=== PATIENT | female | born 1950 | race Caucasian/White ===

== ENCOUNTER 2023-06-25 09:25 | Outpatient (OUT) | payer MEDICARE, SELFPAY ==
--- NOTE | 2023-06-25 | XR_ITS ---
[address] [address] Patient Name: ALEXANDRE PATTEN MRN: [id number] date: 1950 Sex: F Assigned Patient Location: Current Patient Location: Accession/Order Number: [id number] Exam Date: 06/25/2023 09:28 Report Date: 06/25/2023 10:15 At the request of: KAVITHA PARSONS Procedure: XR ankle RT min 3V PROCEDURE: XR ankle RT min 3V, XR foot RT min 3V , 10/31/2021 COMPARISON: 06/19/2022 HISTORY: RIGHT ANKLE PAIN FINDINGS: BONES:Stable tibiotalar arthroplasty with talar dome and tibial plateau replacement. Anatomic alignment with no acute fracture, dislocation or mechanical failure. Stable partial collapse of the talus with subtalar fusion. Degenerative changes with joint space narrowing and marginal osteophyte formation . Stable arthroplasty base of the first proximal phalanx. Stable osteotomy head of the first metatarsal SOFT TISSUES:Negative. No visible soft tissue swelling. EFFUSION:None visible. OTHER: Negative. XR/XR ankle RT min 3V IMPRESSION: Stable tibiotalar joint replacement Electronically authenticated by: MARY CHRISTIAN Date: 06/25/2023 10:15
--- NOTE | 2023-06-25 | XR_ITS ---
[address] [address] Patient Name: ALEXANDRE PATTEN MRN: [id number] date: 1950 Sex: F Assigned Patient Location: Current Patient Location: Accession/Order Number: [id number] Exam Date: 06/25/2023 09:28 Report Date: 06/25/2023 10:15 At the request of: KAVITHA PARSONS Procedure: XR foot RT min 3V PROCEDURE: XR ankle RT min 3V, XR foot RT min 3V , 10/31/2021 COMPARISON: 06/19/2022 HISTORY: RIGHT ANKLE PAIN FINDINGS: BONES:Stable tibiotalar arthroplasty with talar dome and tibial plateau replacement. Anatomic alignment with no acute fracture, dislocation or mechanical failure. Stable partial collapse of the talus with subtalar fusion. Degenerative changes with joint space narrowing and marginal osteophyte formation . Stable arthroplasty base of the first proximal phalanx. Stable osteotomy head of the first metatarsal SOFT TISSUES:Negative. No visible soft tissue swelling. EFFUSION:None visible. OTHER: Negative. XR/XR foot RT min 3V IMPRESSION: Stable tibiotalar joint replacement Electronically authenticated by: MARY CHRISTIAN Date: 06/25/2023 10:15
== END 2023-06-25 09:26 | disposition home or self-care (01) ==
LOC: EC 09:25
PROVIDERS: PCP Internal Medicine; Visit Provider Podiatrist Foot & Ankle Surgery
DX: M19.071 Primary osteoarthritis, right ankle and foot (principal); Z96.661 Presence of right artificial ankle joint
CPT/HCPCS: 73610; 73630

== ENCOUNTER 2023-07-14 12:01 | Outpatient (OUT) | payer MEDICARE, SELFPAY ==
--- NOTE | 2023-07-14 12:36 | P.CN_ITS ---
Consult Note: HPI Data of Consult Patient: new to practice Consult date: 07/14/23 Requesting Physician: James Quigley MD Primary Care Provider: ELSIE JEFFREY Consult Narrative Reason for consult: low back, left hip and leg pain Narrative: 72yof who presents for evaluation. worsening left low back pain with radiation into left hip and leg. ongoing for years, but continues to worsen and makes it difficult to sleep. has engaged in >6 weeks of provider directed home exercise program, with limited benefit. uses celebrex with mild benefit. denies adverse med side effects. cc:: CC: James Quigley MD Review of Systems ROS Status of ROS 10 or more systems reviewed and unremark able except as noted in history and below Exam Narrative Exam Narrative: Psych-alert and oriented x 3. Attentive and appropriate, constitutionally normal, displays normal mood and affect per situation. There are no obvious deficits in memory, reasoning, or intellect.? Skin-no obvious rashes, bruising, erythema noted to the patient's area of pain.? Extremities- extremities are warm with minimal edema and palpable pulses. Lumbar-tenderness to palpation noted in the lumbar spine and paraspinal musculature. Pain is elicited with flexion, extension, and lateral rotation of the lumbar spine. Range of motion is diminished with these motions. Facet loading maneuvers are positive.? Strength-noted to be unremarkable with the exception of decreased strength rated at 4 out of 5 in left quadriceps femoris, anterior tibialis. Sensory-no notable sensory deficits in the bilateral lower extremities to touch or pinprick in all dermatomal distributions with the exception to decreased sensation to the left L4, 5 dermatomal distribution Coordination remains intact.? Gait remains non-antalgic. Assessment and Plan Assessment and Plan (1) Lumbar stenosis with neurogenic claudication: Plan 72yof who presents for evaluation. failed conservative measures, as noted. most recent mri from 2019, so given worsening symptoms and failure of conservative measures, will have her undergo lumbar mri without contrast. she is in agreement. meds reviewed, no changes at this time. follow up after imaging.
== END 2023-07-14 12:02 | disposition home or self-care (01) ==
LOC: PM 12:02
PROVIDERS: PCP Internal Medicine; Visit Provider Anesthesiology
DX: M48.062 Spinal stenosis, lumbar region with neurogenic claudication (principal)
CPT/HCPCS: G0463

== ENCOUNTER 2023-08-07 07:58 | Outpatient (OUT) | payer MEDICARE, SELFPAY ==
--- NOTE | 2023-08-07 08:12 | P.CN_ITS ---
Consult Note: HPI Data of Consult Patient: known to practice within the last 3 years Consult date: 07/14/23 Requesting Physician: Kassie Andrade NP Primary Care Provider: ELSIE JEFFREY Consult Narrative Reason for consult: low back, left hip and leg pain Narrative: 72yof who presents for evaluation. worsening left low back pain with radiation into left hip and leg. ongoing for years, but continues to worsen and makes it difficult to sleep. has engaged in >6 weeks of provider directed home exercise program, with limited benefit. uses celebrex with mild benefit. denies adverse med side effects. recently underwent lumbar MRI, consistent with multilevel canal and neuroforaminal stenosis and facet hypertrophy. Patient reports pain improving, now 2-3/10 increasing to 3-4. Pain in low back without radiation, annoying stiff . cc:: CC: Kassie Andrade NP Review of Systems ROS Status of ROS 10 or more systems reviewed and unremark able except as noted in history and below PFSH [facility] Medical History (Updated 08/07/23 @ 08:22 by Kassie Andrade NP) Osteoarthritis ?M19.90 - Unspecified osteoarthritis, unspecified site (ICD-10) Acid reflux ?K21.9 - Gastro-esophageal reflux disease without esophagitis (ICD-10) COPD (chronic obstructive pulmonary disease) ?J44.9 - Chronic obstructive pulmonary disease, unspecified (ICD-10) Palpitations ?R00.2 - Palpitations (ICD-10) HTN (hypertension) ?I10 - Essential (primary) hypertension (ICD-10) Surgical History (Updated 07/14/23 @ 14:45 by Sri Morocho RN) History of carpal tunnel release ?Z98.890 - Other specified postprocedural states (ICD-10) History of knee replacement ?Z96.659 - Presence of unspecified artificial knee joint (ICD-10) History of total ankle replacement ?Z96.669 - Presence of unspecified artificial ankle joint (ICD-10) History of arthroscopic knee surgery ?Z98.890 - Other specified postprocedural states (ICD-10) Hx of cholecystectomy ?Z90.49 - Acquired absence of other specified parts of digestive tract (ICD- 10) History of tubal ligation ?Z98.51 - Tubal ligation status (ICD-10) Meds Home Medications and Allergies Home Medications ?Medication ?Instructions ?Recorded ?Confirmed ?Type atorvastatin 40 mg tablet 40 mg PO DAILY 07/14/23 07/14/23 History budesonide-formoterol HFA 160 2 inh inhalation BID 07/14/23 07/14/23 History mcg-4.5 mcg/actuation aerosol inhaler (Breyna) celecoxib 200 mg capsule (Celebrex) 200 mg PO DAILY 07/14/23 07/14/23 History colestipol 1 gram tablet (Colestid) 1 g PO DAILY 07/14/23 07/14/23 History hydrochlorothiazide 25 mg tablet 25 mg PO DAILY 07/14/23 07/14/23 History lisinopril 10 mg tablet 10 mg PO DAILY 07/14/23 07/14/23 History loperamide 2 mg capsule 2 mg PO Q6H PRN loose stool 07/14/23 07/14/23 History loratadine 10 mg tablet (Claritin) 10 mg PO DAILY 07/14/23 07/14/23 History omeprazole 20 mg capsule,delayed 20 mg PO DAILY 07/14/23 07/14/23 History release Allergies Allergy/AdvReac Type Severity Reaction Status Date / Time codeine Allergy Verified 07/14/23 14:36 Exam Constitutional Documenting provider has reviewed patient's vital signs: yes Common normals: no apparent distress, oriented x3, healthy appearing, alert and well nourished General appearance: cooperative HENMT Common normals: normocephalic, hearing grossly normal bilaterally and moist oral mucous membranes Head and scalp: normocephalic Eye Common normals: PERRL Pupil: PERRL Neck & C-Spine Common normals: full ROM General: normal visual inspection Chest Common normals: inspection of chest normal Respiratory Common normals: normal respiratory effort, no retractions and no use of accessory muscles Back & Pelvis Lumbar spine/lower back: normal to inspection, pain with ROM and straight leg raise negative bilaterally Sacroiliac joints: SI joints normal Extremity Common normals: normal to inspection and full ROM Neuro Common normals: oriented x3, CN's II-XII intact bilaterally, moves all extremities, no focal motor deficits, no sensory deficits noted, deep tendon reflexes 2+ bilaterally and gait normal Sensorium/orientation: alert Motor exam: strength 5/5 throughout and no movement abnormalities noted Psych Common normals: mental status grossly normal, thought process normal, cooperative, affect normal, speech normal and activity/motor behavior normal Speech: normal speech Thought process: normal thought process Results Imaging lumbar mRI: Attestation: I have reviewed the pertinent imaging results. Additional Findings Additional findings: If on a controlled substance or opioids, I have checked an [place] report on this patient and there are no aberrancies noted in the prescribing history.??If on a controlled substance or opioid a drug screen was completed and reviewed within the last year, and if there has not been a drug screen completed we ordered one today to monitor higher risk, state monitored pain medication use. As part of providing excellent, safe, comprehensive care, the following was completed at our patient's visit: 1. A medication reconciliation and review to ensure accurate knowledge of current/active medications, including asking our patients to inform us about any [id number] medications or herbal remedies/nutritional supplements/alternative remedies. 2. A review to specifically ensure our patients have had annual screening for screening for depression, screening for tobacco use, and screening for unhealthy alcohol use. For concerning screenings had a discussion with the patient, provided patient education, and recommended follow-up with primary care provider when appropriate. If patient noted with a risk of falling, they received education on strength, gait, and balance training to prevent future risk of falling. Assessment and Plan Assessment and Plan (1) Lumbar stenosis with neurogenic claudication: (2) Myofascial pain: Plan lumbar MRI reviewed with patient, defer injection therapy at this time. consider TFESIs in the future start cyclobenzaprine 5-10mg BID PRN myofascial pain continue PRN celebrex and tylenol f/u 1 month
--- OUTSIDE RECORDS SUMMARY | 2023-08-07 08:15 | XMS_ITS | CCD ---
Author Organization [facility] Care Team Providers Care Optical Engineering Technician Name Role Phone Elsie Jeffrey Primary Care Provider Mary Francis Unavailable Elsie Jeffrey MD Primary Care Provider DR MARY CHRISTIAN V Consulting Unavailable ALESHA, DR ZUNIGA Primary Care Unavailable KAVITHA PARSONS Attending Unavailable KAVITHA PARSONS Admitting Unavailable KAVITHA PARSONS Consulting Unavailable KAVITHA PARSONS Admitting Unavailable DR MARY CHRISTIAN V Consulting Unavailable ALESHA, DR ZUNIGA Primary Care Unavailable KAVITHA PARSONS Attending Unavailable KAVITHA PARSONS Consulting Unavailable Elsie Jeffrey MD Primary Care Provider ELSIE JEFFREY Referring Unavailable ELSIE JEFFREY Primary Care Unavailable FREDDY BADILLO JR Referring Unavailabl ELSIE Carney Primary Care Unavailable FREDDY BADILLO JR Referring Unavailabl ELSIE Carney Primary Care Unavailable FREDDY BADILLO JR Attending Unavailabl FREDDY Camilo JR Attending Unavailabl FREDDY Camilo JR Referring Unavailabl ELSIE Carney Primary Care Unavailable ELSIE JEFFREY Referring Unavailable ELSIE JEFFREY Primary Care Unavailable FREDDY BADILLO JR Admitting Unavailabl FREDDY Camilo JR Attending Unavailabl ELSIE Carney Primary Care Unavailable MARY SINGH Attending Unavailable ELSIE JEFFREY Primary Care Unavailable FREDDY BADILLO JR Attending UnavailFREDDY Jiménez JR Referring Unavailabl ELSIE Carney Primary Care Unavailable Elsie Jeffrey MD Primary Care Provider Elsie Jeffrey MD Primary Care Unav ailable Zoya LINDSAY, Elsie Dowd Consulting Unav ailable Skyler Molina OD Attending Unavailable Giedmiki LINDSAY, James Salgado Attending Unavailable Elsie Jeffrey MD Primary Care MD James Molina Attending Provider MD Elsie Jeffrey Primary Care Provider SHANICE NIÑO Attending Unavailabl SHANICE Pearson Referring Unavailabl e SEARS, ELSIE Wilson Primary Care Unavailable SEARS, ELSIE Wilson Attending Unavailable SEARS, ELSIE Wilson Referring Unavailable SEARS, RACHELOPHER Steve Primary Care Unavailable RENAN RICHARDSON Referring Unavailable SEARS, ELSIE Wilson Primary Care Unavailable RENAN RICHARDSON Referring Unavailable SEARS, SHARRIER Steve Primary Care Unavailable SHANICE NIÑO Attending Unavailabl kanwal NIÑO, SHANICE VINCENT Referring Unavailabl e SEARS, RACHELOPHJENNIFER Wilson Primary Care Unavailable SEARS, ELSIE Wilson Attending Unavailable SEARS, ELSIE Wilson Referring Unavailable SEARS, ELSIE Wilson Primary Care Unavailable SEARS, ELSIE Wilson Attending Unavailable SEARS, ELSIE Wilson Referring Unavailable SEARS, ELSIE Wilson Primary Care Unavailable SEARS, ELSIE Wilson Attending Unavailable SEARS, ELSIE Wilson Referring Unavailable SEARS, ELSIE Wilson Primary Care Unavailable Sears, Elsie Wilson Primary Care Unavailable Giedraitis, Andrius Attending Unavailable Giedraitis, Andrius Admitting Unavailable JENNIFER WHITAKER Attending Unavailable SINGLETONFLAVIO Attending Unavailable SINGLETONFLAVIO Attending Unavailable SINGLETONFLAVIO Attending Unavailable SINGLETONFLAVIO Attending Unavailable SINGLETONFLAVIO Attending Unavailable FLAVIO SINGLETON Referring Unavailable FLAVIO SINGLETON Attending Unavailable DAPHNE CONWAY Attending Unavailable DAPHNE CONWAY Attending Unavailable Allergies Allergy Classification Reported Allergen(s) Allergy Type Date of Onset Reaction(s) Facility (4 sources) Caffeine Drug Allergy 0 [email or web address] Phone: (17 sources) Codeine; Translations: [CODEINE] Drug Allergy 4 Palpitations, anaphylaxis, Tachycardia, Unknown [email or web address] Phone: (1 source) Caffeine Drug Allergy 8 [facility] Repository (1 source) Codeine Drug Allergy [facility] Repository (1 source) Codeine Drug Allergy 4 [facility] Repository Medications Current Medications Medication Drug Class(es) Dates Sig (Normalized) Sig (Original) acetaminophen 325 mg / oxyCODONE hydrochloride 5 mg oral tablet (2 sources) Opioid Agonist Start: 05-20-2023 End: 05-25-2023 take 1 tablet by mouth every six hours for pain oxyCODONE-acetamin ophen (Percocet) 5-325 MG tablet Indications: Status post total left knee replacement Take 1 tablet by mouth every 6 (six) hours if needed for moderate pain for up to 5 days 20 tablet 0 05/20/2023 05/25/2023 Active [id number] 200 actuat albuterol 0.09 mg/actuat metered dose inhaler (11 sources) beta2-Adrenergic Agonist Start: 02-15-2016 take 2 puff(s) by inhalation every four hours as needed for wheezing albuterol sulfate HFA 108 (90 BASE) MCG/ACT inhaler Inhale 2 puffs into the lungs every 4 hours as needed for Wheezing 1 Inhaler 6 02/15/2016 Active Start: 02-15-2016 take 2 puff(s) by in halation every four hours as needed for wheezing albuterol sulfate HFA 108 (90 BASE) MCG/ACT inhaler Inhale 2 puffs into the lungs every 4 hours as needed for Wheezing 1 Inhaler 6 02/15/2016 Active take 2 puff(s) by in halation every four hours for wheezing albuterol HFA 90 mcg/act inhaler Inhale 2 puffs every 4 (four) hours if needed for wheezing. 0 Active take 2 puff(s) by in halation every six hours as needed for wheezing albuterol (PROVENTIL HFA;VENTOLIN HFA) 90 mcg/actuation inhaler Inhale 2 puffs every 6 (six) hours as needed for wheezing. 0 Active take 2 puff(s) by in halation every four hours as needed ProAir HFA 108 (90 Base) MCG/ACT 2 puffs as needed Inhalation every 4 hrs Not-Taking atorvastatin 40 mg oral tablet (16 sources) HMG-CoA Reductase Inhibitor Start: 03-19-2019 take 1 tablet by mouth once daily atorvastatin (LIPITOR) 40 MG tablet take 1 tablet by mouth once daily 90 tablet 3 03/13/2021 Active 60 actuat budesonide 0.16 mg/actuat / formoterol fumarate 0.0045 mg/actuat metered dose inhaler (16 sources) Corticosteroid, beta2-Adrenergic Agonist Start: 10-09-2021 take 2 puff(s) by mouth twice daily SYMBICORT 160-4.5 MCG/ACT AERO inhale 2 puffs by mouth and INTO THE LUNGS twice a day 30.6 g 3 10/09/2021 Active Start: 10-05-2020 take 2 puff(s) by in halation twice daily budesonide-formoterol (SYMBICORT) 160-4.5 MCG/ACT AERO Inhale 2 puffs into the lungs 2 times daily 3 Inhaler 3 10/05/2020 Active Start: 05-18-2018 take 2 puff(s) by in halation twice daily budesonide-formoterol (SYMBICORT) 80-4.5 MCG/ACT AERO Inhale 2 puffs into the lungs 2 times daily 3 Inhaler 3 05/18/2018 Active take 2 puff(s) by in halation in the morning budesonide-formoterol (Symbicort) 160-4.5 MCG/ACT inhaler Inhale 2 puffs in the morning and 2 puffs before bedtime. Rinse mouth with water after use to reduce aftertaste and incidence of candidiasis. Do not swallow.. 0 Active take 2 puff(s) by in halation in the morning budesonide-formoterol (SYMBICORT) 80-4.5 mcg/actuation inhaler Inhale 2 puffs in the morning and 2 puffs before bedtime. 0 Active take 2 puff(s) by in halation twice daily Symbicort 80-4.5 MCG/ACT 2 puffs Inhalation Twice a day Active Calcium (2 sources) Phosphate Binder, Calcium take 1 tablet by mouth twice daily at mealtime Calcium 600 MG 1 tablet with meals Orally Twice a day Active calcium carbonate 1500 mg oral tablet (9 sources) take 1 tablet by mouth in the morning calcium carbonate (Calcium 600) 600 MG tablet Take 600 mg by mouth in the morning. 0 Active take 1 tablet by mouth every twe lve hours Calcium 600 MG 1 tablet with meals Orally Twice a day Active Calcium Carbonate-Vit D-Min 600-400 MG-UNIT TABS (5 sources) take 1 tablet by mouth once daily Calcium Carbonate-Vit D-Min 600-400 MG-UNIT TABS Take 1 tablet by mouth daily 0 Active celecoxib 200 mg oral capsule (16 sources) Nonsteroidal Anti-inflammatory Drug Start: 05-14-19 19 take 1 capsule by mouth once daily celecoxib (CELEBREX) 200 MG capsule Take 1 capsule by mouth daily 90 capsule 3 06/28/2021 Active colestipol hydrochloride 1000 mg oral tablet (12 sources) Bile Acid Sequestrant Start: 03-12-20 21 take 1 tablet by mouth in the morning colestipoL (COLESTID) 1 g tablet Take 1 tablet (1 g total) by mouth in the morning. 0 04/30/2022 Active Start: 01-18-2021 take 2 tablets by [facility] every twenty-four hours Colestipol HCl 1 GM 2 tablets Orally Once a day for 30 days Dec, Active diclofenac potassium 50 mg oral tablet (1 source) Nonsteroidal Anti-inflammatory Drug take 50 mg by mouth twice daily DICLOFENAC SODIUM ER PO Take 50 mg by mouth 2 times daily 0 Active folic acid 1 mg / polysaccharide iron complex 150 mg / vitamin b12 0.025 mg oral capsule (2 sources) Vitamin B12 Start : 04-28 End: 05-28 take 1 tablet by mouth in the morning Iron Polysacch [id number]-D99-GO (Poly-Iron 150 Forte) 150-0.025-1 MG capsule Indications: Arthritis of left knee , Pre-op examination Take 1 tablet by mouth in the morning. 30 capsule 1 04/28/2023 05/28/2023 Active hydroCHLOROthiazide 25 mg oral tablet (16 sources) Thiazide Diuretic Start : 08-10 take 1 tablet by mouth once daily hydroCHLOROthiazide (HYDRODIURIL) 25 MG tablet take 1 tablet by mouth once daily 90 tablet 3 08/10/2021 Active lisinopril 10 mg oral tablet (16 sources) Angiotensin Converting Enzyme Inhibitor Start : 04-06 take 1 tablet by mouth once daily lisinopril (PRINIVIL;ZESTRIL) 10 MG tablet take 1 tablet by mouth once daily 90 tablet 3 02/16/2021 Active loperamide hydrochloride 2 mg oral capsule (13 sources) Opioid Agonist Start : 11-21 take 1 capsule by mouth every twenty-four hours Loperamide HCl 2 MG 1 capsule Orally daily for 90 day(s) Nov, Active Start: 11-21-2020 take 1 capsule by [facility] every twelve hours Loperamide HCl 2 MG 1 CAPSULE Orally BID for 90 day(s) Nov, Not-Taking take 1 capsule by mo uth four times daily as needed for diarrhea loperamide (Imodium) 2 MG capsule Take 2 mg by mouth 4 (four) times a day as needed for diarrhea. 0 Active loratadine 10 mg oral tablet (5 sources) loratadine (Claritin) 10 MG tablet Take by mouth. 0 Active omeprazole 20 mg delayed release oral capsule (16 sources) Proton Pump Inhibitor Start: 019 take 1 capsule by mouth once daily omeprazole (PRILOSEC) 20 MG delayed release capsule take 1 capsule by mouth once daily 90 capsule 3 12/28/2020 Active pantoprazole 40 mg delayed release oral tablet (2 sources) Proton Pump Inhibitor Start: 022 take 1 tablet by mouth every twenty-four hours Pantoprazole Sodium 40 MG 1 tablet Orally Once a day for 30 day(s) May, Active sulfamethoxazole 800 mg / trimethoprim 160 mg oral tablet (2 sources) Dihydrofolate Reductase Inhibitor Antibacterial, Sulfonamide Antimicrobial Start: 020 End: 020 take 1 tablet by mouth twice daily sulfamethoxazole-tr imethoprim (BACTRIM DS;SEPTRA DS) 800-160 MG per tablet Indications: Dysuria Take 1 tablet by mouth 2 times daily for 7 days 14 tablet 0 04/26/2019 05/03/2019 Active Completed/Discontinued Medications Medication Drug Class(es) Dates Sig (Normalized) Sig (Original) Suprep Bowel Prep . (1 source) Start: 06-29-2012 Suprep Bowel Prep . as directed Orally 1 for 1 Jun, Not-Taking Problems Active Problems Problem Classification Problem Date Documented Da te Episodic/Chronic Acquired foot deformities (5 sources) Hammer toe; Translations: [Other hammer toe(s) (acquired), left foot] Onset: 04-28-2023 04-28-2023 Chronic Chronic obstructive pulmonary disease and bronchiectasis (12 sources) Chronic obstructive lung disease; Translations: [Chronic obstructive pulmonary disease, unspecified] Onset: 08-14-2014 08-19-2016 Chronic Complication of device; implant or graft (5 sources) Mechanical complication of internal joint prosthesis; Translations: [Broken internal joint prosthesis, unspecified site, subsequent encounter] Onset: 04-28-2023 04-28-2023 Episodic Disorders of lipid metabolism (20 sources) Hyperlipidemia; Translations: [Mixed hyperlipidemia] Onset: 07-04-2014 Resolved: 08-19-2016 08-19-2016 Chronic Esophageal disorders (11 sources) Gastro-esophageal reflux disease with esophagitis; Translations: [Reflux esophagitis] Onset: 05-31-2014 05-31-2014 Chronic Essential hypertension (12 sources) Hypertensive disorder; Translations: [Essential (primary) hypertension] Onset: 05-16-1999 08-19-2016 Chronic Genitourinary symptoms and ill-defined conditions (3 sources) Dysuria; Translations: [Increased frequency of urination] Onset: 04-16-2023 Episodic Joint disorders and dislocations; trauma-related (5 sources) Derangement of left knee; Translations: [Unspecified internal derangement of left knee] Onset: 04-28-2023 04-28-2023 Chronic Osteoarthritis (20 sources) Primary osteoarthritis, right ankle and foot; Translations: [Osteoarthritis of left knee joint] Onset: 08-10-2018 Chronic Other acquired deformities (5 sources) Equinus contracture of the ankle; Translations: [Contracture, right ankle] Onset: 04-28-2023 04-28-2023 Chronic Other acquired deformities (5 sources) Contracture of joint of left ankle; Translations: [Contracture, left ankle] Onset: 04-28-2023 04-28-2023 Chronic Other and unspecified benign neoplasm (1 source) Benign neoplasm of soft tissue; Translations: [Melanocytic nevi, unspecified] Episodic Other bone disease and musculoskeletal deformities (4 sources) 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, right ankle; Translations: [OSTEONECROSIS PREV TRAUMA RT ANKLE] Onset: 10-31-2021 Chronic Other bone disease and musculoskeletal deformities (5 sources) Osteonecrosis due to trauma; Translations: [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, right ankle] Onset: 04-28-2023 04-28-2023 Chronic Other congenital anomalies (5 sources) Porokeratosis; Translations: [Other specified congenital malformations of skin] Onset: 04-28-2023 04-28-2023 Chronic Other connective tissue disease (9 sources) History of total knee arthroplasty; Translations: [Presence of left artificial knee joint] Onset: 04-28-2023 05-22-2023 Chronic Other gastrointestinal disorders (15 sources) Irritable bowel syndrome; Translations: [Irritable bowel syndrome without diarrhea] Onset: 05-31-2014 05-31-2014 Chronic Other gastrointestinal disorders (5 sources) Irritable bowel syndrome with diarrhea; Translations: [Irritable bowel syndrome with diarrhea] Chronic Other gastrointestinal disorders (3 sources) Irritable bowel syndrome with diarrhea; Translations: [Irritable bowel syndrome with diarrhea K58.0] Onset: 01-18-2021 Resolved: 06-11-2021 Chronic Other gastrointestinal disorders (1 source) Irritable bowel syndrome without diarrhea; Translations: [Irritable bowel syndrome without diarrhea] Onset: 05-31-2014 Chronic Other nervous system disorders (5 sources) Carpal tunnel syndrome of left wrist; Translations: [Carpal tunnel syndrome, left upper limb] Onset: 04-28-2023 04-28-2023 Chronic Other nervous system disorders (5 sources) Chronic pain; Translations: [Other chronic pain] Onset: 04-28-2023 04-28-2023 Chronic Other nervous system disorders (5 sources) Difficulty walking; Translations: [Difficulty in walking, not elsewhere classified] Onset: 04-28-2023 04-28-2023 Chronic Other non-traumatic joint disorders (5 sources) Derangement of right ankle joint; Translations: [Other specific joint derangements of right ankle, not elsewhere classified] Onset: 04-28-2023 04-28-2023 Chronic Other non-traumatic joint disorders (6 sources) Pain in left knee; Translations: [Pain in joint, lower leg] Onset: 04-28-2023 04-28-2023 Episodic Other non-traumatic joint disorders (5 sources) Pain in right knee; Translations: [Pain in joint, lower leg] Onset: 04-28-2023 04-28-2023 Episodic Other non-traumatic joint disorders (5 sources) Arthralgia of the ankle and/or foot; Translations: [Pain in right ankle and joints of right foot] Onset: 04-28-2023 04-28-2023 Episodic Other nutritional; endocrine; and metabolic disorders (7 sources) Morbid obesity; Translations: [Morbid (severe) obesity due to excess calories] Onset: 07-12-2019 07-12-2019 Chronic Other nutritional; endocrine; and metabolic disorders (5 sources) Body mass index 40+ - severely obese; Translations: [Body mass index (BMI) 40.0-44.9, adult] Chronic Other upper respiratory disease (10 sources) Allergic rhinitis; Translations: [Allergic rhinitis, unspecified] Onset: 05-31-2014 05-31-2014 Chronic Peripheral and visceral atherosclerosis (5 sources) Peripheral vascular disease, unspecified; Translations: [Peripheral vascular disease, unspecified] Onset: 04-28-2023 04-28-2023 Chronic Spondylosis; intervertebral disc disorders; other back problems (5 sources) Disorder of lumbar disc; Translations: [Unspecified thoracic, thoracolumbar and lumbosacral intervertebral disc disorder] Onset: 04-28-2023 04-28-2023 Chronic Spondylosis; intervertebral disc disorders; other back problems (1 source) Spinal stenosis, lumbar region without neurogenic claudication; Translations: [Spinal stenosis, lumbar region without neurogenic claudication] Onset: 07-30-2023 Episodic Unclassified (1 source) Patient encounter status; Translations: [Visit for screening mammogram] Unclassified (1 source) left knee degenerative joint disease Onset: 05-13-2023 Past or Other Problems Problem Classification Problem Date Documented Da te Episodic/Chronic Diabetes mellitus without complication (11 sources) Impaired fasting glycaemia; Translations: [Impaired fasting glucose] Onset: 08-19-2016 08-19-2016 Episodic Other bone disease and musculoskeletal deformities (10 sources) Osteopenia; Translations: [Other specified disorders of bone density and structure, unspecified site] Onset: 05-31-2014 05-31-2014 Episodic Other connective tissue disease (1 source) Pain in right foot; Translations: [PAIN IN RIGHT FOOT] Onset: 11-01-2021 Episodic Other gastrointestinal disorders (5 sources) Diarrhea; Translations: [Diarrhea, unspecified] Episodic Other gastrointestinal disorders (1 source) Diarrhea, unspecified Onset: 05-07-2021 Resolved: 05-07-2021 Episodic Other lower respiratory disease (1 source) Other forms of dyspnea; Translations: [Other forms of dyspnea] Onset: 04-30-2023 Episodic Other screening for suspected conditions (not mental disorders or infectious disease) (2 sources) Patient encounter status; Translations: [Encounter for screening mammogram for malignant neoplasm of breast] Onset: 01-14-2023 Episodic Residual codes; unclassified (1 source) Asymptomatic menopausal state; Translations: [Asymptomatic menopausal state] Onset: 01-14-2023 Episodic Results Test Name Value Interpretation Reference Range Facility XR pre/post mri xrayon 07-29 XR pre/post mri xray [facility] Main [place] [address] [place] [address] MRI Report Signed Patient: Gladis Patten MR#: [id number] 3 : 1950 Acct:[id number] Age/Sex: 72 / F ADM Date: 07/30/23 Loc: Room: Type: [facility] Attending Dr: James Quigley MD Copies to: James Quigley MD Ordering Provider: James Quigley MD Date of Service: 07/30/23 MR/MR lumbar spine wo con: LUMBAR STENOSIS ([id number]) XR/XR pre/post mri xray: LUMBAR STENOSIS MR lumbar spine wo con, XR pre/post mri xray 07/30/2023 2:31 PM SIGNS AND SYMPTOMS: Chronic back pain PROTOCOL: Multiplanar multisequence MR images of the lumbar spine were obtained without IV contrast. Frontal and lateral radiograph the lumbar spine were obtained. COMPARISON: 04/05/2019 FINDINGS: Radiographs of the lumbar spine: There is a dextro convex curvature of the lumbar spine. There is 4 mm of anterolisthesis of L5 upon S1 which is unchanged. There is severe disc height loss at L3-L4 with moderate disc height loss at L2-L3, L4-5, and L5-S1. There is endplate sclerosis and anterior osteophyte formation at L3-4. The vertebral body heights are preserved. There is no fracture or dislocation. Atherosclerotic changes are noted in the abdominal aorta. There is evidence of prior cholecystectomy. MRI lumbar spine: Disc height loss and alignment is as noted above. This preservation vertebral body heights. There is Modic type III endplate sclerosis at L3-L4. There is mild Modic type I endplate edema at L2-L3. The conus terminates at the superior endplate of the L1 vertebral body level. There is Schmorl's information the inferior endplate at T12 and T11. No epidural or paraspinous fluid collection is appreciated. At T12-L1: There is a normal disc, central canal, and neural foramen. At L1-L2: There is a broad-based bulge without significant stenosis. At L2-L3: There is a broad-based disc bulge with facet hypertrophy. There is mild spinal canal narrowing with moderate bilateral neural foraminal narrowing. This is worse when compared to the prior exam. At L3-L4: There is a circumferential disc bulge with endplate osteophyte formation and facet hypertrophy. There is mild spinal canal stenosis. There is mild right and moderate to severe left neural foraminal narrowing with mass effect on the exiting left L3 nerve roots. This is unchanged. There is a broad-based disc bulge with facet hypertrophy. At L4-L5: There is mild bilateral neural foraminal narrowing with minimal spinal canal narrowing. This is unchanged. At L5-S1: There is 4 mm of anterolisthesis of L5 upon S1 which is unchanged. There is a broad-based disc bulge with facet hypertrophy and facet effusions. There is mild spinal canal stenosis with mild left and moderate to severe right neural foraminal narrowing. This is similar to the prior exam. There is mild mass effect on the exiting right L5 nerve roots. MR/MR lumbar spine wo con IMPRESSION: At L2-L3: There is a broad-based disc bulge with facet hypertrophy. There is mild spinal canal narrowing with moderate bilateral neural foraminal narrowing. This is worse when compared to the prior exam. At L3-L4: There is a circumferential disc bulge with endplate osteophyte formation and facet hypertrophy. There is mild spinal canal stenosis. There is mild right and moderate to severe left neural foraminal narrowing with mass effect on the exiting left L3 nerve roots. This is unchanged. There is a broad-based disc bulge with facet hypertrophy. At L5-S1: There is 4 mm of anterolisthesis of L5 upon S1 which is unchanged. There is a broad-based disc bulge with facet hypertrophy and facet effusions. There is mild spinal canal stenosis with mild left and moderate to severe right neural foraminal narrowing. This is similar to the prior exam. There is mild mass effect on the exiting right L5 nerve roots. There is a dextro convex curvature similar to the prior exam. Impression dictated by: Miles Laughlin M.D.07/30/2023 4:39 PM Dictation Location: [place] [address] Transcribed By: [facility] 07/30/23 163 Dictated By: Miles Laughlin II, MD 07/30/23 163 Signed By: 07/30/23 163 Normal [facility] XR KNEE LT 1 OR 2 VWSon 04-22 XR KNEE LT 1 OR 2 VWS XR KNEE LT 1 OR 2 VWS Clinical history: Post left the replacement. Comparisons: None Findings: 2 views left knee obtained, AP and crosstable lateral. Patient is status post left total knee arthroplasty. There is no malalignment. No periprosthetic radiolucency nor fracture is identified. Postoperative changes of soft tissue gas and anterior cutaneous tay are present. IMPRESSION: Intact left total knee arthroplasty. Finalized by Allan Gonsales MD on 05/13/2023 11:10 AM Normal [facility] Bacteria identified Cx Nom ( U)on 04-17-2023 Service comment (Unsp spec) [Interp] 10-50,000 ORGANISMS/mL NORMAL UROGENITAL GRISEL [facility] ALT No additional P-5'-P [Ca talytic activity/Vol]on 04-16-2023 ALT [Catalytic activity/Vol] 20 U/L Normal 0-31 [facility] Comment on above: Performed By: #### C BCA, 1744-2, 1919-11, [facility], [address]-2 #### [facility] ([id number]) [address], [address] [place] [address] Ady 04-16-2023 AST [Catalytic activity/Vol] 19 U/L Normal 0-41 [facility] Comment on above: Performed By: #### C BCA, 1744-2, 1919-11, [facility], [address]-2 #### [facility] ([id number]) [address], [address] [place] [address] BASIC METABOLIC PANLon 04-16 Anion gap [Moles/Vol] 8 mmol/L Normal 5-15 [facility] Comment on above: Performed By: #### Abhishek BCA, 1744-2, 1919-11, [place], [address]-4 #### [facility] ([id number]) [address], [address] [place] [address] Calcium [Mass/Vol] 9.2 mg/dL Normal 8.5-10.5 [facility] Comment on above: Performed By: #### C BCA, 1744-2, 1919-11, BMP, 24433-8 #### [facility] ([id number]) [address], [address] [place] [address] Chloride [Moles/Vol] 103 mmol/L Normal 98-109 [facility] Comment on above: Performed By: #### Abhishek BCA, 4-2, 1919-11, BMP, 57538-3 #### [facility] ([id number]) [address], [address] [place] [address] CO2 [Moles/Vol] 29 mmol/L Normal 22-32 [facility] Comment on above: Performed By: #### Abhishek BCA, 4-2, 1919-11, BMP, 87057-4 #### [facility] ([id number]) [address], [address] [place] [address] Creatinine [Mass/Vol] 0.63 mg/dL Normal 0.40-1.00 [facility] Comment on above: Result Comment: METH OD TRACEABLE TO IDMS STANDARD Performed By: #### Abhishek BCA, 1744-2, 1919-11, BMP, 08312-2 #### [facility] ([id number]) [address], [address] [place] [address] eGFR (CKD-EPI) NON-RACE DEPENDENT >90 Normal >59 [facility] Comment on above: Result Comment: Reported eGFR is based on the CKD-EPI 2020 equation that does not use a race coefficient. Performed By: #### Abhishek GERONIMO, 1743-, 1919-11, BMP, 17231-3 #### [facility] ([id number]) [address], [address] [place] [address] Glucose [Mass/Vol] 103 mg/dL High 65-99 [facility] Comment on above: Performed By: #### Abhishek GERONIMO, 1743-05, 1919-11, BMP, 14342-7 #### [facility] ([id number]) [address], [address] [place] [address] Potassium [Moles/Vol] 3.7 mmol/L Normal 3.5-5.0 [facility] Comment on above: Performed By: #### Abhishek GERONIMO, 1743-05, 1919-11, BMP, 97852-5 #### [facility] ([id number]) [address], [address] [place] [address] Sodium [Moles/Vol] 140 mmol/L Normal 134-146 [facility] Comment on above: Performed By: #### Abhishek GERONIMO, 1743-05, 1919-11, BMP, 62632-2 #### [facility] ([id number]) [address], [address] [place] [address] Urea nitrogen [Mass/Vol] 17 mg/dL Normal 5-27 [facility] Comment on above: Performed By: #### Abhishek GERONIMO, 2, 1919-11, BMP, 60814-4 #### [facility] ([id number]) [address], [address] [place] [address] CBC AND AUTO DIFFon 04-16-20 23 ABSOLUTE BASOPHIL 0.0 X10E9/L Normal 0.0-0.2 [facility] Comment on above: Performed By: #### Abhishek GERONIMO, 1743-2, 1919-11, BMP, 03919-4 #### [facility] ([id number]) [address], [address] [place] [address] ABSOLUTE NEUTROPHIL 3.7 X10E9/L Normal 1.5-6.6 [facility] Comment on above: Performed By: #### Abhishek BCA, 4-2, 1919-11, BMP, 37378-6 #### [facility] ([id number]) [address], [address] [place] [address] Basophils/100 WBC (Bld) 0.3 % Normal [facility] Comment on above: Performed By: #### Abhishek GERONIMO, 1743-, 1919-11, BMP, 36576-4 #### [facility] ([id number]) [address], [address] [place] [address] Eosinophils (Bld) [#/Vol] 0.1 10*3/uL Normal 0.0-0.4 [facility] Comment on above: Performed By: #### Abhishek GERONIMO, 1743-2, 1919-11, BMP, 15252-7 #### [facility] ([id number]) [address], [address] [place] [address] Eosinophils/100 WBC (Bld) 1.3 % Normal [facility] Comment on above: Performed By: #### Abhishek GERONIMO, 1743-2, 1919-11, BMP, 73498-8 #### [facility] ([id number]) [address], [address] [place] [address] Erythrocyte distribution width (RBC) [Ratio] 13.5 % Normal 11.5-15.0 [facility] Comment on above: Performed By: #### Abhishek BCA, 4-2, 1919-11, BMP, 48019-4 #### [facility] ([id number]) [address], [address] [place] [address] Hematocrit (Bld) [Volume fraction] 42.2 % Normal 35-47 [facility] Comment on above: Performed By: #### Abhishek GERONIMO, 4-2, 1919-11, BMP, 39697-3 #### [facility] ([id number]) [address], [address] [place] [address] Hemoglobin (Bld) [Mass/Vol] 14.3 g/dL Normal 11.7-15.5 [facility] Comment on above: Performed By: #### Abhishek GERONIMO, 4-2, 1919-11, BMP, 44524-0 #### [facility] ([id number]) [address], [facility] [address] [place] [address] Lymphocytes (Bld) [#/Vol] 1.3 10*3/uL Normal 1.0-3.5 [facility] Comment on above: Performed By: #### Abhishek GERONIMO, 1743-2, 1919-11, BMP, 95864-3 #### [facility] ([id number]) [address], [address] [place] [address] Lymphocytes/100 WBC (Bld) 23.2 % Normal [facility] Comment on above: Performed By: #### Abhishek GERONIMO, 1743-2, 1919-11, BMP, 75663-7 #### [facility] ([id number]) [address], [address] [place] [address] MCH (RBC) [Entitic mass] 31.6 pg Normal 27-34 [facility] Comment on above: Performed By: #### Abhishek GERONIMO, 4-2, 1919-11, BMP, 91304-4 #### [facility] ([id number]) [address], [address] [place] [address] MCHC (RBC) [Mass/Vol] 33.8 g/dL Normal 32-36 [facility] Comment on above: Performed By: #### Abhishek GERONIMO, 4-2, 1919-11, BMP, 08275-2 #### [facility] ([id number]) [address], [address] [place] [address] MCV (RBC) [Entitic vol] 94 fL Normal 80-100 [facility] Comment on above: Performed By: #### Abhishek GERONIMO, 4-2, 1919-11, BMP, 85486-2 #### [facility] ([id number]) [address], [address] [place] [address] Monocytes (Bld) [#/Vol] 0.6 10*3/uL Normal 0-0.9 [facility] Comment on above: Performed By: #### Abhishek GERONIMO, 4-, 1919-11, BMP, 11915-9 #### [facility] ([id number]) [address] [place] [address] Monocytes/100 WBC (Bld) 10.8 % Normal [facility] Comment on above: Performed By: #### Abhishek GERONIMO, 1743-, 1919-11, BMP, 24401-4 #### [facility] ([id number]) [address], [address] [place] [address] Neutrophils/100 WBC (Bld) 64.4 % Normal [facility] Comment on above: Performed By: #### Abhishek GERONIMO, 1743-, 1919-11, BMP, 02391-6 #### [facility] ([id number]) [address], [address] [place] [address] Platelet mean volume (Bld) [Entitic vol] 8.5 fL Normal 7-12 [facility] Comment on above: Performed By: #### Abhishek GERONIMO, 4-2, 1919-11, BMP, 21706-7 #### [facility] ([id number]) [address], [address] [place] [address] Platelets (Bld) [#/Vol] 233 10*3/uL Normal 150-450 [facility] Comment on above: Performed By: #### Abhishek GERONIMO, 1743-2, 1919-11, BMP, 26763-7 #### [facility] ([id number]) [address], [address] [place] [address] RBC COUNT 4.52 X10E12/L Normal 3.80-5.20 [facility] Comment on above: Performed By: #### Abhishek GERONMIO, 1743-2, 1919-11, BMP, 33410-5 #### [facility] ([id number]) [address], [facility] [address] [place] [address] WBC (Bld) [#/Vol] 5.7 10*3/uL Normal 4.0-11.0 [facility] Comment on above: Performed By: #### Abhishek GERONIMO, 1743-, 1919-11, BMP, 11378-8 #### [facility] ([id number]) [address], [address] [place] [address] HGB A1C (GLYCO-HGB)on 2022 Glucose [Mass/Vol] 117 mg/dL Normal [facility] Comment on above: Performed By: #### Abhishek GERONIMO, 1743-05, 1919-11, BMP, 78161-6 #### [facility] ([id number]) [address], [facility] [address] [place] [address] HbA1c (Bld) [Mass fraction] 5.7 % High 4.4-5.6 [facility] Comment on above: Result Comment: NOTE ADA Guidelines Result HgbA1c Normal : less than 5.7 % Prediabetes : 5.7 % to 6.4 % Diabetes : > 6.4 % Use with caution in patients with abnormal hemoglobin variants as the half-life of red blood cells and in vivo glycation rates are affected. Performed By: #### Abhishek GERONIMO, 4-2, 1919-11, BMP, 03467-8 #### [facility] ([id number]) [address] [place] [address] Lipid 1996 panelon 3 Cholesterol [Mass/Vol] 162 mg/dL Normal 150-200 [facility] Comment on above: Performed By: ###Sebastián Weiss BCA, 1744-2, 1919-11, BMP, 06838-1 #### [facility] ([id number]) [address], [address] [place] [address] Cholesterol in HDL [Mass/Vol] 64 mg/dL Normal >39 [facility] Comment on above: Result Comment: HDL <40 mg/dL - High Risk HDL > or = 40mg/dL- Desirable HDL >60 mg/dL - Negative Risk Performed By: #### Abhishek GERONIMO, 1744-2, 1919-11, BMP, 16440-2 #### [facility] ([id number]) [address], [address] [place] [address] Cholesterol in LDL [Mass/Vol] 68 mg/dL Normal <130 [facility] Comment on above: Result Comment: LDL <100 mg/dL - Desirable LDL >160 mg/dL - High Risk Performed By: #### Abhishek BCA, 1744-2, 1919-11, BMP, 29514-7 #### [facility] ([id number]) [address] [place] [address] Cholesterol in VLDL [Mass/Vol] 30 mg/dL Normal 0-30 [facility] Comment on above: Performed By: ###Sebastián Weiss BCA, 1744-2, 1919-8, BMP, 99490-4 #### [facility] ([id number]) [address], [address] [place] [address] CHOLESTEROL:HDL 2.5 Normal 1.0-5.0 [facility] Comment on above: Performed By: #### C BCA, 1744-2, 1919-8, BMP, 61778-8 #### [facility] ([id number]) [address] [facility], [address] [place] [address] Triglyceride [Mass/Vol] 152 mg/dL High 27-150 [facility] Comment on above: Performed By: #### C BCA, 1744-2, 1919-11, BMP, 45315-7 #### [facility] ([id number]) [address] [facility], [address] [place] [address] URINALYSISon 04-16-2023 Bilirubin Ql (U) Negative Normal NEG [facility] BLOOD/HGB Negative Normal NEG [facility] Color (U) YELLOW Normal YELLOW [facility] Glucose Ql (U) Negative Normal NEG [facility] Ketones Ql (U) Negative Normal NEG [facility] Leukocyte esterase Test strip Ql (U) Negative Normal NEG [facility] Nitrite Ql (U) Negative Normal NEG [facility] pH (U) 6.5 [pH] Normal 5.0-8.5 [facility] Protein Ql (U) Negative Normal NEG [facility] Specific gravity (U) [Rel density] 1.006 Normal 1.003-1.035 [facility] TURBIDITY CLEAR Normal CLEAR [facility] Urobilinogen (U) [Mass/Vol] mg/dL Normal <1.1 [facility] URINE CULTUREon 04-16-2023 Bacteria identified Cx Nom (U) CULTURE RESULTS 10-50,000 ORGANISMS/mL NORMAL UROGENITAL GRISEL Normal [facility] Comment on above: Performed By: #### 6 30-4 #### [facility] ([id number]) [address] [place] [address] Urinalysison 04-16-2023 Bilirubin Ql (U) Negative Negative^Ne g ative [facility] Color (U) YELLOW YELLOW^YELLO W [facility] Glucose (U) [Mass/Vol] Negative Negat светлана^Neg ative mg/dL [facility] Hemoglobin Auto test strip Ql (U) Negative Negative^Neg ative [facility] Ketones (U) [Mass/Vol] Negative Negat светлана^Neg ative mg/dL [facility] Leukocyte esterase Auto test strip Ql (U) Negative Negative^Neg ative [facility] Nitrite Auto test strip Ql (U) Negative Negative^Neg ative [facility] pH (U) 6.5 [pH] 5.0 - 8.5 [facility] Protein (U) [Mass/Vol] Negative Negat светлана^Neg ative mg/dL [facility] Specific gravity Refractometry automated (U) [Rel density] 1.006 1.003 - 1.035 [facility] Turbidity Ql (U) CLEAR CLEAR^CLEAR [facility] Urobilinogen Qn (U) NINF [facility] XR CHEST 2 VWSon 04-16-2023 XR CHEST 2 VWS XR CHEST 2 VWS HISTORY: A 72 old female with the history of the preoperative examination for the left knee surgery. There is also a history of COPD and increase urinary frequency. EXAM/TECHNIQUE: CHEST: PA and lateral views COMPARISON: Comparison is made with prior chest examination of 06/01/2019. FINDINGS: Both lungs and costophrenic angles are clear. There is no evidence of pulmonary infiltrate or acute pulmonary pathology. The cardiac silhouette is within normal limits. The trachea is in midline. The mediastinum is otherwise unremarkable. The hemidiaphragms are normal in position. The bony rib cage is intact. IMPRESSION: No evidence of pulmonary infiltrate, acute pulmonary pathology or significant interval change. Finalized by Carlos Bowden MD on 04/16/2023 10:02 AM Normal [facility] XR Chest PA and Lateralon HISTORY: A 72 old female with the history of the preoperative examination for the left knee surgery. There is also a history of COPD and increase urinary frequency. EXAM/TECHNIQUE: CHEST: PA and lateral views COMPARISON: Comparison is made with prior chest examination of 06/01/2019. FINDINGS: Both lungs and costophrenic angles are clear. There is no evidence of pulmonary infiltrate or acute pulmonary pathology. The cardiac silhouette is within normal limits. The trachea is in midline. The mediastinum is otherwise unremarkable. The hemidiaphragms are normal in position. The bony rib cage is intact. IMPRESSION: No evidence of pulmonary infiltrate, acute pulmonary pathology or significant interval change. Finalized by Carlos Bowdne MD on 04/16/2023 10:02 AM [facility] Carlos Bowden MD - 04/16/2023 HISTORY: A 72 old female with the history of the preoperative examination for the left knee surgery. There is also a history of COPD and increase urinary frequency. EXAM/TECHNIQUE: CHEST: PA and lateral views COMPARISON: Comparison is made with prior chest examination of 06/01/2019. FINDINGS: Both lungs and costophrenic angles are clear. There is no evidence of pulmonary infiltrate or acute pulmonary pathology. The cardiac silhouette is within normal limits. The trachea is in midline. The mediastinum is otherwise unremarkable. The hemidiaphragms are normal in position. The bony rib cage is intact. IMPRESSION: No evidence of pulmonary infiltrate, acute pulmonary pathology or significant interval change. Finalized by Carlos Bowden MD on 04/16/2023 10:02 AM [facility] Study observation (narrative) [facility] XR Chest PA and LateralOrder ed By: Carlos Bowden on 04-16-2023 [facility] Work Phone: XR Femur and Tibia Views for leg lengthon 04-16-2023 Allan Gonsales M D - 04/16/2023 XR BONE LENGTH STUDY HISTORY: Preoperative evaluation. Leg length discrepancy. COMPARISON: None FINDINGS: Measurements explicitly not requested by ordering surgeon. No acute fracture, dislocation, or destructive osseous lesion within the [id number]. Orthopedic hardware of the right knee and ankle without evidence of failure or complication. Degenerative changes of the left knee and ankle. IMPRESSION: No evidence of acute osseous abnormality or orthopedic hardware failure/complication. Approved by Resident Aaron King MD on 04/16/2023 2:38 PM IAllan MD have personally reviewed the image(s) and agree with and/or edited the report Finalized by Allan Gonsales MD on 04/16/2023 2:41 PM [facility] Study observation (narrative) [facility] XR Femur and Tibia Views for leg lengthOrdered By: Allan Gonsales on 04-16-2023 [facility] Work Phone: DEXA BONE DENSITY AXIAL SKEL ETONon 01-14-2023 DEXA BONE DENSITY AXIAL SKELETON EXAMINATION: BONE DENSITOMETRY 01/14/2023 9:25 am TECHNIQUE: A bone density dual x-ray absorptiometry (DXA) scan was performed of the lumbar spine and left hip on a [employer] system. COMPARISON: 01/10/2017 HISTORY: ORDERING SYSTEM PROVIDED HISTORY: Menopause TECHNOLOGIST PROVIDED HISTORY: Menopause Gender: F Age: 72 y/o FINDINGS: LUMBAR SPINE: L1-L2 BMD: 0.957 g/cm2 T-score: -1.7 Z-score: -1.1 There has been no statistically significant change in the bone mineral density of the lumbar spine since the prior exam date listed above. LEFT TOTAL HIP: BMD: 0.874 g/cm2 T-score: -1.1 Z-score: -0.2 LEFT FEMORAL NECK: BMD: 0.771 g/cm2 T-score: -1.9 Z-score: -0.8 There has been a DECREASE of 8.1% in the bone mineral density of the total hip since the prior exam date listed above. FRAX: 10-year fracture risk is performed using the [employer] FRAX calculator based on patient-reported risk factors. Major osteoporotic fracture: 10.9% Hip fracture: 2.4% Other situations known to alter the reliability of the FRAX score should be considered when making treatment decisions, including chronic glucocorticoid use and past treatments. Further guidance on treatment can be found at the National Osteoporosis Foundation's website bonesource.org. IMPRESSION: Osteopenia by WHO criteria. RECOMMENDATIONS: 1. All patients should optimize their calcium and vitamin D intake. 2. Consider FDA-approved medical therapies in postmenopausal women and men aged 50 years and older, based on the following: - A hip or vertebral (clinical or morphometric) fracture - T-score less than or equal to -2.5 at the femoral neck or spine after appropriate evaluation to exclude secondary causes - Low bone density (T-score between -1.0 and -2.5 at the femoral neck or spine) and a 10-year probability of a hip fracture greater than or equal to 3% or a 10-year probability of a major osteoporosis-related fracture greater than or equal to 20% based on FRAX calculation. - Clinician judgment and/or patient preferences may indicate treatment for people with 10-year fracture probabilities above or below these levels - Further guidance on treatment can be found at the National Osteoporosis Foundation's website bonesource.org. 3. Patients with diagnosis of osteoporosis or at high risk for fracture should have regular bone mineral density tests. For patients eligible for Medicare, routine testing is allowed once every 2 years. The testing frequency can be increased to one year for patients who have rapidly progressing disease, those who are receiving or discontinuing medical therapy to restore bone mass or have additional risk factors. Template code: [id number] Interpreted by: Christopher Jean DO Signed by: Crhistopher Jean DO 01/14/23 Final result Normal [facility] [place] DIGITAL SCREEN TIARATia Thierry 01-14-2023 [facility] [place] DIGITAL SCREEN BILATERAL EXAMINATION: SCREENING DIGITAL BILATERAL MAMMOGRAM WITH TOMOSYNTHESIS, 01/14/2023 TECHNIQUE: Screening mammography was performed with tomosynthesis including MLO and CC views of the bilateral breasts. Computer aided detection was used for the interpretation of this exam. COMPARISON: December 12, 2021 and December 11, 2020 HISTORY: Screening. FINDINGS: Breasts are almost entirely fatty. There is no dominant mass, architectural distortion or concerning grouping of microcalcification in either breast. Benign-appearing calcifications are stable. IMPRESSION: Stable exam. No mammographic evidence of malignancy BIRADS: BIRADS - CATEGORY 2 Benign Findings. Normal interval follow-up is recommended in 12 months. OVERALL ASSESSMENT - BENIGN A letter of notification will be sent to the patient regarding the results. The [employer] recommends annual mammograms for women 40 years and older. Interpreted by: Christopher Jean DO Signed by: Christopher Jean DO 01/14/23 Final result Normal [facility] ALT-SGPTon 11-05-2022 ALT [Catalytic activity/Vol] 19 U/L Normal 5-40 [facility] AST-SGOTon 11-05-2022 AST-SGOT 19 U/L Normal 9-40 [facility] BASIC METABOLIC PANEL WITH G FRon 11-05-2022 Anion gap [Moles/Vol] 13.0 mmol/L Normal 7.0-16.0 [facility] Calcium [Mass/Vol] 9.3 mg/dL Normal 8.5-10.5 [facility] Chloride [Moles/Vol] 100 mmol/L Normal 95-107 [facility] CO2 [Moles/Vol] 25 mmol/L Normal 19-31 [facility] Creatinine [Mass/Vol] 0.77 mg/dL Normal 0.60-1.30 [facility] GFR/1.73 sq M.predicted among non-blacks MDRD (S/P/Bld) [Vol rate/Area] 81 mL/min/{1.73_m2} Normal >60 [facility] Glucose [Mass/Vol] 99 mg/dL Normal 70-99 [facility] Potassium [Moles/Vol] 4.5 mmol/L Normal 3.5-5.4 [facility] Sodium [Moles/Vol] 138 mmol/L Normal 133-146 [facility] Urea nitrogen [Mass/Vol] 20 mg/dL Normal 8-23 [facility] CBC NO DIFFon 11-05-2022 Erythrocyte distribution width (RBC) [Ratio] 12.5 % Normal 11.5-15.0 [facility] Hematocrit (Bld) [Volume fraction] 41.7 % Normal 34.0-45.0 [facility] Hemoglobin (Bld) [Mass/Vol] 14.2 g/dL Normal 11.5-15.5 [facility] MCH (RBC) [Entitic mass] 31.7 pg Normal 25.0-33.0 [facility] MCHC (RBC) [Mass/Vol] 34.1 g/dL Normal 31.0-36.0 [facility] MCV (RBC) [Entitic vol] 93.1 fL Normal 80.0-99.0 [facility] Platelet mean volume (Bld) [Entitic vol] 10.2 fL Normal 9.3-13.0 [facility] Platelets (Bld) [#/Vol] 230 10*3/uL Normal 130-400 [facility] RBC (Bld) [#/Vol] 4.48 10*6/uL Normal 3.80-5.40 [facility] WBC (Bld) [#/Vol] 6.6 10*3/uL Normal 3.5-11.0 [facility] HEMOGLOBIN A1Con 11-05-2022 Glucose [Mass/Vol] 120 mg/dL High <117 [facility] HbA1c (Bld) [Mass fraction] 5.8 % High 4.2-5.6 [facility] Comment on above: Result Comment: [employer] GUIDELINES FOR HGB A1C: PREDIABETES/INCREASED RISK . . . . . . . 5.7-6.4% DIAGNOSIS OF DIABETES . . . . . . . . . >=6.5% WITH CONFIRMATION OR APPROPRIATE SYMPTOMS NOTE: ASSAY MAY BE AFFECTED BY HEMOGLOBINOPATHIES (SICKLE CELL ANEMIA, S-C DISEASE, OTHERS) OR ARTIFICIALLY LOWERED BY DECREASED RED CELL SURVIVAL (HEMOLYTIC ANEMIAS, BLOOD LOSS, ETC.). CONSIDER ALTERNATE TESTING OR LABORATORY CONSULTATION. LIPID PANEL (INCLUDES CALCUL ATED LDL)on 11-05-2022 Cholesterol [Mass/Vol] 163 mg/dL Normal <200 [facility] Cholesterol in LDL/Cholesterol in HDL [Mass ratio] 1.0 {ratio} Normal <3.22 [facility] Cholesterol.total/Chol esterol in HDL [Mass ratio] 2.4 {ratio} Normal <4.44 [facility] HDL-CHOL 67 mg/dL Normal >39 [facility] LDL-CHOL, CALCULATED 66 mg/dL Normal <100 [facility] Triglyceride [Mass/Vol] 148 mg/dL Normal <150 [facility] VLDL-CHOL, CALCULATED 30 mg/dL High <30 [facility] VITAMIN B12on 11-05-2022 Cobalamin (Vitamin B12) [Mass/Vol] 559 pg/mL Normal 200-950 [facility] VITAMIN D, 25 HYDROXYon 10-19 VITAMIN D, 25 HYDROXY 32 NG/ML Normal SEE BELOW [facility] Comment on above: Result Comment: NOTE: 25-HYDROXYVITAMIN D ASSAY INCLUDES 25-HYDROXYVITAMIN D2 AND D3. METHODOLOGY IS CHEMILUMINESCENT IMMUNOASSAY. INTERPRETIVE RANGES PEDIATRIC (<17 YEARS) . . . . . . . . . . . NG/ML 20-100 ADULT: INSUFFICIENT . . . . . . . . . . . . . . NG/ML <20 SUBOPTIMAL . . . . . . . . . . . . . . . NG/ML 20-29 OPTIMAL . . . . . . . . . . . . . . . . . NG/ML 30-100 [facility] [address] [place] [address] CLIA No. [id number] CAP Accreditation No. 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 H. pylori Antigenon 11-03-19 H. pylori Antigen Specimen Description .FECES Direct Exam NEGATIVE Report Status FINAL 11/02/2022 Normal [facility] Comment on above: Performed By: #### F HPY #### [id number] [place], [place] [id number] Hospital Television Rental Clerk: Naren Heck MD [facility] [address] [place] [address] [employer] Rental Clerk: Mary Burgess MD MRI Brain w/ + w/o Contrasto n 09-16-2022 MRI Brain w/ + w/o Contrast EXAM: MRI of the brain without and with IV contrast utilizing 20 mL of MultiHance IV gadolinium contrast. Orbit MRI with IV contrast. REASON FOR EXAM: Migraine with aura, not intractable, with status migrainosus COMPARISON: None FINDINGS: BRAIN: No intracranial masses or abnormal enhancement. No abnormal restricted diffusion or evidence of evolving infarct. No evidence of intracranial hemorrhage. No hydrocephalus. Focal thinning of the midline occipital calvarium may be congenital, alternatively in this region the CSF is somewhat prominent and a small arachnoid cyst versus prior postoperative change are considerations. Small amount of fluid in the mastoid air cells bilaterally. Paranasal sinuses are clear. Paranasal sinuses and mastoid air cells are clear. ORBITS: No orbital mass. No orbital inflammatory changes. No orbital fluid collection. No orbital fractures. Both globes are grossly intact. Symmetric orbital musculature. Symmetric optic nerves without abnormal enhancement. Remainder unremarkable. IMPRESSION: 1. Normal appearance of the brain. 2. Normal orbits MRI. 3. Focal thinning of the midline occipital calvarium may be congenital, alternatively in this region the CSF signal is somewhat prominent and a small arachnoid cyst causing the calvarial thinning or prior postoperative change are alternative considerations. Final Dictated by: Mahesh Turk MD Dictated DT/TM: 09/16/2022 6:50 am Signed by: Mahesh Turk MD Signed (Electronic Signature): 09/16/2022 7:01 am (If Report Is Signed, Electronically Signed in Other Vendor System) Normal [facility] MRI Orbits w/ + w/o Contrast on 09-16-2022 MRI Orbits w/ + w/o Contrast EXAM: MRI of the brain without and with IV contrast utilizing 20 mL of MultiHance IV gadolinium contrast. Orbit MRI with IV contrast. REASON FOR EXAM: Migraine with aura, not intractable, with status migrainosus COMPARISON: None FINDINGS: BRAIN: No intracranial masses or abnormal enhancement. No abnormal restricted diffusion or evidence of evolving infarct. No evidence of intracranial hemorrhage. No hydrocephalus. Focal thinning of the midline occipital calvarium may be congenital, alternatively in this region the CSF is somewhat prominent and a small arachnoid cyst versus prior postoperative change are considerations. Small amount of fluid in the mastoid air cells bilaterally. Paranasal sinuses are clear. Paranasal sinuses and mastoid air cells are clear. ORBITS: No orbital mass. No orbital inflammatory changes. No orbital fluid collection. No orbital fractures. Both globes are grossly intact. Symmetric orbital musculature. Symmetric optic nerves without abnormal enhancement. Remainder unremarkable. IMPRESSION: 1. Normal appearance of the brain. 2. Normal orbits MRI. 3. Focal thinning of the midline occipital calvarium may be congenital, alternatively in this region the CSF signal is somewhat prominent and a small arachnoid cyst causing the calvarial thinning or prior postoperative change are alternative considerations. Final Dictated by: Mahesh Turk MD Dictated DT/TM: 09/16/2022 6:50 am Signed by: Mahesh Turk MD Signed (Electronic Signature): 09/16/2022 7:01 am (If Report Is Signed, Electronically Signed in Other Vendor System) Normal [facility] ALT-SGPTon 04-09-2022 ALT [Catalytic activity/Vol] 26 U/L Normal 5-40 [facility] AST-SGOTon 04-09-2022 AST-SGOT 25 U/L Normal 9-40 [facility] BASIC METABOLIC PANEL WITH G FRon 04-09-2022 Anion gap [Moles/Vol] 9.0 mmol/L Normal 7.0-16.0 [facility] Comment on above: Result Comment: Please note new reference range effective 2021 Calcium [Mass/Vol] 9.4 mg/dL Normal 8.5-10.5 [facility] Chloride [Moles/Vol] 101 mmol/L Normal 95-107 [facility] [employer] CO2 [Moles/Vol] 29 mmol/L Normal 19-31 [facility] Creatinine [Mass/Vol] 0.73 mg/dL Normal 0.60-1.30 [facility] GFR/1.73 sq M.predicted among non-blacks MDRD (S/P/Bld) [Vol rate/Area] 87 mL/min/{1.73_m2} Normal >60 [facility] Glucose [Mass/Vol] 110 mg/dL High 70-99 [facility] Potassium [Moles/Vol] 4.3 mmol/L Normal 3.5-5.4 [facility] Sodium [Moles/Vol] 139 mmol/L Normal 133-146 [facility] Urea nitrogen [Mass/Vol] 18 mg/dL Normal 8-23 [facility] CBC NO DIFFon 04-09-2022 Erythrocyte distribution width (RBC) [Ratio] 12.4 % Normal 11.5-15.0 [facility] Hematocrit (Bld) [Volume fraction] 41.5 % Normal 34.0-45.0 [facility] Hemoglobin (Bld) [Mass/Vol] 13.8 g/dL Normal 11.5-15.5 [facility] MCH (RBC) [Entitic mass] 30.9 pg Normal 25.0-33.0 [facility] MCHC (RBC) [Mass/Vol] 33.3 g/dL Normal 31.0-36.0 [employer] MCV (RBC) [Entitic vol] 93.0 fL Normal 80.0-99.0 [facility] Platelet mean volume (Bld) [Entitic vol] 10.5 fL Normal 9.3-13.0 [facility] Platelets (Bld) [#/Vol] 226 10*3/uL Normal 130-400 [facility] RBC (Bld) [#/Vol] 4.46 10*6/uL Normal 3.80-5.40 [facility] WBC (Bld) [#/Vol] 6.4 10*3/uL Normal 3.5-11.0 [facility] HEMOGLOBIN A1Con 04-09-2022 Glucose [Mass/Vol] 123 mg/dL High <117 [facility] Comment on above: Result Comment: [facility] [address] [place] [address] CLIA No. [id number] CAP Accreditation No. [id number] Stranding Machine Operator Helper: Keke Islas M.D. HbA1c (Bld) [Mass fraction] 5.9 % High 4.2-5.6 [facility] Comment on above: Result Comment: [employer] GUIDELINES FOR HGB A1C: PREDIABETES/INCREASED RISK . . . . . . . 5.7-6.4% DIAGNOSIS OF DIABETES . . . . . . . . . >=6.5% WITH CONFIRMATION OR APPROPRIATE SYMPTOMS NOTE: ASSAY MAY BE AFFECTED BY HEMOGLOBINOPATHIES (SICKLE CELL ANEMIA, S-C DISEASE, OTHERS) OR ARTIFICIALLY LOWERED BY DECREASED RED CELL SURVIVAL (HEMOLYTIC ANEMIAS, BLOOD LOSS, ETC.). CONSIDER ALTERNATE TESTING OR LABORATORY CONSULTATION. LIPID PANEL (INCLUDES CALCUL ATED LDL)on 04-09-2022 Cholesterol [Mass/Vol] 162 mg/dL Normal <200 [facility] Cholesterol in LDL/Cholesterol in HDL [Mass ratio] 1.0 {ratio} Normal <3.22 [facility] Cholesterol.total/Chol esterol in HDL [Mass ratio] 2.3 {ratio} Normal <4.44 [facility] HDL-CHOL 71 mg/dL Normal >39 [facility] LDL-CHOL, CALCULATED 73 mg/dL Normal <100 [facility] Triglyceride [Mass/Vol] 92 mg/dL Normal <150 [facility] VLDL-CHOL, CALCULATED 18 mg/dL Normal <30 [facility] KENYA DIGITAL SCREEN W CAD TIARA ATERALon 06-09-2019 No mammographic evidence for malignancy. BIRADS: BIRADS - CATEGORY 1 Negative, no evidence of malignancy. Normal interval follow-up is recommended in 12 months. OVERALL ASSESSMENT - NEGATIVE A letter of notification will be sent to the patient regarding the results. [employer] recommends annual mammograms for women 40 years and older. [facility] [place] EXAMINATION: BILATERAL DIGITAL SCREENING MAMMOGRAM, 06/09/2019 8:16 am TECHNIQUE: CC and MLO views of the left and right breasts were obtained. Computer aided detection was utilized in the interpretation of this exam. COMPARISON: 01/10/2017 and 05/15/2018 HISTORY: Screening. FINDINGS: The breasts are almost entirely fatty. There is no new dominant mass, suspicious microcalcification, or area of architectural distortion. No abnormality is identified on the tomosynthesis images. [facility] [place] Glenn, pn Incoming Radiant Results From [employer] - 06/09/2019 9:56 AM EST EXAMINATION: BILATERAL DIGITAL SCREENING MAMMOGRAM, 06/09/2019 8:16 am TECHNIQUE: CC and MLO views of the left and right breasts were obtained. Computer aided detection was utilized in the interpretation of this exam. COMPARISON: 01/10/2017 and 05/15/2018 HISTORY: Screening. FINDINGS: The breasts are almost entirely fatty. There is no new dominant mass, suspicious microcalcification, or area of architectural distortion. No abnormality is identified on the tomosynthesis images. IMPRESSION: No mammographic evidence for malignancy. BIRADS: BIRADS - CATEGORY 1 Negative, no evidence of malignancy. Normal interval follow-up is recommended in 12 months. OVERALL ASSESSMENT - NEGATIVE A letter of notification will be sent to the patient regarding the results. [employer] [place] [employer] recommends annual mammograms for women 40 years and older. [facility] [place] Urinalysis With MicroscopicO rdered By: Shanice Niño on 04-27-2019 - [email or web address] Phone: Amorphous, UA NOT REPORTED None [employer] Work Phone: Bacteria, UA 1+ Abnormal None [email or web address] Phone: Bilirubin Urine Negative NEGATIVE [employer] Work Phone: Casts UA NOT REPORTED /LPF [email or web address] Phone: Color, UA YELLOW YELLOW [facility] Work Phone: Crystals UA NOT REPORTED None /HPF [facility] Work Phone: Epithelial Cells UA 2 TO 5 [facility] Work Phone: Glucose, Ur Negative NEGATIVE [facility] Work Phone: Interpretation and review of laboratory results Abnormal [employer] Work Phone: Ketones Ql (U) Negative NEGATIVE [employer] Work Phone: Leukocyte esterase Test strip Ql (U) Negative NEGATIVE [employer] Work Phone: Mucus, UA NOT REPORTED None [facility] Work Phone: Nitrite, Urine Negative NEGATIVE [employer] Work Phone: Other Observations UA NOT REPORTED NOT REQ. [facility] Work Phone: pH, UA 6.0 [facility] Work Phone: Protein, UA Negative NEGATIVE [employer] Work Phone: RBC, UA None [facility] Work Phone: Renal Epithelial, Urine NOT REPORTED 0 /HPF [facility] Work Phone: Specific [place], UA 1.020 [employer] Work Phone: Trichomonas, UA NOT REPORTED None [facility] Work Phone: Turbidity UA CLEAR CLEAR [facility] Work Phone: Urinalysis Comments NOT REPORTED [facility] [employer] Work Phone: Urine Hgb Negative NEGATIVE [facility] Work Phone: Urobilinogen, Urine Normal Normal [facility] Work Phone: WBC, UA 2 TO 5 [facility] Work Phone: Yeast, UA NOT REPORTED None [employer] Work Phone: Vital Signs Date Time Vital Sign Value Performing Clinician Jordan henderson 07-30-2023 14:44-0400 Body height 152.4 cm MD Elsie Jeffrey Work Phone: [facility] 07-30-2023 14:44-0400 Body weight 94.34 kg MD Elsie Jeffrey Work Phone: [facility] 04-16-2023 09:13-0500 Body height 152.4 [facility] 04-16-2023 09:13-0500 Body mass index (BMI) [Ratio] 41.79 kg/m2 [facility] 04-16-2023 09:13-0500 Body weight 97.07 kg Pmh 2 [employer] 03-08-2021 11:15-0500 Body height 152.4 cm Mary Francis Other [employer] Other 03-08-2021 11:15-0500 Body mass index (BMI) [Ratio] 40.62 kg/m2 Mary Duglasarnaud Other [employer] Other 03-08-2021 11:15-0500 Body weight 94.35 kg Mary Duglasarnaud Other [employer] Other 01-18-2021 12:00-0400 Body height 152.4 cm Mary Francis Other [employer] Other 01-18-2021 12:00-0400 Body mass index (BMI) [Ratio] 41.2 kg/m2 Mary Duglaskes Other [employer] Other 01-18-2021 12:00-0400 Body weight 95.71 kg Mary Francis Other [employer] Other Encounters Encounter Date Encounter Type Care Provider Facility Start: 08-05-2023 End: 08-05-2023 ambulatory DAPHNEHEIDY CONWAY Not Available Start: 08-04-2023 End: 08-04-2023 ambulatory FLAVIO SINGLETON Not Available Start: 07-30-2023 End: 07-30-2023 ambulatory Elsie Jeffrey Facility:[facility] Start: 07-30-2023 End: 07-30-2023 ambulatory MD Elsie Jeffrey Work Phone: [facility] Work Phone: Start: 07-30-2023 End: 07-30-2023 Patient encounter procedure MD Elsie Jeffrey Work Phone: [facility] [place] Work Phone: Start: 07-14-2023 End: 07-15-2023 ambulatory aJmes Quigley MD Facility[facility] Start: 06-23-2023 End: 06-24-2023 ambulatory FLAVIO SINGLETON Not Available Start: 06-02-2023 Bamboo flowsheet Flavio Singleton [employer] Work Phone: [facility] Start: 06-02-2023 Bamboo flowsheet Flavio Singleton [employer]NAGER [employer] Work Phone: [facility] Start: 06-02-2023 End: 06-02-2023 ambulatory FLAVIO SINGLETON Not Available Start: 06-02-2023 End: 06-02-2023 Postop follow up visit related to original px Flavio Singleton [employer] Work Phone: [facility] Comment on above: Status post total le ft knee replacement (Primary Dx) Start: 05-27-2023 End: 05-27-2023 ambulatory FLAVIO SINGLETON Not Available Start: 05-22-2023 End: 05-22-2023 ambulatory FLAVIO SINGLETON Not Available Start: 05-22-2023 End: 05-22-2023 Postop follow up visit related to original px Flavio Singleton [employer] Work Phone: [facility] Comment on above: Status post total le ft knee replacement (Primary Dx) Start: 05-15-2023 End: 05-15-2023 ambulatory FLAVIO Jose ARELI Not Available Start: 05-15-2023 End: 05-15-2023 ambulatory MARY Arreola SAMANTHA [facility] Start: 05-13-2023 End: 05-15-2023 ambulatory [facility] Start: 05-13-2023 End: 05-14-2023 ambulatory [facility] Start: 05-08-2023 End: 05-09-2023 ambulatory [facility] Start: 05-01-2023 End: 05-04-2023 ambulatory MCMECHEN Steve [facility] Start: 04-30-2023 End: 05-03-2023 ambulatory [facility] Start: 04-30-2023 Encounter for preprocedural cardiovascular examination [facility] Start: 04-28-2023 End: 04-28-2023 ambulatory JENNIFER WHIATKER Not Available Start: 04-16-2023 End: 04-17-2023 ambulatory [facility] Start: 04-16-2023 Encounter for other preprocedural examination [facility] Start: 04-16-2023 End: 04-16-2023 Patient encounter procedure [facility] Pre-Admission Testing 2 [facility] - Pre Admit Comment on above: Preop examination (P rimary Dx); Hypertension, unspecified type; Chronic obstructive pulmonary disease, unspecified COPD type ([facility]); Urinary frequency; Osteoarthritis of left knee, unspecified osteoarthritis type Start: 04-16-2023 End: 04-16-2023 Preprocedural examination done [facility] 2 [facility] Start: 04-01-2023 End: 04-01-2023 ambulatory DAPHNE CONWAY Not Available Start: 01-14-2023 End: 01-17-2023 ambulatory SHANICE NIÑO [facility] Start: 12-11-2022 End: 12-12-2022 ambulatory RENAN Isidra DYLAN [facility] Start: 11-01-2022 End: 11-02-2022 ambulatory RENAN R DYLAN [facility] Start: 09-15-2022 End: 09-16-2022 ambulatory Elsie Jeffrey MD Facility:[facility] Start: 06-19-2022 End: 06-20-[address] MARY CHRISTIAN Facility:[facility] Start: 10-31-2021 End: 11-01-2021 ambulatory KAVITHA AVALOSDAHIANA Facility:[facility] Start: 10-30-2021 End: 10-30-2021 Subsequent hospital visit by physician Elsie Jeffrey MD Work Phone: [facility] Laboratory Comment on above: Nevus Start: 06-11-2021 End: 06-11-2021 ambulatory Mary Francis Other [employer] Other Start: 06-11-2021 Telephone encounter Mary Francis [facility] Start: 05-07-2021 End: 05-07-2021 ambulatory Mary Francis Other [employer] Other Start: 05-07-2021 Telephone encounter Mary Francis [facility] Start: 03-08-2021 End: 03-08-2021 ambulatory Mary Francis Other [employer] Other Start: 03-08-2021 Office outpatient vi sit 15 minutes Mary Francis [facility] Start: 01-18-2021 Office outpatient vi sit 25 minutes Mary Francis [facility] Start: 12-11-2020 End: 12-13-2020 Subsequent hospital visit by physician [facility] Mammography Comment on above: Screening mammogram, encounter for Start: 06-09-2019 End: 06-11-2019 Subsequent hospital visit by physician [facility] Mammography Comment on above: Visit for screening mammogram Start: 04-27-2019 End: 04-27-2019 Subsequent hospital visit by physician Elsie Jeffrey MD Work Phone: [facility] Laboratory Comment on above: Dysuria Start: 04-26-2019 End: 04-26-2019 Subsequent hospital visit by physician Elsie Jeffrey MD Work Phone: [facility] Laboratory Procedures Date Procedure Procedure Detail Performing Clinician Start: 07-30-2023 XR pre/post mri xray MD Elsie Lorenz s Work Phone: Start: 07-30-2023 MR lumbar spine wo con MD Elsie ortiz Work Phone: Start: 04-28-2023 H/O: artificial joint History of right ankle joint replacement Flavio Singleton [employer] Work Phone: Start: 01-14-2023 Mammography Flavio Singleton NP Work Phone: Start: 06-09-2019 Screening digital breast tomosynthesis bi Elsie Jeffrey Work Phone: Start: 04-27-2019 Urnls dip stick/tablet reagent auto microscopy Shanice Niño PROOFREADER - CNM Work Phone: Start: 07-01-2012 [facility] Elsie Jeffrey MD Work Phone: Plan of Treatment Date Care Activity Detail Author Start: 04-16-2024 Adult BMI Screening Adult BMI Screen ing [facility] Start: 04-16-2024 Tobacco Screening Tobacco Screening [facility] Start: 01-15-2024 Screening for malign ant neoplasm of breast Mammogram [facility] Start: 01-09-2024 DTaP,Tdap and Td Vaccines (2 - Td or Tdap) DTaP,Tdap and Td Vaccines (2 - Td or Tdap) [facility] Start: 01-09-2024 DTaP/Tdap/Td vaccine (2 - Td or Tdap) DTaP/Tdap/Td vaccine (2 - Td or Tdap) [facility] Start: 01-09-2024 DTaP/Tdap/Td vaccine (2 - Td) DTaP/Tdap/Td vaccine (2 - Td) [facility] Work Phone: Start: 08-19-2023 End: 08-19-2023 Patient encounter procedure 08/19/2023 8:35 AM EDT Office Visit [facility] [address] [place] [phone] Paola Brower MD [address] [place] [address] [facility] Start: 08-05-2023 End: 08-05-2023 Patient encounter procedure 08/05/2023 8:45 AM EDT Procedure Visit [facility] [address] [place] [phone] Daphne Conway, DPM [address] [place], [place] [phone] [facility] Start: 06-23-2023 End: 06-23-2023 Patient encounter procedure 06/23/2023 2:00 PM EST Office Visit [facility] [address] [place] [phone] Flavio Singleton, MANAGER [employer] [address] [place] [address] [facility] Start: 06-02-2023 End: 06-02-2023 Patient encounter procedure 06/02/2023 9:45 AM EST Office Visit [facility] [address] [place] [phone] Flavio Singleton, MANAGER [employer]ITY [address] [facility] [place] [address] Arrived [facility] Comment on above: Arrived Start: 05-27-2023 End: 05-27-2023 Patient encounter procedure 05/27/2023 9:30 AM EST Office Visit [facility] [address] [place] [phone] Jennifer Whitaker, WALTER [address] [facility] [address] [place] [address] [facility] Start: 05-13-2023 End: 05-13-2023 Admission to same day surgery center 05/13/2023 7:45 AM EST - 05/13/2023 11:00 AM EST Surgery [facility] [address] [place] [address] Freddy Badilol Jr., DO [address] [place] [address] REPLACEMENT TOTAL JOINT KNEE [46334 (CPT )] [facility] Comment on above: REPLACEMENT TOTAL JASPER INT KNEE [24764 (CPT )] Start: 05-13-2023 End: 05-13-2023 Arthrp kne condyle&platu medial&lat compartments REPLACEMENT TOTAL JOINT KNEE left knee degenerative joint disease 05/13/2023 7:45 AM EST [facility] Start: 05-13-2023 Subsequent hospital visit by physician 05/13/2023 7:45 AM EST Hospital Encounter [facility] [address] [facility] [phone] Freddy Badillo Jr., DO [address] [facility] [address] [place] [address] [facility] Start: 05-05-2023 End: 04-15-2024 Crossmatch RBC Crossmatch RBC Blood Bank Routine Preop examination Hypertension, unspecified type Chronic obstructive pulmonary disease, unspecified COPD type (CMS-HCC) Urinary frequency Expected: 05/05/2023, Expires: 04/15/2024 [facility] Comment on above: Expected: 05/05/2023 , Expires: 04/15/2024 Start: 05-05-2023 End: 04-15-2024 Type and screen(includes indirect lisa) Type and screen(includes indirect lisa) Blood Bank Routine Preop examination Hypertension, unspecified type Chronic obstructive pulmonary disease, unspecified COPD type (CMS-HCC) Urinary frequency Expected: 05/05/2023, Expires: 04/15/2024 [facility] Work Phone: Comment on above: Expected: 05/05/2023 , Expires: 04/15/2024 Start: 12-20-2022 COVID-19 Vaccine ( season) COVID-19 Vaccine ( season) [facility] Start: 12-11-2022 Screening for malign ant neoplasm of breast Breast cancer screen [facility] Start: 07-01-2022 Screening for malign ant neoplasm of colon [facility] Start: 04-19-2022 End: 04-19-2022 Patient encounter procedure 04/19/2022 Office Visit Internal Medicine Elsie Jeffrey MD [address] [phone] [facility] Start: 04-17-2022 Annual Wellness Visi t (AWV) Annual Wellness Visit (AWV) [facility] Start: 04-16-2022 Depression Screen Depression Screen [facility] Start: 04-09-2022 Hemoglobin A1c measurement A1C test (Diabetic or Prediabetic) [facility] Start: 04-09-2022 Lipid panel Lipids [facility] Start: 12-20-2021 Influenza vaccination Flu vaccine (# 1) [facility] Start: 11-09-2021 End: 11-09-2021 Patient encounter procedure 11/09/2021 Office Visit Internal Medicine Elsie Jeffrey MD [address] [place], [place] [phone] [facility] Start: 09-26-2021 [facility] Work [facility]: Start: 09-26-2021 Hemoglobin A1c measurement A1C test (Diabetic or Prediabetic) [facility] Work Phone: Start: 09-26-2021 Lipid panel Lipid screen [facility] Work Phone: Start: 09-26-2021 Potassium monitoring Potassium monit oring [email or web address] Phone: Start: 06-09-2021 Breast cancer screen [facility] [place] Start: 06-09-2021 Screening for malign ant neoplasm of breast Breast cancer screen [email or web address] Phone: Start: 04-16-2021 End: 04-16-2021 Patient encounter procedure 04/16/2021 Office Visit Internal Medicine Elsie Jeffrey MD [address] [place] [address] [facility] Start: 04-11-2021 Annual Wellness Visi t (AWV) Annual Wellness Visit (AWV) [email or web address] Phone: Start: 12-20-2020 Influenza vaccination Flu vaccine (# 1) [email or web address] Phone: Start: 12-04-2020 Shingles Vaccine (3 of 3) Shingles Vaccine (3 of 3) [email or web address] Phone: Start: 05-15-2020 Breast cancer screen Breast cancer s abimael [email or web address] Phone: Start: 04-27-2020 Shingles Vaccine (2 of 3) Shingles Vaccine (2 of 3) [email or web address] Phone: Comment on above: Postponed from 06/16 (Unavailable) Start: 04-10-2020 End: 04-10-2020 Office Visit 04/10/2020 Office Visit Internal Medicine Elsie Jeffrey MD [address] [place] [id number] [facility] Start: 04-06-2020 Annual Wellness Visi t (AWV) Annual Wellness Visit (AWV) [facility] [place] Start: 04-05-2020 Annual Wellness Visi t (AWV) Annual Wellness Visit (AWV) [email or web address] Phone: Start: 03-30-2020 A1C test (Diabetic o r Prediabetic) A1C test (Diabetic or Prediabetic) [email or web address] Phone: Start: 03-30-2020 Creatinine monitoring Creatinine mon itoring [email or web address] Phone: Start: 03-30-2020 Lipid screen Lipid screen [facility] Phone: Start: 03-30-2020 Potassium monitoring Potassium monit oring [email or web address] Phone: Start: 02-09-2020 Colon cancer screen colonoscopy Colon cancer screen colonoscopy [email or web address] Phone: Start: 10-18-2019 End: 10-18-2019 Office Visit 10/18/2019 Office Visit Internal Medicine Elsie Jeffrey MD [address] [place] [id number] Wesley Jeffrey MD [facility] Start: 06-09-2019 End: 06-09-2019 Patient encounter procedure 06/09/2019 Appointment Radiology [facility] Start: 04-27-2019 End: 04-27-2019 Patient encounter procedure 04/27/2019 Office Visit Obstetrics and Gynecology Shanice Niño, PROOFREADER - CNM [facility] [address] [address] [facility] [employer] Start: 2013 Fall Risk Screening Fall Risk Screen ing [employer] Start: 06-16-2013 Shingles Vaccine (2 of 3) Shingles Vaccine (2 of 3) [email or web address] Phone: Start: 1993 Screening for malign ant neoplasm of colon [facility] Start: 1966 Adult BMI Follow Up Plan Adult BMI Follow Up Plan [employer] Start: 1960 Depression Screening Depression Scre ening [employer] Start: 1948 Medicare Annual Wellness Visit Medicare Annual Wellness Visit [employer] Start: 1948 Screening for malign ant neoplasm of colon [facility] End: 04-27-2019 Bacteria identified in Urine by Culture Urine Culture Microbiology Routine Dysuria 1 Occurrences starting 04/27/2019 until 04/27/2019 [email or web address] Phone: Comment on above: 1 Occurrences starti ng 04/27/2019 until 04/27/2019 Bacteria identified in Urine by Culture Urine Culture Microbiology Routine Dysuria 04/27/2019 12:04 PM EST [email or web address] Phone: End: 12-11-2020 KENYA DIGITAL SCREEN W OR WO CAD BILATERAL KENYA DIGITAL SCREEN W OR WO CAD BILATERAL Imaging Routine Screening mammogram, encounter for 1 Occurrences starting 12/11/2020 until 12/11/2020 [email or web address] Phone: Comment on above: 1 Occurrences starti ng 12/11/2020 until 12/11/2020 End: 12-11-2020 KENYA MILAGRO DIGITAL SCREEN BILATERAL KENYA MILAGRO DIGITAL SCREEN BILATERAL Imaging Routine Screening mammogram, encounter for 1 Occurrences starting 12/11/2020 until 12/11/2020 [email or web address] Phone: Comment on above: 1 Occurrences starti ng 12/11/2020 until 12/11/2020 KENYA MILAGRO DIGITAL SCR EEN BILATERAL KENYA MILAGRO DIGITAL SCREEN BILATERAL Imaging Routine Screening mammogram, encounter for 12/11/2020 12:14 PM EDT [email or web address] Phone: End: 10-30-2021 Surgical Pathology Surgical Pathology Lab Routine Nevus 1 Occurrences starting 10/30/2021 until 10/30/2021 [facility] Phone: Comment on above: 1 Occurrences starti ng 10/30/2021 until 10/30/2021 End: 10-30-2021 SURGICAL PATHOLOGY REPORT SURGICAL PATHOLOGY REPORT Lab Routine Once for 1 Occurrences starting 10/30/2021 until 10/30/2021 [facility] Phone: Comment on above: Once for 1 Occurrenc es starting 10/30/2021 until 10/30/2021 Immunizations Immunization Date Immunization Notes Care Provider [facility] 01-15-2023 Influenza, Seasonal, Quadrivalent, Adjuvanted Flavio Singleton NP Work Phone: [facility] 01-18-2022 Moderna Bivalent Booster Vaccination Flavio Singleton NP Work Phone: [facility] 01-09-2022 Influenza, Seasonal, Quadrivalent, Adjuvanted Flavio Singleton [employer] Work Phone: [facility] 12-20-2020 Influenza, Quadv, adjuvanted, 65 yrs +, IM, PF (Fluad) Elsie Jeffrey MD Work Phone: [facility] Work Phone: 12-20-2020 zoster vaccine recombinant Elsie Jeffrey MD Work Phone: [facility] Work Phone: 10-09-2020 zoster vaccine recombinant Elsie Jeffrey MD Work Phone: [facility] Work Phone: 06-14-2020 COVID-19 Vaccine Pfi zer - Documentation Purposes Only Mary Francis Other [facility] 05-24-2020 COVID-19 Vaccine Pfi zer - Documentation Purposes Only Mary Francis Other [facility] 12-15-2019 influenza virus vaccine, unspecified formulation [facility] Work Phone: 12-15-2019 influenza, injectabl e, quadrivalent, preservative free Flavio Singleton NP Work Phone: [facility] 12-15-2019 Influenza, Quadv, adjuvanted, 65 yrs +, IM, PF (Fluad) [facility] Work Phone: 01-23-2019 Seasonal trivalent influenza vaccine, adjuvanted, preservative free Elsie Jeffrey MD Work Phone: [facility] Work Phone: 01-19-2019 influenza virus vaccine, unspecified formulation Flavio Singleton NP Work Phone: [facility] 01-19-2019 influenza, injectabl e, quadrivalent, preservative free Flavio Singleton [employer] Work Phone: [facility] 02-05-2018 influenza virus vaccine, unspecified formulation Elsie Jeffrey MD Work Phone: [facility] 02-05-2018 Seasonal trivalent influenza vaccine, adjuvanted, preservative free Flavio Areli [employer] Work Phone: [facility] 01-27-2018 influenza, injectabl e, quadrivalent, preservative free Flavio Areli [employer] Work Phone: [facility] 01-19-2017 influenza, injectabl e, quadrivalent, preservative free Flavio Areli [employer] Work Phone: [facility] 01-17-2017 influenza virus vaccine, unspecified formulation Elsie Jeffrey MD Work Phone: [facility] 01-17-2017 influenza, seasonal, injectable Flavio Areli [employer] Work Phone: [facility] 01-02-2017 Seasonal trivalent influenza vaccine, adjuvanted, preservative free Flavio Areli [employer] Work Phone: [facility] 02-13-2016 pneumococcal polysaccharide vaccine, 23 valent Elsie Jeffrey MD Work Phone: [facility] Work Phone: 01-20-2016 pneumococcal polysaccharide vaccine, 23 valent [facility] Work Phone: 01-20-2016 seasonal influenza, intradermal, preservative free Flavio Singleton [employer]NAGER [employer] Work Phone: [facility] 01-09-2016 Influenza Vaccine, unspecified formulation Elsie Jeffrey MD Work Phone: [facility] Work Phone: 01-09-2016 influenza virus vaccine, unspecified formulation Flavio Singleton [employer]NA[employer] Work Phone: [facility] 01-09-2016 influenza, high dose seasonal, preservative-free Flavio Areli [employer]NA[employer] Work Phone: [facility] 02-06-2015 influenza, high dose seasonal, preservative-free Flavio Areli [employer] Work Phone: [facility] 02-06-2015 pneumococcal conjuga te vaccine, 13 valent Flavio Singleton NP Work Phone: [facility] 01-19-2015 Influenza Vaccine, unspecified formulation Elsie Jeffrey MD Work Phone: [facility] Work Phone: 01-19-2015 influenza virus vaccine, unspecified formulation Flavio Singleton NP Work Phone: [facility] 01-19-2015 pneumococcal conjuga te vaccine, 13 valent Elsie Jeffrey MD Work Phone: [facility] Work Phone: 01-08-2014 tetanus toxoid, redu dona diphtheria toxoid, and acellular pertussis vaccine, adsorbed Elsie Jeffrey MD Work Phone: [facility] 04-21-2013 zoster vaccine, live Michel Jeffrey MD Work Phone: [facility] Work Phone: 03-14-2009 novel [id number], preservative-free, injectable Flavio Singleton NP Work Phone: [facility] Payers Date Payer Category Payer Self-pay [id number] 2014 Medicare MEDICARE MEDICAR E PART A AND B xxxxxxxxxxx 2014-Present [phone] [address] [address] [place] [address] xxxxxxxxxxx [id number] 2014 Private Health Insurance [employer] Tia [employer] S[employer]IOR MEDICARE SUPP xxxxxxxxxx 2014-Present [phone] [address] [address] [place] [address] xxxxxxxxxx [id number] .[id number] 2014 Private Health Insurance [id number] .[id number] .[id number] 2014 Private Health Insurance [id number] 2014 Medicare [id number] .[id number] 1959 Medicare [id number] [id number] .7.3.256227.315 1959 Private Health Insurance [id number] 1.2.840.947759.1.13.239.2 .7.3.135042.315 1948 Unknown [id number] 2.16.840.1.482172.3.579.2 .593 1948 Unknown [id number] 2.16.840.1.319737.3.579.2 .593 1948 Unknown [id number] 2.16.840.1.350667.3.579.2 .1286 1948 Unknown [id number] 2.16.840.1.678736.3.579.2 .128 1948 Unknown [id number] 2.16.840.1.086403.3.579.2 .128 1948 Unknown [id number] 2.16.840.1.742360.3.579.2 .1286 1948 Unknown [id number] 2.16.840.1.726915.3.579.2 .1286 1948 Unknown [id number] 2.16.840.1.283321.3.579.2 .1286 1948 Unknown [id number] 2.16.840.1.510197.3.579.2 .1286 1948 Unknown [id number] 2.16.840.1.792366.3.579.2 .128 1948 Unknown [id number] 2.16.840.1.788891.3.579.2 .1286 1948 Unknown [id number] 2.16.840.1.059927.3.579.2 .1286 1948 Unknown [id number] 2.16.840.1.206741.3.579.2 .196 1948 Unknown [id number] 2.16.840.1.378332.3.579.2 .196 1948 Unknown [id number] 2.16.840.1.976593.3.579.2 .173 1948 Unknown [id number] 2.16.840.1.848001.3.579.2 .173 1948 Unknown [id number] 2.16.840.1.427649.3.579.2 .173 1948 Unknown [id number] 2.16.840.1.469802.3.579.2 .173 1948 Unknown [id number] 2.16.840.1.874347.3.579.2 .173 1948 Unknown [id number] 2.16.840.1.119714.3.579.2 .173 1948 Unknown [id number] 2.16.840.1.080365.3.579.2 .173 1948 Unknown [id number] 2.16.840.1.927785.3.579.2 .173 1948 Unknown [id number] 2.16.840.1.118096.3.579.2 .1259 1948 Unknown [id number] 2.16.840.1.134390.3.579.2 .1259 1948 Unknown [id number] 2.16.840.1.126777.3.579.2 .1259 1948 Unknown [id number] 2.16.840.1.139269.3.579.2 .1259 1948 Unknown [id number] 2.16.840.1.244453.3.579.2 .1259 1948 Unknown [id number] 2.16.840.1.185484.3.579.2 .1259 1948 Unknown [id number] 2.16.840.1.692995.3.579.2 .9 1948 Unknown [id number] 2.16.840.1.601759.3.579.2 .1259 1948 Unknown [id number] 2.16.840.1.832692.3.579.2 .9 1948 Unknown [id number] 2.16.840.1.163994.3.579.2 .125 Unknown [id number] 2.16.840.1.362805.3.579.2 .531 Social History Date Type Detail Facility Start: 04-27-2019 End: 11-14-2022 Tobacco smoking status [facility] Former smoker [email or web address] Phone: Start: 04-21-1968 End: 09-19-1972 History of tobacco use Current smoker [email or web address] Phone: Start: 04-27-2019 End: 06-02-2023 Cigarettes smoked current (pack per day) - Reported [email or web address] Phone: Start: 04-27-2019 End: 06-02-2023 Alcohol intake Current drinker of alcohol (finding) [email or web address] Phone: Start: 02-05-2012 Alcohol Comment socially [facility] [facility] Work Phone: Start: 1950 Sex Assigned At Not on file [employer] Work Phone: Start: 12-11-2020 End: 11-14-2022 Tobacco use and exposure Never used [employer] Start: 10-05-2020 History 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 [employer] Work Phone: Start: 10-05-2020 End: 04-16-2021 History 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 [email or web address] Phone: Start: 07-12-2019 History SDOH Transpo rt Med 2 [email or web address] Phone: Start: 1950 Sex Assigned At Female [employer] Work Phone: Exposure to SARS-CoV -2 (event) Not sure [employer] Start: 04-16-2023 End: 06-02-2023 Sex Assigned At [facility] [employer] Other Start: 04-16-2021 History SDOH Financial 5 [facility] [employer] Work Phone: Housing Instability Unknown [facility] Start: 04-16-2023 Tobacco Comment quit in 1970s [facility] Start: 07-21-2018 Alcohol Comment social [facility] Start: 04-21-1968 End: 09-19-1972 History of tobacco use Cigarette Smoker [facility] Start: 11-13-2022 Tobacco Comment Stopped smokin years [facility] Start: 11-14-2022 Alcohol Comment Less than 1 per week [facility] Start: 04-25-2017 Tobacco smoking stat us NHIS Never smoked tobacco (finding) [facility] Medical Equipment Procedure Code Equipment Code Equipment Origin al Text Equipment Identifier Dates Cmnt Bn Bio 40gm Rpl [id number] - Sna - [id number] Start: 08-11-2018 Cmpt Ptlr 32mm N xgn Alply Rpl [id number] + [id number] + [id number] - Sna - [id number] Start: 08-11-2018 Plt Tib [id number] Nxgn Kn Cmnt Rpl [id number] + [id number] - Sna - [id number] Start: 08-11-2018 Clinical Notes 01-18-2021 to 06-02-2023 Flavio Singleton NP - 06/02/2023 9:45 AM ESTGrant Jose Singleton NP - 05/22/2023 11:00 AM ESTPatient Instructions Note Date & Type Note Facility 06-02-2023 History of Present illness Narrative Images from the original note were not included. Chief Complaint Patient presents with Left Knee - Follow-up HISTORY OF PRESENT ILLNESS: Gladis Patten is an 72 y.o. @ female. (EST PT) S/P LT TKA 05/13/23 (2WKS 6 DAYS). NO LONGER WEARING IMMOBILIZER. WILL GET RANDOM PAINS DIFFUSE IN KNEE. TAKING PERCOCET AT HS. DISCOMFORT AT HS. DOING HEP, SCHEDULED FOR OP PT FRIDAY. DENIES N/T. ADMITS SWELLING. DENIES GIVING OUT. TAKING ASA AND FE. WEARING AYLIN HOSE. DENIES DRAINAGE. STERI STRIPS APPLIED. INCISION HEALING WELL. ALLERGIES: Allergies Allergen Reactions Codeine Palpitations and Unknown Other reaction(s): Unknown HOME MEDICATIONS: Current Outpatient Medications Medication Instructions albuterol HFA 90 mcg/act inhaler 2 puffs, Inhalation, Every 4 hours PRN atorvastatin (LIPITOR) 40 mg, Oral, Daily budesonide-formoterol (Symbicort) 160-4.5 MCG/ACT inhaler 2 puffs, Inhalation, 2 times daily RT, Rinse mouth with water after use to reduce aftertaste and incidence of candidiasis. Do not swallow. calcium carbonate (CALCIUM 600) 600 mg, Oral, Daily celecoxib (CELEBREX) 200 mg, Oral, Daily colestipol (COLESTID) 1 g, Oral, 2 times daily, Take at least 1 hour after or 4 hours before other medications. hydroCHLOROthiazide (HYDRODIURIL) 25 mg, Oral, Daily lisinopril 10 mg, Oral, Daily loperamide (IMODIUM) 2 mg, Oral, 4 times daily PRN loratadine (Claritin) 10 MG tablet Oral omeprazole (PRILOSEC) 20 mg, Oral, Daily before breakfast, Do not crush or chew. REVIEW OF SYSTEMS: General: Denies fever, fatigue or weight loss Skin: Denies rash, sores or skin changes Eyes: Denies visual disturbance or pain GI: Denies indigestion or abdominal pain Neuro: Denies numbness or tingling, denies new onset paralysis Musculoskeletal: ( see note) PHYSICAL EXAM: Left Ankle Exam Range of Motion Dorsiflexion: normal Plantar flexion: normal Muscle Strength Dorsiflexion: 5/5 Plantar flexion: 5/5 Left Knee Exam Muscle Strength The patient has normal left knee strength. Tenderness Left knee tenderness location: Compartments soft, expected soreness medial and lateral knee. Range of Motion Left knee flexion: tightness on terminal flexion. Tests Varus: negative Valgus: negative Other Erythema: absent Scars: present ([place] present, removed, no dehiscence or drainage) Sensation: normal Pulse: present Swelling: mild Effusion: effusion (consistent with surgery) present Comments: Operative lower extremity was noted to be neurovascularly intact. Patient was able to motor feet, toes and ankles in all anatomic planes bilaterally with 5 out of 5 strength. Operative knee's patellar tracking was optimal and quad/ham strength was 5 out of 5 to operative lower extremity. There was no varus valgus, anterior-posterior, or rotatory instability noted to the operative knee. Swelling was well controlled, patella was not ballotable and compartments were soft to the operative lower extremity. Dorsalis pedis and posterior tibial pulses were present and equal bilaterally. There was no evidence of infection or ascending lymphangitis to operative lower extremity. Sensation to light touch was intact to all dermatomes to bilateral lower extremities. Negative Homans and negative Cesar were noted bilaterally to lower extremities. Incision was healing without evidence of infection. Two areas where skin was torn secondary to steri strip removal, one at medial incision and one at distal incision. No signs of infection. Vitals: There is no height or weight on file to calculate BMI. IMAGING: ASSESSMENT: ICD-10-CM 1. Status post total left knee replacement Z96.652 Procedures PLAN: Patient states that her knee is doing well with improved ROM and little incision pain. Incision is healing well with two small skin tears after steri strips removed. No signs of infection. She is cleared to start OP PT but should stop if she's has increased pain. She will follow up in 3 weeks for Rck and xray. She will call with any worsening symptoms or signs of infection. Questions answered in laymen terms at the bedside. The diagnosis, home exercise plan and any ongoing restrictions/ recommendations reviewed. If unable to be reached in office, I recommend evaluation at nearest Emergency Room if any symptoms worsened or new symptoms develop for requiring urgent evaluation. Flavio Singleton PROOFREADER-MACARONI PRESS OPERATOR documented in this encounter [facility] 05-22-2023 History of Present illness Narrative Chief Complaint Patient presents with Left Knee - Follow-up HISTORY OF PRESENT ILLNESS: Gladis Patten is an 72 y.o. @ female. PO LT TKA 05/13/23 (9 DAYS). WALKING WITH WALKER. WEARING IMMOBILIZER, HAS NOT WORN SINCE FRIDAY. STATES SHE IS KEEPING HER LEG STRAIGHT. IMMOBILIZER KEEPS SLIDING DOWN. TAKING PERCOCET, MOSTLY FOR BACK AFTER SITTING ALL DAY. PAIN DIFFUSE IN KNEE AND INTO THIGH, PAIN IS 4/10. USING ICE. KEEPS KNEE WRAPPED IN DAYAN WRAP AND WEARS ABD. DOES NOT WAKE AT HS. DENIES N/T. ADMITS SWELLING. HAS ONE SPOT DISTAL INCISION WITH SOME DRAINAGE. WEARING AYLIN HOSE. BRUISING. SLEEPING IN RECLINER. HOME THERAPY FOR WALKING AND STANDING EXERCISES. TAKING ASA AND FE. TAY INTACT, NOT REMOVED TODAY. ALLERGIES: Allergies Allergen Reactions Codeine Palpitations and Unknown Other reaction(s): Unknown HOME MEDICATIONS: Current Outpatient Medications Medication Instructions albuterol HFA 90 mcg/act inhaler 2 puffs, Inhalation, Every 4 hours PRN atorvastatin (LIPITOR) 40 mg, Oral, Daily budesonide-formoterol (Symbicort) 160-4.5 MCG/ACT inhaler 2 puffs, Inhalation, 2 times daily RT, Rinse mouth with water after use to reduce aftertaste and incidence of candidiasis. Do not swallow. calcium carbonate (CALCIUM 600) 600 mg, Oral, Daily celecoxib (CELEBREX) 200 mg, Oral, Daily colestipol (COLESTID) 1 g, Oral, 2 times daily, Take at least 1 hour after or 4 hours before other medications. hydroCHLOROthiazide (HYDRODIURIL) 25 mg, Oral, Daily Iron Polysacch [id number] (Poly-Iron 150 Forte) 150-0.025-1 MG capsule 1 tablet, Oral, Daily lisinopril 10 mg, Oral, Daily loperamide (IMODIUM) 2 mg, Oral, 4 times daily PRN loratadine (Claritin) 10 MG tablet Oral omeprazole (PRILOSEC) 20 mg, Oral, Daily before breakfast, Do not crush or chew. oxyCODONE-acetaminophen (Percocet) 5-325 MG tablet 1 tablet, Oral, Every 6 hours PRN REVIEW OF SYSTEMS: General: Denies fever, fatigue or weight loss Skin: Denies rash, sores or skin changes Eyes: Denies visual disturbance or pain GI: Denies indigestion or abdominal pain Neuro: Denies numbness or tingling, denies new onset paralysis Musculoskeletal: ( see note) PHYSICAL EXAM: Left Ankle Exam Range of Motion Dorsiflexion: normal Plantar flexion: normal Muscle Strength Dorsiflexion: 5/5 Plantar flexion: 5/5 Left Knee Exam Tenderness Left knee tenderness location: Compartments soft, expected soreness medial and lateral knee. Range of Motion Left knee extension: near full extension. Left knee flexion: not tested. Tests Varus: negative Valgus: negative Other Erythema: absent Scars: present (Tay present, removed, no dehiscence or drainage) Sensation: normal Pulse: present Swelling: mild Effusion: effusion (consistent with surgery) present Comments: Operative lower extremity was noted to be neurovascularly intact. Patient was able to motor feet, toes and ankles in all anatomic planes bilaterally with 5 out of 5 strength. Noted to have trace serosanguineous drainage on dressing. Skin is very friable. Swelling was well controlled, and compartments were soft to the operative lower extremity. Dorsalis pedis and posterior tibial pulses were present and equal bilaterally. There was no evidence of infection or ascending lymphangitis to operative lower extremity. Sensation to light touch was intact to all dermatomes to bilateral lower extremities. Negative Homans and negative Cesar were noted bilaterally to lower extremities. Incision was healing without evidence of infection Vitals: There is no height or weight on file to calculate BMI. IMAGING: ASSESSMENT: Status post total left knee replacement PLAN: Patient states that her knee pain and drainage have greatly decreased since last appointment. Her incision is well healing. She will have tay removed Friday. I recommend that she continue with aylin corwell, SHAHLA, DAYAN and knee immobilizer at this time. She will call with any signs of infection. Questions answered in laymen terms at the bedside. The diagnosis, home exercise plan and any ongoing restrictions/ recommendations reviewed. If unable to be reached in office, I recommend evaluation at nearest Emergency Room if any symptoms worsened or new symptoms develop for requiring urgent evaluation. Flavio Singleton PROOFREADER-[employer]AR[employer]I PRESS OPERATOR documented in this encounter [facility] 04-16-2023 Note XR BONE LENGTH STUDY XR BONE LENGTH STUDY HISTORY: Preoperative evaluation. Leg length discrepancy. COMPARISON: None FINDINGS: Measurements explicitly not requested by ordering surgeon. No acute fracture, dislocation, or destructive osseous lesion within the [id number]. Orthopedic hardware of the right knee and ankle without evidence of failure or complication. Degenerative changes of the left knee and ankle. IMPRESSION: No evidence of acute osseous abnormality or orthopedic hardware failure/complication. Approved by Resident Aaron King MD on 04/16/2023 2:38 PM Allan Gudino MD have personally reviewed the image(s) and agree with and/or edited the report Finalized by Allan Gonsales MD on 04/16/2023 2:41 PM [facility] 04-16-2023 Note XR BONE LENGTH STUDY HISTORY: Preoperative evaluation. Leg length discrepancy. COMPARISON: None FINDINGS: Measurements explicitly not requested by ordering surgeon. No acute fracture, dislocation, or destructive osseous lesion within the [id number]. Orthopedic hardware of the right knee and ankle without evidence of failure or complication. Degenerative changes of the left knee and ankle. IMPRESSION: No evidence of acute osseous abnormality or orthopedic hardware failure/complication. Approved by Resident Aaron King MD on 04/16/2023 2:38 PM Allan Gudino MD have personally reviewed the image(s) and agree with and/or edited the report Finalized by Allan Gonsales MD on 04/16/2023 2:41 PM [facility] Instructions Radhika Ocampo RN - 04/16/2023 9:00 AM EST Preoperative Education Checklist- General Surgery date: 05/13/23 Surgery time: 745a Arrival time: 610a Please come back to the hospital between 05/05/23-05/12/23Friday-Friday 630a-430p. Stop at the registration desk upon arrival. After the lab, they will give you a green blood band, bring that back with you day of surgery. 1. Bring a photo ID and your insurance card with you the day of surgery. You will check in at the main lobby of the [facility]- registration desk is straight ahead as soon as you walk in. Tell them you are here for surgery. 2. If you have a Living Will/Durable Power of Corporate Sales Manager for Health Care that is not on file here, please bring a copy the day of surgery. 3. Please shower/bathe the night before surgery with the provided soap or wipes. Do not shower the morning of surgery- you will do use wipes when you arrive here at the hospital before getting into your surgical gown. Do not shave the area of your procedure for 2 days prior to your surgery. 4. NO powder, lotion, perfume/cologne, aftershave, make-up, deodorant, or hair products after you have bathed. 5. NO nail kosovan/acrylic on at least one finger. If you are having a hand, wrist or foot surgery then all nail kosovan and artificial/acrylic nails must be removed from that hand or foot. 6. Avoid ALL Aspirin and non-steroidal anti-inflammatory drugs and certain vitamins (Ibuprofen, Advil, Aleve, Excedrin, Meloxicam, Celebrex, fish/krill oil, etc.) for 7 days prior to surgery as instructed by your surgeon and/or your prescribing doctor. Tylenol IS ALLOWED. If you are on Ticlid, Xarelto, Eliquis, Pradaxa, Plavix or Coumadin, please check with your prescribing doctor for instructions for when to stop them. 7. If you use an inhaler, continue to use it routinely. 8. Nothing to eat or drink (not even water, gum, mints, or hard candy!) AFTER midnight prior to your surgery. 9. Take only medications that you are instructed to on the morning of surgery with a TINY SIP OF WATER. 10. Choose a responsible adult that will be able to drive you home when you are discharged from your hospital stay for your surgery and can stay with you in your home for 24 hours after your procedure. You must NOT drive any vehicle or operate any machinery for 24 hours after surgery. 11. When you dress for your appointment, please wear loose fitting clothing that is appropriate to accommodate your surgical area procedure. BRING WITH YOU ANY DEVICES YOU MAY NEED: AYLIN hose, ice machine, sling/swath, brace or special shoe, oversized zip-up or button up shirt, CPAP machine if staying overnight. 12. Do NOT wear jewelry, watches, or any piercings or metal for surgery- leave these valuables and money at home. 13. Do NOT wear contact lenses for surgery- glasses are okay if needed. 14. The anesthesiologist will talk with you the day of surgery and will ask you to sign a Consent Form. 15. Refrain from smoking or any type of tobacco use for at least 8 hours and marijuana for 24 hours prior to arrival for your surgery. 16. If a GREEN BLOOD band is given to you, please bring it with you for the day of surgery. 17. Notify your surgeon if you develop any illness before your surgery. 18. If you are staying overnight, please DO NOT BRING your home medications with you. 19. If you have any questions prior to surgery, please call the Preadmission Testing office at [phone], Mon.-Fri. 7 a.m.-3 p.m. Leave a voicemail if needed. Pre-Surgery Instructions: Medication Instructions albuterol (PROVENTIL HFA;VENTOLIN HFA) 90 mcg/actuation inhaler Take morning of procedure if needed atorvastatin (LIPITOR) 40 mg tablet Stop taking 0 days prior to procedure budesonide-formoterol (SYMBICORT) 80-4.5 mcg/actuation inhaler Take morning of procedure calcium carbonate (OS-GODWIN) 600 mg (1,500 mg) tablet Stop taking 0 days prior to procedure celecoxib (CeleBREX) 200 mg capsule Stop taking 14 days prior to procedure colestipoL (COLESTID) 1 g tablet Stop taking 0 days prior to procedure hydroCHLOROthiazide (HYDRODIURIL) 25 mg tablet Stop taking 0 days prior to procedure lisinopril (PRINIVIL,ZESTRIL) 10 mg tablet Pt takes at night omeprazole (PriLOSEC) 20 mg capsule Pt takes at night loperamide (IMODIUM) 2 mg capsule Take morning of procedure How to Avoid an Infection after Your Surgery Your doctor will give you specific instructions, but remember: -ALWAYS wash hands before caring for your incision. -No picking, scratching, or rubbing your incision. -No creams, lotion, powder, rubbing alcohol or hydrogen peroxide on the incision (can harm the tissue and slow healing). -Your doctor will give you specific instructions for what type of dressing you will need and how often it will need changed for infection purposes. -No tight clothing on incision. -Do not allow anyone to touch your incision unless they are cleaning, checking, or redressing it (be sure they wash their hands first). -No contact of your incision with pets; avoid sleeping with pets. -Take full course of antibiotic if prescribed for you after surgery- do not stop unless directed to by your physician. You may also be given an antibiotic prior to your surgery to help prevent surgical site infections. -Eat a healthy and varied diet including proteins, fruits, and vegetables to help promote wound healing and keep blood sugars under control if you are diabetic. -Smoking slows the healing process by decreasing the amount of oxygen in your blood that is needed for tissue healing. Try to avoid or stop smoking if possible. LOOK at your incision each morning and each night to check the progress of healing. Some soreness, numbness, itching and/or mild bruising around the incision is normal. Call your doctor if you notice any of the following: -Increased redness or hardening around the incision area. -Increased pain at the incision site. -Incision feels hot to the touch. -Swelling or pulling apart of the incision edges. -Yellow or green drainage or foul odor coming from the incision. -Bleeding from the incision (apply pressure as needed). -Fever higher than 101 degrees Fahrenheit for more than 4 hours. SHOWERING: Your doctor will give you specific instructions, but remember: -Be careful getting into and out of the shower. -Showers should be quick (5 minutes or less). -Use a clean washcloth to gently wash your incision with soap and water and pat the area dry with a clean towel. -No re-using wash cloths or towels; get a fresh one to clean your incision. -Do not soak in the bathtub, go swimming or use a hot tub (Jacuzzi), or perform activities where your incision is submerged in water or exposed to any fluids or substances until instructed by your doctor. -If your have the sticky strips (steri-strips) over the incision, it is OK to shower with them. Do not remove them. Let them fall off on their own. If you have a question, call your doctor s office. Go to the follow-up appointment with your doctor. [facility] PROCEDURE: XR ANKLE RT MIN 3 VIEWS COMPARISON: 10/31/2021 HISTORY: Pain of right ankle joint FINDINGS: BONES:Ankle arthroplasty. No acute fracture, dislocation or mechanical failure. Subtalar fusion. Flattening of the plantar arch. Moderate degenerative changes SOFT TISSUES:Negative. No visible soft tissue swelling. EFFUSION:None visible. OTHER: Negative. IMPRESSION: Stable ankle arthroplasty and subtalar fusion Electronically authenticated by: MARY CHRISTIAN Date: 2022-06-19 18:05 [facility] 10-31-2021 Note PROCEDURE: XR ANKLE RT MIN 3 VIEWS COMPARISON: 04/24/2021 HISTORY: Pain of right ankle joint FINDINGS: BONES:Stable partial talus and tibial plafond arthroplasty. Subtalar fusion with cannulated screws. No acute fracture, dislocation or mechanical failure SOFT TISSUES:Soft tissue swelling EFFUSION:None visible. OTHER: Negative. IMPRESSION: Stable ankle replacement and subtalar fusion Electronically authenticated by: MARY CHRISTIAN Date: 2021-10-31 20:14 [facility] 10-31-2021 Note PROCEDURE: XR FOOT R T MIN 3 VIEWS COMPARISON: 04/24/2021 HISTORY: Pain in right foot FINDINGS: BONES:Stable partial talus and tibial plafond arthroplasty is. Subtalar fusion with cannulated screws. Arthroplasty base of the first proximal phalanx with medial subluxation in relation to the first metatarsal head SOFT TISSUES:Diffuse soft tissue swelling EFFUSION:None visible. OTHER: Negative. IMPRESSION: Stable ankle replacement with no acute fracture, dislocation or mechanical failure Electronically authenticated by: MARY CHRISTIAN Date: 2021-10-31 19:12 [facility] 06-11-2021 Evaluation note Encounter Date Diagnosis Assessment Notes May, Irritable bowel syndrome with diarrhea (ICD-10 - K58.0) [facility] Other 01-17-2022 Evaluation note* Encounter Date Diagnosis Assessment Notes Treatment Notes Treatment Clinical Notes Apr, Diarrhea (ICD-10 - R19.7) [facility] Other 11-18-2021 Evaluation note* Encounter Date Diagnosis Assessment Notes Treatment Notes Treatment Clinical Notes Feb, Irritable bowel syndrome with diarrhea (ICD-10 - K58.0) PATIENT STATES THAT SHE IS DOING WELL. PATIENT STATES THAT SHE HAS USED IMODIUM ONCE NEEDED. PATIENT IS ENCOURAGED CAN USE THE IMDOIUM DAILY WITH THE COLESTIPOL. [facility] Other 09-30-2021 Evaluation note* Encounter Date Diagnosis Assessment Notes Treatment Notes Treatment Clinical Notes Dec, Irritable bowel syndrome with diarrhea (ICD-10 - K58.0) Dec, Other Diarrhea material was printed START COLESIPOL 1 GRAM 2 PO DAILY OK TO USE IMODIUM PRN F/U HERE 6-8 WEEKS [facility] Other Evaluation note* Diagnosis Screening mammogram, encounter for documented in this encounter [email or web address] Phone: [email or web address] note* Diagnosis Dysuria documented in this encounter [email or web address] Phone: [email or web address] noteNo InformationNort [employer] Other Evaluation note* Diagnosis Nevus Benign neoplasm of skin, site unspecified documented in this encounter [facility] [employer] [employer] Phone: evaluation note* Diagnosis Preop examination- Primary Unspecified pre-operative examination Hypertension, unspecified type Chronic obstructive pulmonary disease, unspecified COPD type (CMS-HCC) Urinary frequency Osteoarthritis of left knee, unspecified osteoarthritis type Preop examination Unspecified pre-operative examination Hypertension, unspecified type Chronic obstructive pulmonary disease, unspecified COPD type (CMS-HCC) Urinary frequency Preop examination Unspecified pre-operative examination Hypertension, unspecified type Chronic obstructive pulmonary disease, unspecified COPD type (CMS-HCC) Urinary frequency Osteoarthritis of left knee, unspecified osteoarthritis type [facility] Diagnosis Status post total left knee replacement- Primary [facility] Diagnosis Status post total left knee replacement- Primary documented in this encounter [facility] noteNo assessment information [facility]Main [facility] Work Phone: History general Narrative - Reported* Type Description Date Medical History hypertension Medical History high cholesterol Surgical History CHOLECYSTECTOMY Surgical History RIGHT ARTHROSCOPY -2016 Surgical History RIGHT FOOT TOE REPLACEMENT Surgical History TUBAL LIGATION Surgical History RT KNEE REPLACEMENT 2019 Surgical History RT ANKLE 2018 Surgical History LEFT KNEE SCOPE 2019 Hospitalization History SEE ABOVE [facility] Other Reason for Referral Status Reason Specialty Diagnoses / Procedures Referred By Contact Referred To Contact Closed Radiology Diagnoses Visit for screening mammogram Procedures KENYA DIGITAL SCREEN W CAD BILATERAL HC MAMMO SCREENING INCL CAD IF PERF Elsie Jeffrey MD [address] [place] [address] Status Reason Specialty Diagnoses / Procedures Referre d By Contact Referred To Contact Closed Radiology Diagnoses Screening mammogram, encounter for Procedures KENYA MILAGRO DIGITAL SCREEN BILATERAL Shanice Niño, PROOFREADER - CNM [address] [facility] [address] [place] [address] Status Reason Specialty Diagnoses / Procedures Referred By Contact Referred To Contact Closed Radiology Diagnoses Screening mammogram, encounter for Procedures KENYA DIGITAL SCREEN W OR WO CAD BILATERAL Elsie Jeffrey MD [address] [place] [address] [facility] [address] [place] [address] Assessments Diagnosis Visit for screening mammogram Other screening mammogram Advance Directives No Advanced Directives Records FoundDocuments on File Type Date Recorded Patient Complaint Operator Expl anation Advance Directives and Living Will Power of Corporate Sales Manager Latest Code Status on File Code Status Date Activated Date Inactivated Comments Full Code 04/06/2019 10:44 AM Documents on File Type Date Recorded Patient Complaint Operator Expl anation ACP-Advance Directive ACP-Power of Corporate Sales Manager Documents on File Type Date Recorded Patient Complaint Operator Expl anation Advance Directives and Living Will Power of Corporate Sales Manager Latest Code Status on File Code Status Date Activated Date Inactivated Comments Full Code 04/06/2019 10:44 AM Documents on File Type Date Recorded Patient Complaint Operator Expl anation ACP-Advance Directive ACP-Power of Corporate Sales Manager Healthcare Agents on File Name Relationship Healthcare Agent Relationship Communication Efren Patten Spouse Primary Decision Maker Latest Code Status on File Code Status Date Activated Date Inactivated Comments Full Code 08/11/2018 12:23 PM 08/13/2018 5:41 PM Advance Directive Response Recorded Date/ Time Advance Directives No February 3:57pm Summary Purpose Family History No Family History Records Found Relationship Condition Age at Onset Recorded Date/T alexander family member Unknown Not Specified Unknown Hypertension Unknown Malignant neoplasm Unknown Chief Complaint and Reason for Visit Chief Complaint lumbar stenosis Additional Source Comments Reason for Visit (unrecogniz ed section and content) Status Reason Specialty Diagnoses / Procedures Referred By Contact Referred To Contact Closed Radiology Diagnoses Visit for screening mammogram Procedures KENYA DIGITAL SCREEN W CAD BILATERAL HC MAMMO SCREENING INCL CAD IF PERF Elsie Jeffrey MD [address] [place] [address] Status Reason Specialty Diagnoses / Procedures Referred By Contact Referred To Contact Closed Radiology Diagnoses Screening mammogram, encounter for Procedures KENYA DIGITAL SCREEN W OR WO CAD BILATERAL Elsie Jeffrey MD [address] [place] [address] [facility] [place] [address] Reason Comments Follow-up Care Teams (unrecognized sec tion and content) Optical Engineering Technician Relationship Specialty Start Date End Date Elsie Jeffrey MD [address] [place] [address] PCP - General 08/17/13 Optical Engineering Technician Relationship Specialty Start Date End Date Elsie Jeffrey MD [address] [place] [address] PCP - General Internal Medicine 07/21/18 Optical Engineering Technician Relationship Specialty Start Date End Date Elsie Jeffrey MD [address] [place] [address] PCP - General Internal Medicine 11/08/22 Optical Engineering Technician Relationship Specialty Start Date End Date Elsie Jeffrey MD [address] [place] [id number] PCP - General Internal Medicine 11/08/22 Optical Engineering Technician Relationship Specialty Start Date End Date Elsie Jeffrey MD [address] [place] [id number] PCP - General Internal Medicine 11/08/22 Team Status: Active Member Role Status Dates Elsie Jeffrey MD Primary Care Provider Active Team Status: Inactive Member Role Status Dates James Quigley MD Attending Provider Active Start: July 30, 2023 End: July 30, 2023 Elsie Jeffrey MD Primary Care Provider Active Start: July 30, 2023 End: July 30, 2023 INFORMATION SOURCE (unrecogn ized section and content) DATE CREATED AUTHOR 06/25/2022 [facility] DATE CREATED AUTHOR AUTHOR'S ORGANIZ ATION 11/06/[address] [facility] DATE CREATED AUTHOR AUTHOR'S ORGANIZ ATION 05/17/2023 [facility] DATE CREATED AUTHOR AUTHOR'S ORGANIZ ATION 07/24/2023 [facility] DATE CREATED AUTHOR AUTHOR'S ORGANIZ ATION 08/02/2023 [facility] DATE CREATED AUTHOR AUTHOR'S ORGANIZ ATION 08/05/2023 [facility] DATE CREATED AUTHOR AUTHOR'S ORGANIZ ATION 08/06/2023 [facility] EPIC Goals (unrecognized section and content) Goals may be documented in a n alternate section FOR RECORDS PERTAINING TO PATIENTS WHO ARE OR HAVE BEEN ENROLLED IN A CHEMICAL DEPENDENCY/SUBSTANCEABUSE PROGRAM, SOME INFORMATION MAY BE OMITTED. This clinical summary was aggregated from multiple sources. Caution should be exercised in using it in the provision of clinical care. This summary normalizes information from multiple sources, and as a consequence, information in this document may materially change the coding, format and clinical context of patient data. In addition, data may be omitted in some cases. CLINICAL DECISIONS SHOULD BE BASED ON THE PRIMARY CLINICAL RECORDS. [employer] provides no warranty or guarantee of the accuracy or completeness of information in this document.
== END 2023-08-07 07:59 | disposition home or self-care (01) ==
LOC: PM 07:59
PROVIDERS: PCP Internal Medicine; Visit Provider Nurse Practitioner
DX: M48.062 Spinal stenosis, lumbar region with neurogenic claudication (principal); M79.18 Myalgia, other site
CPT/HCPCS: G0463

== ENCOUNTER 2023-09-10 08:06 | Outpatient (OUT) | payer MEDICARE, SELFPAY ==
--- NOTE | 2023-09-10 08:18 | P.CN_ITS ---
Consult Note: HPI Data of Consult Patient: known to practice within the last 3 years Consult date: 07/14/23 Requesting Physician: Kassie Andrade NP Primary Care Provider: ELSIE JEFFREY Consult Narrative Reason for consult: low back, left hip and leg pain Narrative: 72yof who presents for evaluation. worsening left low back pain ongoing for years. has engaged in >6 weeks of provider directed home exercise program, with limited benefit. uses celebrex and flexeril with moderate benefit. denies adverse med side effects. recently underwent lumbar MRI, consistent with multilevel canal and neuroforaminal stenosis and facet hypertrophy. Patient reports pain improving, now 2-3/10 increasing to 3-4. Pain in low back without radiation, annoying stiff worse in the AM. cc:: CC: Kassie Andrade NP Review of Systems 2 ROS Status of ROS 10 or more systems reviewed and unremark able except as noted in history and below Musculoskeletal Reports: back pain PFSH PFSH Medical History Osteoarthritis ?M19.90 - Unspecified osteoarthritis, unspecified site (ICD-10) Acid reflux ?K21.9 - Gastro-esophageal reflux disease without esophagitis (ICD-10) COPD (chronic obstructive pulmonary disease) ?J44.9 - Chronic obstructive pulmonary disease, unspecified (ICD-10) Palpitations ?R00.2 - Palpitations (ICD-10) HTN (hypertension) ?I10 - Essential (primary) hypertension (ICD-10) Surgical History History of carpal tunnel release ?Z98.890 - Other specified postprocedural states (ICD-10) History of knee replacement ?Z96.659 - Presence of unspecified artificial knee joint (ICD-10) History of total ankle replacement ?Z96.669 - Presence of unspecified artificial ankle joint (ICD-10) History of arthroscopic knee surgery ?Z98.890 - Other specified postprocedural states (ICD-10) Hx of cholecystectomy ?Z90.49 - Acquired absence of other specified parts of digestive tract (ICD- 10) History of tubal ligation ?Z98.51 - Tubal ligation status (ICD-10) Meds Home Medications and Allergies Home Medications ?Medication ?Instructions ?Recorded ?Confirmed ?Type atorvastatin 40 mg tablet 40 mg PO DAILY 07/14/23 07/14/23 History budesonide-formoterol HFA 160 2 inh inhalation BID 07/14/23 07/14/23 History mcg-4.5 mcg/actuation aerosol inhaler (Breyna) celecoxib 200 mg capsule (Celebrex) 200 mg PO DAILY 07/14/23 07/14/23 History colestipol 1 gram tablet (Colestid) 1 g PO DAILY 07/14/23 07/14/23 History hydrochlorothiazide 25 mg tablet 25 mg PO DAILY 07/14/23 07/14/23 History lisinopril 10 mg tablet 10 mg PO DAILY 07/14/23 07/14/23 History loperamide 2 mg capsule 2 mg PO Q6H PRN loose stool 07/14/23 07/14/23 History loratadine 10 mg tablet (Claritin) 10 mg PO DAILY 07/14/23 07/14/23 History omeprazole 20 mg capsule,delayed 20 mg PO DAILY 07/14/23 07/14/23 History release Allergies Allergy/AdvReac Type Severity Reaction Status Date / Time codeine Allergy Verified 07/14/23 14:36 Exam Constitutional Documenting provider has reviewed patient's vital signs: yes Common normals: no apparent distress, oriented x3, healthy appearing, alert and well nourished General appearance: cooperative HENMT Common normals: normocephalic, hearing grossly normal bilaterally and moist oral mucous membranes Head and scalp: normocephalic Eye Common normals: PERRL Pupil: PERRL Neck & C-Spine Common normals: full ROM General: normal visual inspection Chest Common normals: inspection of chest normal Respiratory Common normals: normal respiratory effort, no retractions and no use of accessory muscles Back & Pelvis Lumbar spine/lower back: normal to inspection, pain with ROM and straight leg raise negative bilaterally Sacroiliac joints: SI joints normal Other: facet loading positive bilaterally tenderness over left L4-5 L5-S1 facets Extremity Common normals: normal to inspection and full ROM Neuro Common normals: oriented x3, CN's II-XII intact bilaterally, moves all extremities, no focal motor deficits, no sensory deficits noted and deep tendon reflexes 2+ bilaterally Sensorium/orientation: alert Motor exam: strength 5/5 throughout and no movement abnormalities noted Psych Common normals: mental status grossly normal, thought process normal, cooperative, affect normal, speech normal and activity/motor behavior normal Speech: normal speech Thought process: normal thought process Results Additional Findings Additional findings: If on a controlled substance or opioids, I have checked an [place] report on this patient and there are no aberrancies noted in the prescribing history.??If on a controlled substance or opioid a drug screen was completed and reviewed within the last year, and if there has not been a drug screen completed we ordered one today to monitor higher risk, state monitored pain medication use. As part of providing excellent, safe, comprehensive care, the following was completed at our patient's visit: 1. A medication reconciliation and review to ensure accurate knowledge of current/active medications, including asking our patients to inform us about any [id number] medications or herbal remedies/nutritional supplements/alte rnative remedies. 2. A review to specifically ensure our patients have had annual screening for screening for depression, screening for tobacco use, and screening for unhealthy alcohol use. For concerning screenings had a discussion with the patient, provided patient education, and recommended follow-up with primary care provider when appropriate. If patient noted with a risk of falling, they received education on strength, gait, and balance training to prevent future risk of falling. Assessment and Plan Assessment and Plan (1) Lumbar stenosis with neurogenic claudication: (2) Myofascial pain: (3) Lumbar spondylosis: Plan continue current medications f/u 6 months, sooner if needed
--- OUTSIDE RECORDS SUMMARY | 2023-09-10 08:26 | XMS_ITS | CCD ---
Author Organization [facility] Inform ion [facility] Care Team Providers Care Business Line Manager Name Role Phone Elsie Jeffrey Primary Care [...] KAVITHA PARSONS Attending Unavailable KAVITHA PARSONS Consulting Elsie Piña MD Primary Care Provider ELSIE JEFFREY Referring Unavailable ELSIE JEFFREY Primary Care Unavailable FREDDY BADILLO JR Referring UnavailELSIE Holm Primary Care Unavailable FREDDY BADILLO JR Referring UnavailELSIE Holm Primary Care Unavailable FREDDY BADILLO JR Attending Unavailabl FREDDY Camilo JR Attending UnavailFREDDY Jiménez JR Referring UnavailELSIE Holm Primary Care Unavailable ELSIE JEFFREY Referring Unavailable ELSIE JEFFREY Primary Care Unavailable FREDDY BADILLO JR Admitting UnavailFREDDY Jiménez JR Attending UnavailELSIE Holm Primary Care Unavailable MARY SINGH Attending Unavailable ELSIE JEFFREY Primary Care Unavailable FREDDY BADILLO JR Attending UnavailFREDDY Jiménez JR Referring Unavailabl ELSIE Carney Primary Care Unavailable Elsie Jeffrey MD Primary Care Provider Zoya LINDSAY, Elsie Dowd Primary Care Unav ailable Zoya LINDSAY, Elsie Dowd Consulting Unav ailable Skyler Molina OD Attending Unavailable Dann LINDSAY, James Salgado Attending Unavailable Elsie Jeffrey MD Primary Care Unajenn gonzalezable MD James Quigley Attending Provider MD Elsie Jeffrey Primary Care Provider Elsie Jeffrey Primary Care Unavailable Dann, James Attending Unavailable James Quigley Admitting Unavailable SEAELSIE MORALES Primary Care Unavailable RENAN RICHARDSON Referring Unavailable SEARS, ELSIE Wilson Referring Unavailable SEARS, ELSIE Wilson Attending Unavailable SEAELSIE MORALES Primary Care Unavailable SEARS, ELSIE Wilson Referring Unavailable SEARS, ELSIE Wilson Attending Unavailable SEAELSIE MORALES Primary Care Unavailable CARMEN MATA Admitting Unavailable CARMEN MATA Attending Unavailable SEAELSIE MORALES Primary Care Unavailable SEARSELSIE Referring Unavailable SEARS, ELSIE Wilson Attending Unavailable SEARSELSIE Primary Care Unavailable SEARS, ELSIE Wilson Primary Care Unavailable SHANICE NIÑO Referring Unavailabl kita NIÑO, SHANICE VINCENT Attending Unavailabl e SEARSELSIE Referring Unavailable SEARS, ELSIE Wilson Attending Unavailable SEAELSIE MORALES Primary Care Unavailable SHANICE NIÑO Referring Unavailabl kita NIÑO, SHANICE VINCENT Attending Unavailabl e SEAANDREW, ELSIE Wilson Primary Care Unavailable SEARSELSIE Primary Care Unavailable RENAN RICHARDSON Referring Unavailable JENNIFER WHITAKER Attending Unavailable FLAVIO SINGLETON Attending Unavailable FLAVIO SINGLETON Attending Unavailable FLAVIO SINGLETON Attending Unavailable FLAVIO SINGLETON Attending Unavailable FLAVIO SINGLETON Attending Unavailable DAPHNE CONWAY Attending Unavailable FLAVIO SINGLETON Referring Unavailable FLAVIO SINGLETON Attending Unavailable DAPHNE CONWAY Attending Unavailable ANGEL PICKETT Attending Unavailable Allergies Allergy Classification Reported Allergen(s) Allergy Type Date of Onset Reaction(s) Facility (4 sources) Caffeine Drug Allergy 0 [email or web address] Phone: (17 sources) Codeine; Translations: [CODEINE] Drug Allergy 4 Palpitations, anaphylaxis, Tachycardia, Unknown [facility] Work Phone: (1 source) Caffeine Drug Allergy 8 [facility] (1 source) Codeine Drug Allergy [facility] (1 source) Codeine Drug Allergy 4 [facility] Repository Medications Current Medications Medication Drug Class(es) [...] days 20 tablet 0 05/20/2023 05/25/2023 Active [id number] 200 actuat albuterol 0.09 mg/actuat metered dose [...] Active Start: 01-18-2021 take 2 tablets by [facility] every twenty-four hours Colestipol HCl 1 GM [...] by mouth in the morning Iron Polysacch Ygpzj-H09-DI (Poly-Iron 150 Forte) 150-0.025-1 MG capsule Indications: [...] Active Start: 11-21-2020 take 1 capsule by mo ut every twelve hours Loperamide HCl 2 MG [...] Test Name Value Interpretation Reference Range Facility Surgical Pathology Reporton 08-14-2023 Surgical Pathology Report (NOTE) Path Number: [id number] -- Diagnosis -- A. STOMACH, ANTRUM, BIOPSIES: - MILD TO MODERATE CHRONIC GASTRITIS. - HELICOBACTER PYLORI IMMUNOSTAIN (CONTROL APPROPRIATE) IS NEGATIVE FOR INFECTIOUS BACTERIA. B. GASTROESOPHAGEAL JUNCTION, BIOPSIES: - BENIGN PROXIMAL GASTRIC AND SQUAMOUS MUCOSA WITH MILD CHRONIC INFLAMMATION. - NEGATIVE FOR INTESTINAL METAPLASIA, DYSPLASIA AND MALIGNANCY. Porter Garner M.D. Electronically Signed Out sls/08/18/2023 Clinical Information Pre-Op Diagnosis: GASTROESOPHAGEAL REFLUX DISEASE, UNSPECIFIED WHETHER ESOPHAGITIS PRESENT Operative Findings: GASTRIC ANTRUM BIOPSY; GE JUNCTION Operation Performed: EGD WITH BIOPSIES mj Source of Specimen A: GASTRIC ANTRUM BIOPSY B: GE JUNCTION Gross Description A. GLADIS SANDOR, GASTRIC ANTRUM BIOPSY Received in formalin are three glez-white tissue fragments from 0.1 to 0.2 cm and are 0.4 x 0.1 x 0.1 cm in aggregate. Entirely 1cs. B. GLADIS PATTEN, GE JUNCTION Received in formalin are three glez-white tissue fragments from 0.1 to 0.3 cm and are 0.5 x 0.2 x 0.1 cm in aggregate. Entirely 1cs. noah Loving M.D./mj:08/15/2023 Microscopic Description A, B. Microscopic examination performed. Processing Lab: [address] [address] Interpretation Performed at [address] [address] SURGICAL PATHOLOGY CONSULTATION Patient Name: GLADIS PATTEN. Med Rec: [id number] [facility] ANATOMIC PATHOLOGY [address] [place] [id number] Normal [facility] XR pre/post mri xrayon 07-29 XR pre/post mri xray [facility] Main [place] [address] [place] [address] MRI Report Signed Patient: Gladis Patten MR#: [id number] 3 : 1950 Acct:[id number] Age/Sex: 72 / F ADM Date: 07/30/23 Loc: MR Room: Type: [facility] Attending Dr: James Quigley MD Copies to: James Quigley MD Ordering Provider: James Quigley MD Date of Service: 07/30/23 MR/MR lumbar spine wo con: LUMBAR STENOSIS ([id number]) XR/XR pre/post mri xray: LUMBAR STENOSIS MR [...] Miles Laughlin M.D.07/30/2023 4:39 PM Dictation Location: [place] [address] Transcribed By: [facility] 07/30/23 1639 Dictated By: Miles Laughlin II, MD 07/30/23 163 Signed By: 07/30/23 1639 Normal [facility] XR KNEE LT 1 [...] Gonsales MD on 05/13/2023 11:10 AM Normal [facility] Bacteria identified Cx Nom ( U)on 04-17-2023 Service comment (Unsp spec) [Interp] 10-50,000 ORGANISMS/mL NORMAL UROGENITAL GRISEL [facility] ALT No additional P-5'-P [Ca talytic activity/Vol]on 04-16-2023 ALT [Catalytic activity/Vol] 20 U/L Normal 0-31 [facility] Comment on above: Performed By: #### C JUANPABLO, 4-2, 1919-11, [facility], [address]8588-3 #### [facility] ([id number]) [address], [address] [place] [address] Ady 04-16-2023 AST [Catalytic activity/Vol] 19 U/L Normal 0-41 [facility] Comment on above: Performed By: #### C JUANPABLO, 1744-2, 1919-11, [facility], 55619-6 #### [facility] ([id number]) [address], [address] [place] [address] BASIC METABOLIC PANLon 04-16 Anion gap [Moles/Vol] 8 mmol/L Normal 5-15 [facility] Comment on above: Performed By: #### C BCA, 1744-2, 1919-11, BMP, 09061-6 #### [facility] ([id number]) [address], [facility] [address] [place] [address] Calcium [Mass/Vol] 9.2 mg/dL Normal 8.5-10.5 [facility] Comment on above: Performed By: #### Abhishek BCA, 1744-2, 1919-11, BMP, 27919-8 #### [facility] ([id number]) [address] [address] [place] [address] Chloride [Moles/Vol] 103 mmol/L Normal 98-109 [facility] Comment on above: Performed By: #### Abhishek GERONIMO, 1743-2, 1919-11, BMP, 89721-6 #### [facility] ([id number]) [address], [facility] [address] [place] [address] CO2 [Moles/Vol] 29 mmol/L Normal 22-32 [facility] Comment on above: Performed By: #### Abhishek BCA, 1743-2, 1919-11, BMP, 73104-6 #### [facility] ([id number]) [address] [address] [place] [address] Creatinine [Mass/Vol] 0.63 mg/dL Normal 0.40-1.00 [facility] Comment on above: Result Comment: METH OD TRACEABLE TO IDMS STANDARD Performed By: #### Abhishek BCA, 1744-2, 1919-11, BMP, 35130-7 #### [facility] ([id number]) [address], [facility] [address] [place] [address] eGFR (CKD-EPI) NON-RACE DEPENDENT >90 Normal >59 [facility] Comment on above: Result Comment: Reported eGFR is based on the CKD-EPI 2020 equation that does not use a race coefficient. Performed By: #### Abhishek GERONIMO, 1744-2, 1919-11, BMP, 98223-7 #### [facility] ([id number]) [address], [address] [place] [address] Glucose [Mass/Vol] 103 mg/dL High 65-99 [facility] Comment on above: Performed By: #### Abhishek GERONIMO, 1743-2, 1919-11, BMP, 32154-0 #### [facility] ([id number]) [address], [address] [place] [address] Potassium [Moles/Vol] 3.7 mmol/L Normal 3.5-5.0 [facility] Comment on above: Performed By: #### Abhishek GERONIMO, 4-2, 1919-11, BMP, 26652-4 #### [facility] ([id number]) [address], [address] [place] [address] Sodium [Moles/Vol] 140 mmol/L Normal 134-146 [facility] Comment on above: Performed By: #### Abhishek GERONIMO, 1743-05, 1919-11, BMP, 99320-3 #### [facility] ([id number]) [address] [address] [place] [address] Urea nitrogen [Mass/Vol] 17 mg/dL Normal 5-27 [facility] Comment on above: Performed By: #### Abhishek GERONIMO, 1743-2, 1919-11, BMP, 52546-3 #### [facility] ([id number]) [address], [address] [place] [address] CBC AND AUTO DIFFon 12-27-20 23 ABSOLUTE BASOPHIL 0.0 X10E9/L Normal 0.0-0.2 [facility] Comment on above: Performed By: #### Abhishek BCA, 1744-2, 1919-11, BMP, 74500-3 #### [facility] ([id number]) [address] [address] [place] [address] ABSOLUTE NEUTROPHIL 3.7 X10E9/L Normal 1.5-6.6 [facility] Comment on above: Performed By: #### Abhishek GERONIMO, 1743-05, 1919-11, BMP, 92056-4 #### [facility] ([id number]) [address], [address] [place] [address] Basophils/100 WBC (Bld) 0.3 % Normal [facility] Comment on above: Performed By: #### Abhishek GERONIMO, 1743-05, 1919-11, BMP, 71981-8 #### [facility] ([id number]) [address], [address] [place] [address] Eosinophils (Bld) [#/Vol] 0.1 10*3/uL Normal 0.0-0.4 [facility] Comment on above: Performed By: #### Abhishek GERONIMO, 1743-05, 1919-11, BMP, 06541-1 #### [facility] ([id number]) [address], [address] [place] [address] Eosinophils/100 WBC (Bld) 1.3 % Normal [facility] Comment on above: Performed By: #### Abhishek GERONIMO, 1743-05, 1919-11, BMP, 10923-5 #### [facility] ([id number]) [address], [address] [place] [address] Erythrocyte distribution width (RBC) [Ratio] 13.5 % Normal 11.5-15.0 [facility] Comment on above: Performed By: #### Abhishek GERONIMO, 1743-05, 1919-11, BMP, 72771-8 #### [facility] ([id number]) [address], [address] [place] [address] Hematocrit (Bld) [Volume fraction] 42.2 % Normal 35-47 [facility] Comment on above: Performed By: #### Abhishek GERONIMO, 1743-05, 1919-11, BMP, 93163-2 #### [facility] ([id number]) [address], [address] [place] [address] Hemoglobin (Bld) [Mass/Vol] 14.3 g/dL Normal 11.7-15.5 [facility] Comment on above: Performed By: #### Abhishek GERONIMO, 1743-2, 1919-11, BMP, 59891-4 #### [facility] ([id number]) [address] [facility] [address] [place] [address] Lymphocytes (Bld) [#/Vol] 1.3 10*3/uL Normal 1.0-3.5 [facility] Comment on above: Performed By: #### Abhishek GERONIMO, 1743-, 1919-11, BMP, 17146-9 #### [facility] ([id number]) [address], [facility] [address] [place] [address] Lymphocytes/100 WBC (Bld) 23.2 % Normal [facility] Comment on above: Performed By: #### Abhishek GERONIMO, 1743-05, 1919-11, BMP, 10924-6 #### [facility] ([id number]) [address], [address] [place] [address] MCH (RBC) [Entitic mass] 31.6 pg Normal 27-34 [facility] Comment on above: Performed By: #### Abhishek GERONIMO, 1743-, 1919-11, BMP, 86757-0 #### [facility] ([id number]) [address], [address] [place] [address] MCHC (RBC) [Mass/Vol] 33.8 g/dL Normal 32-36 [facility] Comment on above: Performed By: #### Abhishek GERONIMO, 4-2, 1919-11, BMP, 82194-9 #### [facility] ([id number]) [address], [address] [place] [address] MCV (RBC) [Entitic vol] 94 fL Normal 80-100 [facility] Comment on above: Performed By: #### Abhishek GERONIMO, 4-2, 1919-11, BMP, 31029-1 #### [facility] ([id number]) [address], [address] [place] [address] Monocytes (Bld) [#/Vol] 0.6 10*3/uL Normal 0-0.9 [facility] Comment on above: Performed By: #### Abhishek GERONIMO, 1744-2, 1919-11, BMP, 79776-1 #### [facility] ([id number]) [address], [address] [place] [address] Monocytes/100 WBC (Bld) 10.8 % Normal [facility] Comment on above: Performed By: #### Abhishek GERONMIO, 1743-2, 1919-11, BMP, 86837-4 #### [facility] ([id number]) [address], [address] [place] [address] Neutrophils/100 WBC (Bld) 64.4 % Normal [facility] Comment on above: Performed By: #### Abhishek GERONIMO, 1743-2, 1919-11, BMP, 08814-5 #### [facility] ([id number]) [address], [address] [place] [address] Platelet mean volume (Bld) [Entitic vol] 8.5 fL Normal 7-12 [facility] Comment on above: Performed By: #### Abhishek GERONIMO, 4-2, 1919-11, BMP, 39319-7 #### [facility] ([id number]) [address], [address] [place] [address] Platelets (Bld) [#/Vol] 233 10*3/uL Normal 150-450 [facility] Comment on above: Performed By: #### Abhishek GERONIMO, 1744-2, 1919-11, BMP, 57357-1 #### [facility] ([id number]) [address], [address] [place] [address] RBC COUNT 4.52 X10E12/L Normal 3.80-5.20 [facility] Comment on above: Performed By: #### Abhishek GERONIMO, 1744-2, 1919-11, BMP, 20553-3 #### [facility] ([id number]) [address], [address] [place] [address] WBC (Bld) [#/Vol] 5.7 10*3/uL Normal 4.0-11.0 [facility] Comment on above: Performed By: #### Abhishek GERONIMO, 1743-, 1919-11, BMP, 36532-0 #### [facility] ([id number]) [address], [address] [place] [address] HGB A1C (GLYCO-HGB)on 2022 Glucose [Mass/Vol] 117 mg/dL Normal [facility] Comment on above: Performed By: #### Abhishek GERONIMO, 1743-2, 1919-11, BMP, 06124-0 #### [facility] ([id number]) [address] [address] HbA1c (Bld) [Mass fraction] 5.7 % High 4.4-5.6 [facility] Comment on above: Result Comment: NOTE ADA Guidelines Result HgbA1c Normal : less than 5.7 % Prediabetes : 5.7 % to 6.4 % Diabetes : > 6.4 % Use with caution in patients with abnormal hemoglobin variants as the half-life of red blood cells and in vivo glycation rates are affected. Performed By: #### Abhishek GERONIMO, 1744-2, 1919-11, BMP, 37282-8 #### [facility] ([id number]) [address], [address] [place] [address] Lipid 1996 panelon 3 Cholesterol [Mass/Vol] 162 mg/dL Normal 150-200 [facility] Comment on above: Performed By: ###Sebastián Weiss BCA, 1743-2, 1919-11, BMP, 26274-5 #### [facility] ([id number]) [address], [address] [place] [address] Cholesterol in HDL [Mass/Vol] 64 mg/dL Normal >39 [facility] Comment on above: Result Comment: HDL <40 mg/dL - High Risk HDL > or = 40mg/dL- Desirable HDL >60 mg/dL - Negative Risk Performed By: ###Sebastián Weiss BCA, 2, 1919-11, JAYLAN, 32649-3 #### [facility] ([id number]) [address], [address] [place] [address] Cholesterol in LDL [Mass/Vol] 68 mg/dL Normal <130 [facility] Comment on above: Result Comment: LDL <100 mg/dL - Desirable LDL >160 mg/dL - High Risk Performed By: ###Sebastián Weiss BCA, 2, 1919-11, BMP, 67625-2 #### [facility] ([id number]) [address], [address] [place] [address] Cholesterol in VLDL [Mass/Vol] 30 mg/dL Normal 0-30 [facility] Comment on above: Performed By: ###Sebastián Weiss BCA, 4-2, 1919-11, BMP, 77728-5 #### [facility] ([id number]) [address], [address] [place] [address] CHOLESTEROL:HDL 2.5 Normal 1.0-5.0 [facility] Comment on above: Performed By: #### C BCA, 1744-2, 8, BMP, 42023-4 #### [facility] ([id number]) [address], [address] [place] [address] Triglyceride [Mass/Vol] 152 mg/dL High 27-150 [facility] Comment on above: Performed By: #### C BCA, 1744-2, 1919-11, [facility], 17856-6 #### [facility] ([id number]) [address], [address] [place] [address] URINALYSISon 04-16-2023 Bilirubin Ql (U) Negative Normal NEG [facility] BLOOD/HGB Negative Normal NEG [facility] Color (U) YELLOW Normal YELLOW [facility] Glucose Ql (U) Negative Normal NEG [facility] Ketones Ql (U) Negative Normal NEG [facility] Leukocyte esterase Test strip Ql (U) Negative Normal NEG [facility] Nitrite Ql (U) Negative Normal NEG [facility] pH (U) 6.5 [pH] Normal 5.0-8.5 [facility] Protein Ql (U) Negative Normal NEG [facility] Specific gravity (U) [Rel density] 1.006 Normal 1.003-1.035 [facility] TURBIDITY CLEAR Normal CLEAR [facility] Urobilinogen (U) [Mass/Vol] mg/dL Normal <1.1 [facility] URINE CULTUREon 04-16-2023 Bacteria identified Cx Nom (U) CULTURE RESULTS 10-50,000 ORGANISMS/mL NORMAL UROGENITAL GRISEL Normal [facility] Comment on above: Performed By: #### 6 30-4 #### [facility] ([id number]) [address], [address] [place] [address] Urinalysison 04-16-2023 Bilirubin Ql (U) Negative Negative^Ne g ative [facility] Color (U) YELLOW YELLOW^YELLO W [facility] Glucose (U) [Mass/Vol] Negative Negat светлана^Neg ative mg/dL [facility] Hemoglobin Auto test strip Ql (U) Negative Negative^Neg ative [facility] Ketones (U) [Mass/Vol] Negative Negat светлана^Neg ative mg/dL [facility] Leukocyte esterase Auto test strip Ql (U) Negative Negative^Neg ative [facility] Nitrite Auto test strip Ql (U) Negative Negative^Neg ative [facility] pH (U) 6.5 [pH] 5.0 - 8.5 [facility] Protein (U) [Mass/Vol] Negative Negat светлана^Neg ative mg/dL [facility] Specific gravity Refractometry automated (U) [Rel density] 1.006 1.003 - 1.035 [facility] Turbidity Ql (U) CLEAR CLEAR^CLEAR [facility] Urobilinogen Qn (U) NINF [facility] XR CHEST 2 VWSon 04-16-2023 XR CHEST [...] Bowden MD on 04/16/2023 10:02 AM Normal [facility] XR Chest PA and Lateralon HISTORY: A [...] Carlos Bowden MD on 04/16/2023 10:02 AM [facility] Carlos Bowden MD - 04/16/2023 HISTORY: A [...] Carlos Bowden MD on 04/16/2023 10:02 AM [facility] Radiology Study observation (narrative) [facility] XR Chest PA and LateralOrder ed By: Carlos Bowden on 04-16-2023 [facility] Work Phone: XR Femur and Tibia Views for leg lengthon 04-16-2023 Allan Gonsales M D - 04/16/2023 XR BONE LENGTH STUDY HISTORY: Preoperative evaluation. Leg length discrepancy. COMPARISON: None FINDINGS: Measurements explicitly not requested by ordering surgeon. No acute fracture, dislocation, or destructive osseous lesion within the latqe-di-kpsq. Orthopedic hardware of the right knee and [...] Allan Gonsales MD on 04/16/2023 2:41 PM [facility] Rad[facility] Study observation (narrative) [facility] XR Femur and Tibia Views for leg lengthOrdered By: Allan Gonsales on 04-16-2023 [facility] Work Phone: DEXA BONE DENSITY AXIAL SKEL ETONon 01-14-2023 DEXA BONE DENSITY AXIAL SKELETON EXAMINATION: BONE DENSITOMETRY 01/14/2023 9:25 am TECHNIQUE: A bone density dual x-ray absorptiometry (DXA) scan was performed of the lumbar spine and left hip on a [employer] system. COMPARISON: 01/10/2017 HISTORY: ORDERING SYSTEM PROVIDED [...] risk is performed using the [employer] FRAX calculator based on patient-reported risk factors. [...] Christopher Jean DO 01/14/23 Final result Normal [facility] [place] DIGITAL SCREEN PETRA Guadarrama 01-14-2023 [facility] [place] DIGITAL SCREEN BILATERAL EXAMINATION: SCREENING [...] to the patient regarding the results. The [employer] recommends annual mammograms for women 40 years and older. Interpreted by: Christopher Jean DO Signed by: Christopher Jean DO 01/14/23 Final result Normal [facility] ALT-SGPTon 11-05-2022 ALT [Catalytic activity/Vol] 19 U/L [...] Creatinine [Mass/Vol] 0.77 mg/dL Normal 0.60-1.30 [facility] GFR/1.73 sq M.predicted among non-blacks MDRD (S/P/Bld) [Vol rate/Area] 81 mL/min/{1.73_m2} Normal >60 [facility] Glucose [Mass/Vol] 99 mg/dL Normal 70-99 [facility] Potassium [Moles/Vol] 4.5 mmol/L Normal 3.5-5.4 [facility] Sodium [Moles/Vol] 138 mmol/L Normal 133-146 [facility] Urea nitrogen [Mass/Vol] 20 mg/dL [...] MCHC (RBC) [Mass/Vol] 34.1 g/dL Normal 31.0-36.0 [facility] MCV (RBC) [Entitic vol] 93.1 [...] [facility] Comment on above: Result Comment: [employer] GUIDELINES FOR HGB A1C: PREDIABETES/INCREASED [...] VLDL-CHOL, CALCULATED 30 mg/dL High <30 [facility] VITAMIN B12on 11-05-2022 Cobalamin (Vitamin B12) [Mass/Vol] 559 pg/mL Normal 200-950 [facility] VITAMIN D, 25 HYDROXYon 10-19 VITAMIN D, 25 HYDROXY 32 NG/ML Normal SEE BELOW [facility] Comment on above: Result Comment: NOTE: [...] . . . . NG/ML 30-100 [facility] [address] [place] [address] CLIA No. [id number] Accreditation No. [id number] Publications Distribution Clerk: Keke Islas M.D. H. pylori Antigenon 11-03-19 23 H. pylori Antigen Specimen Description .FECES Direct Exam NEGATIVE Report Status FINAL 11/02/2022 Normal [facility] Comment on above: Performed By: #### F HPY #### [place] [address] [place] [address] Chain Maker Machine: Naren Heck MD [facility] [address] [address] Chain Maker Machine: Mary Burgess MD MRI Brain w/ + [...] Electronically Signed in Other Vendor System) Normal [facility] MRI Orbits w/ + w/o Contrast on [...] Electronically Signed in Other Vendor System) Normal [facility] ALT-SGPTon 04-09-2022 ALT [Catalytic activity/Vol] 26 U/L Normal 5-40 [facility] AST-SGOTon 04-09-2022 AST-SGOT 25 U/L Normal 9-40 [facility] BASIC METABOLIC PANEL WITH G FRon 04-09-2022 Anion gap [Moles/Vol] 9.0 mmol/L Normal 7.0-16.0 [facility] Comment on above: Result Comment: Please note new reference range effective 2021 Calcium [Mass/Vol] 9.4 mg/dL Normal 8.5-10.5 [facility] Chloride [Moles/Vol] 101 mmol/L Normal 95-107 [facility] CO2 [Moles/Vol] 29 mmol/L Normal 19-31 [facility] Creatinine [Mass/Vol] 0.73 mg/dL Normal 0.60-1.30 [facility] GFR/1.73 sq M.predicted among non-blacks MDRD (S/P/Bld) [Vol rate/Area] 87 mL/min/{1.73_m2} Normal >60 [facility] Glucose [Mass/Vol] 110 mg/dL High 70-99 [facility] Potassium [Moles/Vol] 4.3 mmol/L Normal 3.5-5.4 [facility] Sodium [Moles/Vol] 139 mmol/L Normal 133-146 [facility] Urea nitrogen [Mass/Vol] 18 mg/dL Normal [...] MCHC (RBC) [Mass/Vol] 33.3 g/dL Normal 31.0-36.0 [facility] MCV (RBC) [Entitic vol] 93.0 fL [...] Inc Comment on above: Result Comment: [facility] [address] [place] [address] CLIA No. [id number] CAP Accreditation No. [id number] Publications Distribution Clerk: Keke Islas M.D. HbA1c (Bld) [Mass fraction] 5.9 % High 4.2-5.6 [facility] Comment on above: Result Comment: [employer] GUIDELINES FOR HGB A1C: PREDIABETES/INCREASED [...] CALCULATED 73 mg/dL Normal <100 [facility] Triglyceride [Mass/Vol] 92 mg/dL Normal <150 [facility] VLDL-CHOL, CALCULATED 18 mg/dL Normal <30 [facility] KENYA DIGITAL SCREEN W CAD TIARA ATERALon 06-09-2019 No mammographic evidence for malignancy. BIRADS: BIRADS - CATEGORY 1 Negative, no evidence of malignancy. Normal interval follow-up is recommended in 12 months. OVERALL ASSESSMENT - NEGATIVE A letter of notification will be sent to the patient regarding the results. The [employer] recommends annual mammograms for women 40 years and older. [facility] BILATERAL DIGITAL SCREENING MAMMOGRAM, 06/09/2019 8:16 [...] abnormality is identified on the tomosynthesis images. [facility] AL Glenn, Mhpn Incoming Radiant Results From [employer] - 06/09/2019 9:56 AM EST EXAMINATION: BILATERAL [...] to the patient regarding the results. [employer] recommends annual mammograms for women 40 years and older. [facility] Urinalysis With MicroscopicO rdered By: Shanice Niño on 04-27-2019 - [email or web address] Phone: Amorphous, UA NOT REPORTED None [employer] Work Phone: Bacteria, UA 1+ Abnormal None [email or web address] Phone: Bilirubin Urine Negative NEGATIVE [employer] Work Phone: Casts UA NOT REPORTED /LPF [email or web address] Phone: Color, UA YELLOW YELLOW [email or web address] Phone: Crystals UA NOT REPORTED None /HPF [facility] Work Phone: Epithelial Cells UA 2 TO 5 [facility] Work Phone: Glucose, Ur Negative NEGATIVE [facility] [employer] Work Phone: Interpretation and review of laboratory results Abnormal [facility] [employer] Work Phone: Ketones Ql (U) Negative NEGATIVE [facility] Work Phone: Leukocyte esterase Test strip Ql (U) Negative NEGATIVE [facility] Work Phone: Mucus, UA NOT REPORTED None [facility] Work Phone: Nitrite, Urine Negative NEGATIVE [facility] Work Phone: Other Observations UA NOT REPORTED NOT REQ. [facility] Work Phone: pH, UA 6.0 [facility] Work Phone: Protein, UA Negative NEGATIVE [facility] Work Phone: RBC, UA None [facility] Work Phone: Renal Epithelial, Urine NOT REPORTED 0 /HPF [facility] [employer] Work Phone: Specific [place], UA 1.020 [facility] [employer] Work Phone: Trichomonas, UA NOT REPORTED None [facility] [employer] Work Phone: Turbidity UA CLEAR CLEAR [facility] [employer] Work Phone: Urinalysis Comments NOT REPORTED [facility] [employer] Work Phone: Urine Hgb Negative NEGATIVE [facility] [employer] Work Phone: Urobilinogen, Urine Normal Normal [facility] [employer] Work Phone: WBC, UA 2 TO 5 [facility] [employer] Work Phone: Yeast, UA NOT REPORTED None [facility] Work Phone: Vital Signs Date Time Vital Sign Value Performing Clinician Faci lity 07-30-2023 14:44-0400 Body height 152.4 cm MD Elsie Jeffrey Work Phone: [facility] 07-30-2023 14:44-0400 Body weight 94.34 kg MD Elsie Jeffrey Work Phone: [facility] 04-16-2023 09:13-0500 Body height 152.4 cm [facility] 04-16-2023 09:13-0500 Body mass index (BMI) [Ratio] 41.79 kg/m2 [facility] 04-16-2023 09:13-0500 Body weight 97.07 kg [facility] 2 [facility] 03-08-2021 11:15-0500 Body height 152.4 cm Mary Duglasarnaud Other [employer] Other 03-08-2021 11:15-0500 Body mass index (BMI) [Ratio] 40.62 kg/m2 Mary Duglasarnaud Other [employer] Other 03-08-2021 11:15-0500 Body weight 94.35 kg Mary Tito Other [employer] Other 01-18-2021 12:00-0400 Body height 152.4 cm Mary Duglasarnaud Other [employer] Other 01-18-2021 12:00-0400 Body mass index (BMI) [Ratio] 41.2 kg/m2 Mary Francis Other [employer] Other 01-18-2021 12:00-0400 Body weight 95.71 kg Mary Ardonkes Other [employer] Other Encounters Encounter Date Encounter Type Care Provider Facility Start: 08-19-2023 End: 08-19-2023 ambulatory ANGEL PICKETT Not Available Start: 08-14-2023 End: 08-14-2023 ambulatory CARMEN Granados [facility] Start: 08-05-2023 End: 08-05-2023 ambulatory DAPHNE CONWAY Not Available Start: 08-04-2023 End: 08-04-2023 ambulatory FLAVIO SINGLETON Not Available Start: 07-30-2023 End: 07-30-2023 ambulatory Elsie Jeffrey Facility:[facility] Start: 07-30-2023 End: 07-30-2023 ambulatory MD Elsie Jeffrey Work Phone: [facility] Work Phone: Start: 07-30-2023 End: 07-30-2023 Patient encounter procedure MD Elsie Jeffrey Work Phone: [facility] [place] Work Phone: Start: 07-14-2023 End: 07-15-2023 ambulatory James Quigley MD Facility:[facility] Start: 06-23-2023 End: 06-24-2023 ambulatory FLAVIO SINGLETON Not Available Start: 06-02-2023 Bamboo flowsheet Flavio Singleton REFRIGERATION SYSTEMS INSTALLER Work Phone: [facility] Start: 06-02-2023 Bamboo flowsheet Flavio Singleton REFRIGERATION SYSTEMS INSTALLER Work Phone: [facility] Start: 06-02-2023 End: 06-02-2023 ambulatory FLAVIO SINGLETON Not Available Start: 06-02-2023 End: 06-02-2023 Postop follow up visit related to original px Flavio Singleton REFRIGERATION SYSTEMS INSTALLER Work Phone: [facility] Comment on above: Status post total le ft knee replacement (Primary Dx) Start: 05-27-2023 End: 05-27-2023 ambulatory FLAVIO SINGLETON Not Available Start: 05-22-2023 End: 05-22-2023 ambulatory FLAVIO SINGLETON Not Available Start: 05-22-2023 End: 05-22-2023 Postop follow up visit related to original px Flavio Singleton REFRIGERATION SYSTEMS INSTALLER Work Phone: [facility] Comment on above: Status post total le ft knee replacement (Primary Dx) Start: 05-15-2023 End: 05-15-2023 ambulatory FLAVIO SINGLETON Not Available Start: 05-15-2023 End: 05-15-2023 ambulatory MARY SINGH [facility] Start: 05-13-2023 End: 05-15-2023 ambulatory [facility] Start: 05-13-2023 End: 05-14-2023 ambulatory [facility] Start: 05-08-2023 End: 05-09-2023 ambulatory [facility] Start: 05-01-2023 End: 05-04-2023 ambulatory [facility] Start: 04-30-2023 End: 05-03-2023 ambulatory [facility] Start: 04-30-2023 Encounter for preprocedural cardiovascular examination [facility] Start: 04-28-2023 End: 04-28-2023 ambulatory JENNIFER WHITAKER Not Available Start: 04-16-2023 End: 04-17-2023 ambulatory [facility] Start: 04-16-2023 Encounter for other preprocedural examination [facility] Start: 04-16-2023 End: 04-16-2023 Patient encounter procedure [facility] Comment on above: Preop examination (P rimary Dx); Hypertension, unspecified type; Chronic obstructive pulmonary disease, unspecified COPD type ([facility]-H[facility]); Urinary frequency; Osteoarthritis of left knee, unspecified osteoarthritis type Start: 04-16-2023 End: 04-16-2023 Preprocedural examination done Pm 2 [facility] Start: 04-01-2023 End: 04-01-2023 ambulatory DAPHNE CONWAY Not Available Start: 01-14-2023 End: 01-17-2023 [facility] Start: 12-11-2022 End: 12-12-2022 ambulatory ELSIE JEFFREY [facility] Start: 11-01-2022 End: 11-02-2022 ambulatory [facility] Start: 09-15-2022 End: 09-16-2022 ambulatory Elsie Jeffrey MD Facility:[facility] Start: 06-19-2022 End: 06-20-[address] MARY CHRISTIAN Facility:[facility] Start: 10-31-2021 End: 11-01-2021 ambulatory KAVITHA PARSONS Facility:[facility] Start: 10-30-2021 End: 10-30-2021 Subsequent hospital visit by physician Elsie Jeffrey MD Work Phone: [facility] Comment on above: Nevus Start: 06-11-2021 End: 06-11-2021 ambulatory Mary Francis Other [employer] Other Start: 06-11-2021 Telephone encounter Mary Francis [facility] Start: 05-07-2021 End: 05-07-2021 ambulatory Mary Francis Other [employer] Other Start: 05-07-2021 Telephone encounter Mary Francis [facility] Start: 03-08-2021 End: 03-08-2021 ambulatory Mary Francis Other [employer] Other Start: 03-08-2021 Office outpatient vi sit 15 minutes Mary Francis [facility] Start: 01-18-2021 Office outpatient vi sit 25 minutes Mary Francis [facility] Start: 12-11-2020 End: 12-13-2020 Subsequent hospital visit by physician [facility] Mammography Comment on above: Screening mammogram, encounter for Start: 06-09-2019 End: 06-11-2019 Subsequent hospital visit by physician [facility]ammography Comment on above: Visit for screening mammogram Start: 04-27-2019 End: 04-27-2019 Subsequent hospital visit by physician Elsie Jeffrey MD Work Phone: [facility] Comment on above: Dysuria Start: 04-26-2019 End: 04-26-2019 Subsequent hospital visit by physician Elsie Jeffrey MD Work Phone: [facility] Procedures Date Procedure Procedure Detail Performing Clinician Start: 07-30-2023 XR pre/post mri xray MD Elsie Lorenz s Work Phone: Start: 07-30-2023 MR lumbar spine wo con MD Elsie ortiz Work Phone: Start: 04-28-2023 H/O: artificial joint History of right ankle joint replacement Flavio Singleton REFRIGERATION SYSTEMS INSTALLER Work Phone: Start: 01-14-2023 Mammography Flavio Singleton NP Work Phone: Start: 06-09-2019 Screening digital breast tomosynthesis bi Elsie Jeffrey Work Phone: Start: 04-27-2019 Urnls dip stick/tablet reagent auto microscopy Shanice Niño GEOMETRICIAN - CNM Work Phone: Start: 07-01-2012 Fabienne Jeffrey MD Work Phone: Plan of Treatment Date Care Activity Detail Author Start: 04-16-2024 Adult BMI Screening Adult BMI Screen ing [facility] Start: 04-16-2024 Tobacco Screening Tobacco Screening [facility] Start: 01-15-2024 Screening for malign ant neoplasm of breast Mammogram [facility] Start: 01-09-2024 DTaP,Tdap and Td Vaccines (2 - Td or Tdap) DTaP,Tdap and Td Vaccines (2 - Td or Tdap) [facility] Start: 01-09-2024 DTaP/Tdap/Td vaccine (2 - Td or Tdap) DTaP/Tdap/Td vaccine (2 - Td or Tdap) [facility] Start: 01-09-2024 DTaP/Tdap/Td vaccine (2 - Td) DTaP/Tdap/Td vaccine (2 - Td) [facility] Work Phone: Start: 08-19-2023 End: 08-19-2023 Patient encounter procedure 08/19/2023 8:35 AM EDT Office Visit [facility] [address] [place] [address] Angel Pickett MD [address] [place] [address] [facility] Start: 08-05-2023 End: 08-05-2023 Patient encounter procedure 08/05/2023 8:45 AM EDT Procedure Visit [facility] [address] [place] [phone] Daphne Conway, DPM [address] [place], [place] [id number] [facility] Start: 06-23-2023 End: 06-23-2023 Patient encounter procedure 06/23/2023 2:00 PM EST Office Visit [facility] [address] [facility] [phone] Flavio Singleton, REFRIGERATION SYSTEMS INSTALLER [address] [facility] [address] [facility] Start: 06-02-2023 End: 06-02-2023 Patient encounter procedure 06/02/2023 9:45 AM EST Office Visit [facility] [address] [facility] [phone] Flavio Singleton, REFRIGERATION SYSTEMS INSTALLER [address] [place] [address] Arrived [facility] Comment on above: Arrived Start: 05-27-2023 End: 05-27-2023 Patient encounter procedure 05/27/2023 9:30 AM EST Office Visit [facility] [address] [place] [phone] Jennifer Whitaker, PA [address] [facility] [address] [place] [address] [facility] Start: 05-13-2023 End: 05-13-2023 Admission to same day surgery center 05/13/2023 7:45 AM EST - 05/13/2023 11:00 AM EST [facility] [address] [place] [phone] Freddy Badillo Jr., DO [address] [facility] [address] [place] [address] REPLACEMENT TOTAL JOINT KNEE [12865 (CPT )] [facility] Comment on above: REPLACEMENT TOTAL JASPER INT KNEE [13253 (CPT )] Start: 05-13-2023 End: 05-13-2023 Arthrp kne condyle&platu medial&lat compartments REPLACEMENT TOTAL JOINT KNEE left knee degenerative joint disease 05/13/2023 7:45 AM EST [facility] Start: 05-13-2023 Subsequent hospital visit by physician 05/13/2023 7:45 AM EST Hospital Encounter [facility] [address] [place] [phone] Freddy Badillo Jr., DO [address] [facility] [address] [place] [address] [facility] Start: 05-05-2023 End: 04-15-2024 Crossmatch RBC Crossmatch RBC Blood Bank Routine Preop examination Hypertension, unspecified type Chronic obstructive pulmonary disease, unspecified COPD type (CMS-HCC) Urinary frequency Expected: 05/05/2023, Expires: 04/15/2024 [facility] Comment on above: Expected: 05/05/2023 , Expires: 04/15/2024 Start: 05-05-2023 End: 04-15-2024 Type and screen(includes indirect lisa) Type and screen(includes indirect lisa) Blood Bank Routine Preop examination Hypertension, unspecified type Chronic obstructive pulmonary disease, unspecified COPD type (CMS-HCC) Urinary frequency Expected: 05/05/2023, Expires: 04/15/2024 [facility] Work Phone: Comment on above: Expected: 05/05/2023 , Expires: 04/15/2024 Start: 12-20-2022 COVID-19 Vaccine ( season) COVID-19 Vaccine () [facility] Start: 12-11-2022 Screening for malign ant neoplasm of breast Breast cancer screen [facility] [employer] Start: 07-01-2022 Screening for malign ant neoplasm of colon [facility] Start: 04-19-2022 End: 04-19-2022 Patient encounter procedure 04/19/2022 Office Visit Internal Medicine Elsie Jeffrey MD [address] [place], [place] [phone] Wesley Jeffrey [facility] Inc Start: 04-17-2022 Annual Wellness Visi t (AWV) Annual Wellness Visit (AWV) [facility] Enlightened Lifestyle [facility] Start: 04-16-2022 Depression Screen Depression Screen [facility] Start: 04-09-2022 Hemoglobin A1c measurement A1C test (Diabetic or Prediabetic) [facility] Start: 04-09-2022 Lipid panel Lipids [facility] Start: 12-20-2021 Influenza vaccination Flu vaccine (# 1) [facility] Start: 11-09-2021 End: 11-09-2021 Patient encounter procedure 11/09/2021 Office Visit Internal Medicine Elsie Jeffrey MD [address] [place], [place] [phone] Wesley [facility] Inc Start: 09-26-2021 Creatinine [facility] Work Phone: Start: 09-26-2021 Hemoglobin A1c measurement A1C test (Diabetic or Prediabetic) [facility] Work Phone: Start: 09-26-2021 Lipid panel Lipid screen [facility] Work Phone: Start: 09-26-2021 Potassium monitoring Potassium monit oring [email or web address] Phone: Start: 06-09-2021 Breast cancer screen Breast cancer s [place], [place] Start: 06-09-2021 Screening for malign ant neoplasm of breast Breast cancer screen [email or web address] Phone: Start: 04-16-2021 End: 04-16-2021 Patient encounter procedure 04/16/2021 Office Visit Internal Medicine Elsie Jeffrey MD [address] [place] [address] Wesley [facility] Inc Start: 04-11-2021 Annual Wellness Visi t (AWV) Annual Wellness Visit (AWV) [email or web address] Phone: Start: 12-20-2020 Influenza vaccination Flu vaccine (# 1) [email or web address] Phone: Start: 12-04-2020 Shingles Vaccine (3 of 3) Shingles Vaccine (3 of 3) [email or web address] Phone: Start: 05-15-2020 Breast cancer screen [facility] [email or web address] Phone: Start: 04-27-2020 Shingles Vaccine (2 of 3) Shingles Vaccine (2 of 3) [email or web address] Phone: Comment on above: Postponed from 06/16 (Unavailable) Start: 04-10-2020 End: 04-10-2020 Office Visit 04/10/2020 Office Visit Internal Medicine Elsie Jeffrey MD [address] [place] [address] Wesley [facility] Inc Start: 04-06-2020 Annual Wellness Visi t (AWV) Annual Wellness Visit (AWV) [facility] [place] Start: 04-05-2020 Annual Wellness Visi t (AWV) Annual Wellness Visit (AWV) [email or web address] Phone: Start: 03-30-2020 A1C test (Diabetic o r Prediabetic) A1C test (Diabetic or Prediabetic) [email or web address] Phone: Start: 03-30-2020 Creatinine monitoring Creatinine mon itoring [email or web address] Phone: Start: 03-30-2020 Lipid screen Lipid screen [employer] Phone: Start: 03-30-2020 Potassium monitoring Potassium monit oring [email or web address] Phone: Start: 02-09-2020 Colon cancer screen colonoscopy Colon cancer screen colonoscopy [email or web address] Phone: Start: 10-18-2019 End: 10-18-2019 Office Visit 10/18/2019 Office Visit Internal Medicine Elsie Jeffrey MD [address] [place] [address] Wesley Jeffrey MD [facility] Start: 06-09-2019 End: 06-09-2019 Patient encounter procedure 06/09/2019 Appointment Radiology [facility] Start: 04-27-2019 End: 04-27-2019 Patient encounter procedure 04/27/2019 Office Visit Obstetrics and Gynecology Shanice Niño, GEOMETRICIAN - CN[address] [place] [address] [place] [phone] [employer] Start: 2013 Fall Risk Screening Fall Risk Screen ing [employer] Start: 06-16-2013 Shingles Vaccine (2 of 3) Shingles Vaccine (2 of 3) [email or web address] Phone: Start: 1993 Screening for malign ant neoplasm of colon [facility] [employer] Start: 1966 Adult BMI Follow Up Plan Adult BMI Follow Up Plan [employer] Start: 1960 Depression Screening Depression Scre ening [employer] Start: 1948 Medicare Annual Wellness Visit Medicare Annual Wellness Visit [employer] Start: 08-12-1949 Screening for malign ant neoplasm of colon [facility] End: 04-27-2019 Bacteria identified in Urine by Culture Urine Culture Microbiology Routine Dysuria 1 Occurrences starting 04/27/2019 until 04/27/2019 [email or web address] Phone: Comment on above: 1 Occurrences starti ng 04/27/2019 until 04/27/2019 Bacteria identified in Urine by Culture Urine Culture Microbiology Routine Dysuria 04/27/2019 12:04 PM EST [email or web address] Phone: End: 12-11-2020 KENYA DIGITAL SCREEN W OR WO CAD BILATERAL KENYA DIGITAL SCREEN W OR WO CAD BILATERAL Imaging Routine Screening mammogram, encounter for 1 Occurrences starting 12/11/2020 until 12/11/2020 [email or web address] Phone: Comment on above: 1 Occurrences starti ng 12/11/2020 until 12/11/2020 End: 12-11-2020 KENYA MILAGRO DIGITAL SCREEN BILATERAL KENYA MILAGRO DIGITAL SCREEN BILATERAL Imaging Routine Screening mammogram, encounter for 1 Occurrences starting 12/11/2020 until 12/11/2020 [email or web address] Phone: Comment on above: 1 Occurrences starti ng 12/11/2020 until 12/11/2020 KENYA MILAGRO DIGITAL SCR EEN BILATERAL KENYA MILAGRO DIGITAL SCREEN BILATERAL Imaging Routine Screening mammogram, encounter for 12/11/2020 12:14 PM EDT [email or web address] Phone: End: 10-30-2021 Surgical Pathology Surgical Pathology Lab Routine Nevus 1 Occurrences starting 10/30/2021 until 10/30/2021 [employer] Phone: Comment on above: 1 Occurrences starti ng 10/30/2021 until 10/30/2021 End: 10-30-2021 SURGICAL PATHOLOGY REPORT SURGICAL PATHOLOGY REPORT Lab Routine Once for 1 Occurrences starting 10/30/2021 until 10/30/2021 [employer] Phone: Comment on above: Once for 1 Occurrenc es starting 10/30/2021 until 10/30/2021 Immunizations Immunization Date Immunization Notes Care Provider Yuliana brown 09-27-2023 Influenza, Seasonal, Quadrivalent, Adjuvanted Flavio Singleton REFRIGERATION SYSTEMS INSTALLER Work Phone: [facility] 01-18-2022 Moderna Bivalent Booster Vaccination Flavio Singleton REFRIGERATION SYSTEMS INSTALLER Work Phone: [facility] 01-09-2022 Influenza, Seasonal, Quadrivalent, Adjuvanted Flavio Singleton REFRIGERATION SYSTEMS INSTALLER Work Phone: [facility] 12-20-2020 Influenza, Quadv, adjuvanted, 65 yrs +, IM, PF (Fluad) Elsie Jeffrey MD Work Phone: [facility] [employer] Work Phone: 12-20-2020 zoster vaccine recombinant Elsie Jeffrey MD Work Phone: [facility] Work Phone: 10-09-2020 zoster vaccine recombinant Elsie Jeffrey MD Work Phone: [facility] Work Phone: 06-14-2020 COVID-19 Vaccine Pfi zer - Documentation Purposes Only Mary Francis Other [facility] 05-24-2020 COVID-19 Vaccine Pfi zer - Documentation Purposes Only Mary Francis Other [facility] 12-15-2019 influenza virus vaccine, unspecified formulation [facility] Work Phone: 12-15-2019 influenza, injectabl e, quadrivalent, preservative free Flavio Singleton REFRIGERATION SYSTEMS INSTALLER Work Phone: [facility] 12-15-2019 Influenza, Quadv, adjuvanted, 65 yrs +, IM, PF (Fluad) [facility] Work Phone: 01-23-2019 Seasonal trivalent influenza vaccine, adjuvanted, preservative free Elsie Jeffrey MD Work Phone: [facility] [employer] Work Phone: 01-19-2019 influenza virus vaccine, unspecified formulation Flavio Singleton NP Work Phone: [facility] 01-19-2019 influenza, injectabl e, quadrivalent, preservative free Flavio Franck REFRIGERATION SYSTEMS INSTALLER Work Phone: [facility] 02-05-2018 influenza virus vaccine, unspecified formulation Elsie Jeffrey MD Work Phone: [facility] 02-05-2018 Seasonal trivalent influenza vaccine, adjuvanted, preservative free Flavio Singleton REFRIGERATION SYSTEMS INSTALLER Work Phone: [facility] 01-27-2018 influenza, injectabl e, quadrivalent, preservative free Flavio Singleton REFRIGERATION SYSTEMS INSTALLER Work Phone: [facility] 01-19-2017 influenza, injectabl e, quadrivalent, preservative free Flavio Singleton REFRIGERATION SYSTEMS INSTALLER Work Phone: [facility] 01-17-2017 influenza virus vaccine, unspecified formulation Elsie Jeffrey MD Work Phone: [facility] 01-17-2017 influenza, seasonal, injectable Flavio Singleton REFRIGERATION SYSTEMS INSTALLER Work Phone: [facility] 01-02-2017 Seasonal trivalent influenza vaccine, adjuvanted, preservative free Flavio Franck REFRIGERATION SYSTEMS INSTALLER Work Phone: [facility] 02-13-2016 pneumococcal polysaccharide vaccine, 23 valent Elsie Jeffrey MD Work Phone: [facility] Work Phone: 01-20-2016 pneumococcal polysaccharide vaccine, 23 valent [facility] Work Phone: 01-20-2016 seasonal influenza, intradermal, preservative free Flavio Singleton REFRIGERATION SYSTEMS INSTALLER Work Phone: [facility] 01-09-2016 Influenza Vaccine, unspecified formulation Elsie Jeffrey MD Work Phone: [facility] Work Phone: 01-09-2016 influenza virus vaccine, unspecified formulation Flavio Franck REFRIGERATION SYSTEMS INSTALLER Work Phone: [facility] 01-09-2016 influenza, high dose seasonal, preservative-free Flavio Franck REFRIGERATION SYSTEMS INSTALLER Work Phone: [facility] 02-06-2015 influenza, high dose seasonal, preservative-free Flavio Singleton NP Work Phone: [facility] 02-06-2015 pneumococcal conjuga te vaccine, 13 valent Flavio Singleton NP Work Phone: [facility] 01-19-2015 Influenza Vaccine, unspecified formulation Elsie Jeffrey MD Work Phone: [facility] Work Phone: 01-19-2015 influenza virus vaccine, unspecified formulation Flavio Singleton NP Work Phone: [facility] 01-19-2015 pneumococcal conjuga te vaccine, 13 valent Elsie Jeffrey MD Work Phone: [facility] Work Phone: 01-08-2014 tetanus toxoid, redu dona diphtheria toxoid, and acellular pertussis vaccine, adsorbed Elsie Jeffrey MD Work Phone: [facility] 04-21-2013 zoster vaccine, live Michel Jeffrey MD Work Phone: [facility] Work Phone: 03-14-2009 novel [id number], preservative-free, injectable Flavio Singleton NP Work Phone: [facility] Payers Date Payer Category Payer Self-pay [id number] 2014 Medicare MEDICARE MEDICAR E PART A AND B xxxxxxxxxxx 2014-Present [phone] [address] [address] [place] [address] xxxxxxxxxxx [id number] 2014 Private Health Insurance [employer] SUPP xxxxxxxxxx 2014-Present [phone] [address] [place] [address] xxxxxxxxxx [id number] .[id number] 2014 Private Health Insurance 1.2 .[id number] .7.3.313218.315 2014 Private Health Insurance [id number] 2014 Medicare [id number]. 1.13.424.2 .[id number] 1959 Medicare [id number] 1.2.840.613070.1.13.239.2 .7.3.803185.[address] [facility] [id number] 1.2.840.765217.1.13.239.2 .7.3.360514.315 1948 Unknown [id number] 2.16.840.1.403289.3.579.2 .593 1948 Unknown [id number] 2.16.840.1.335756.3.579.2 .593 1948 Unknown [id number] 2.16.840.1.579205.3.579.2 .1286 1948 Unknown [id number] 2.16.840.1.149686.3.579.2 .1286 1948 Unknown [id number] 2.16.840.1.680567.3.579.2 .128 1948 Unknown [id number] 2.16.840.1.885173.3.579.2 .1286 1948 Unknown [id number] 2.16.840.1.336899.3.579.2 .128 1948 Unknown [id number] 2.16.840.1.492751.3.579.2 .1286 1948 Unknown [id number] 2.16.840.1.538849.3.579.2 .1286 1948 Unknown [id number] 2.16.840.1.591007.3.579.2 .1286 1948 Unknown [id number] 2.16.840.1.225392.3.579.2 .1286 1948 Unknown [id number] 2.16.840.1.395148.3.579.2 .1286 1948 Unknown [id number] 2.16.840.1.438173.3.579.2 .196 1948 Unknown [id number] 2.16.840.1.809322.3.579.2 .196 1948 Unknown [id number] 2.16.840.1.332832.3.579.2 .173 1948 Unknown [id number] 2.16.840.1.725612.3.579.2 .173 1948 Unknown [id number] 2.16.840.1.550701.3.579.2 .173 1948 Unknown [id number] 2.16.840.1.643939.3.579.2 .173 1948 Unknown [id number] 2.16.840.1.412208.3.579.2 .173 1948 Unknown [id number] 2.16.840.1.349838.3.579.2 .173 1948 Unknown [id number] 2.16.840.1.270681.3.579.2 .173 1948 Unknown [id number] 2.16.840.1.817486.3.579.2 .173 1948 Unknown [id number] 2.16.840.1.977645.3.579.2 .173 1948 Unknown [id number] 2.16.840.1.117147.3.579.2 .1259 1948 Unknown [id number] 2.16.840.1.982345.3.579.2 .1259 1948 Unknown [id number] 2.16.840.1.924556.3.579.2 .1258 1948 Unknown [id number] 2.16.840.1.864087.3.579.2 .9 1948 Unknown [id number] 2.16.840.1.870396.3.579.2 .1258 1948 Unknown [id number] 2.16.840.1.995635.3.579.2 .1258 1948 Unknown [id number] 2.16.840.1.727076.3.579.2 .1258 1948 Unknown [id number] 2.16.840.1.101113.3.579.2 .9 1948 Unknown [id number] 2.16.840.1.240817.3.579.2 .1258 1948 Unknown [id number] 2.16.840.1.785843.3.579.2 .1258 1948 Unknown [id number] 2.16.840.1.591490.3.579.2 .125 Unknown [id number] 2.16.840.1.223961.3.579.2 .531 Social History Date Type Detail Facility Start: 04-27-2019 End: 11-14-2022 Tobacco smoking status [facility] Former smoker [email or web address] Phone: Start: 04-21-1968 End: 09-19-1972 History of tobacco use Current smoker [email or web address] Phone: Start: 04-27-2019 End: 06-02-2023 Cigarettes smoked current (pack per day) - Reported [email or web address] Phone: Start: 04-27-2019 End: 06-02-2023 Alcohol intake Current drinker of alcohol (finding) [email or web address] Phone: Start: 02-05-2012 Alcohol Comment socially [employer] [facility] Work Phone: Start: 1950 Sex Assigned At Not on file [employer] Phone: Start: 12-11-2020 End: 11-14-2022 Tobacco use and exposure Never used [employer] Start: 10-05-2020 History 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 [email or web address] Phone: Start: 10-05-2020 End: 04-16-2021 History 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 [employer] Work Phone: Start: 07-12-2019 History SDOH Transpo rt Med 2 [email or web address] Phone: Start: 1950 Sex Assigned At Female M [employer] Phone: Exposure to SARS-CoV -2 (event) Not sure [employer] Start: 04-16-2023 End: 06-02-2023 Sex Assigned At [facility] [employer] Other Start: 04-16-2021 History SDOH Financial 5 [facility] [employer] Work Phone: Housing Instability Unknown [facility] Start: 04-16-2023 Tobacco Comment quit in 1970s [facility] Start: 07-21-[address] [facility] [place] Start: 04-21-1968 End: 09-19-1972 History of tobacco use Cigarette Smoker [facility] Start: 11-13-2022 Tobacco Comment Stopped smokin years [facility] Start: 11-14-2022 Alcohol Comment Less than 1 per week [facility] Start: 04-25-2017 Tobacco smoking stat us NHIS Never smoked tobacco (finding) [facility] Medical Equipment Procedure Code Equipment Code Equipment Origin al Text Equipment Identifier Dates Cmnt Bn Bio 40gm Rpl [id number] - Sna - [id number] Start: 08-11-2018 Cmpt Ptlr 32mm N xgn Alply Rpl [id number] + [id number] + [id number] - Sna - [id number] Start: 08-11-2018 Plt Tib [id number] Nxgn Kn Cmnt Rpl [id number] + [id number] - Sna - [id number] Start: 08-11-2018 Clinical Notes 01-18-2021 to 06-02-2023 Flavio Singleton, SANTO - 06/02/2023 9:45 AM SUSANGrangina Singleton, SANTO - 05/22/2023 11:00 AM ESTPatient Instructions Note [...] develop for requiring urgent evaluation. 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 She will call with any signs of infection. Questions answered in laymen terms at the bedside. The diagnosis, home exercise plan and any ongoing restrictions/ recommendations reviewed. If unable to be reached in office, I recommend evaluation at nearest Emergency Room if any symptoms worsened or new symptoms develop for requiring urgent evaluation. Flavio Singleton GEOMETRICIAN-PRODUCTION SUPERVISOR OFF SHIFT documented in this encounter [facility] 04-16-2023 Note XR BONE LENGTH STUDY XR BONE LENGTH STUDY HISTORY: Preoperative evaluation. Leg length discrepancy. COMPARISON: None FINDINGS: Measurements explicitly not requested by ordering surgeon. No acute fracture, dislocation, or destructive osseous lesion within the [id number]. Orthopedic hardware of the right knee and [...] Allan Gonsales MD on 04/16/2023 2:41 PM [facility] 04-16-2023 Note XR BONE LENGTH STUDY HISTORY: Preoperative evaluation. Leg length discrepancy. COMPARISON: None FINDINGS: Measurements explicitly not requested by ordering surgeon. No acute fracture, dislocation, or destructive osseous lesion within the [id number]. Orthopedic hardware of the right knee and [...] Allan Gonsales MD on 04/16/2023 2:41 PM [facility] 04-16-2023 Instructions Radhika Ocampo RN - 04/16/2023 [...] in at the main lobby of the [facility]- registration desk is straight ahead as soon as you walk in. Tell them you are here for surgery. 2. If you have a Living Will/Durable Power of Medical Grade Shoemaker for Health Care that is not on [...] after you have bathed. 5. NO nail sri lankan/acrylic on at least one finger. If you are having a hand, wrist or foot surgery then all nail sri lankan and artificial/acrylic nails must be removed from [...] please call the [facility] office at [phone], Mon.-Fri. 7 a.m.-3 p.m. Leave a voicemail [...] go swimming or use a hot tub ([employer]), or perform activities where your incision is [...] with your doctor. documented in this encounter [facility] 06-19-2022 Note PROCEDURE: XR ANKLE RT MIN 3 VIEWS COMPARISON: 10/31/2021 HISTORY: Pain of right ankle joint FINDINGS: BONES:Ankle arthroplasty. No acute fracture, dislocation or mechanical failure. Subtalar fusion. Flattening of the plantar arch. Moderate degenerative changes SOFT TISSUES:Negative. No visible soft tissue swelling. EFFUSION:None visible. OTHER: Negative. IMPRESSION: Stable ankle arthroplasty and subtalar fusion Electronically authenticated by: MARY CHRISTIAN Date: 2022-06-19 18:05 [facility] 10-31-2021 Note PROCEDURE: XR ANKLE RT MIN 3 VIEWS COMPARISON: 04/24/2021 HISTORY: Pain of right ankle joint FINDINGS: BONES:Stable partial talus and tibial plafond arthroplasty. Subtalar fusion with cannulated screws. No acute fracture, dislocation or mechanical failure SOFT TISSUES:Soft tissue swelling EFFUSION:None visible. OTHER: Negative. IMPRESSION: Stable ankle replacement and subtalar fusion Electronically authenticated by: MARY CHRISTIAN Date: 2021-10-31 20:14 [facility] 10-31-2021 Note PROCEDURE: XR FOOT R T [...] authenticated by: MARY CHRISTIAN Date: 2021-10-31 19:12 [facility] 06-11-2021 Evaluation note Encounter Date Diagnosis Assessment Notes May, Irritable bowel syndrome with diarrhea (ICD-10 - K58.0) [employer] Other 01-17-2022 Evaluation note* Encounter Date Diagnosis Assessment Notes Treatment Notes Treatment Clinical Notes Apr, Diarrhea (ICD-10 - R19.7) [facility] Other 11-18-2021 Evaluation note* Encounter Date Diagnosis Assessment Notes Treatment Notes Treatment Clinical Notes Feb, Irritable bowel syndrome with diarrhea (ICD-10 - K58.0) PATIENT STATES THAT SHE IS DOING WELL. PATIENT STATES THAT SHE HAS USED IMODIUM ONCE NEEDED. PATIENT IS ENCOURAGED CAN USE THE IMDOIUM DAILY WITH THE COLESTIPOL. [facility] Other 09-30-2021 Evaluation note* Encounter Date Diagnosis Assessment Notes Treatment Notes Treatment Clinical Notes Dec, Irritable bowel syndrome with diarrhea (ICD-10 - K58.0) Dec, Other Diarrhea material was printed START COLESIPOL 1 GRAM 2 PO DAILY OK TO USE IMODIUM PRN F/U HERE 6-8 WEEKS [employer] Other Evaluation note* Diagnosis Screening mammogram, encounter for documented in this encounter [email or web address] Phone: [email or web address] note* Diagnosis Dysuria documented in this encounter [email or web address] Phone: [email or web address] noteNo InformationNort [employer] Other Evaluation note* Diagnosis Nevus Benign neoplasm of skin, site unspecified documented in this encounter [facility] [employer] Phone: [email or web address] note* Diagnosis Preop examination- Primary Unspecified pre-operative examination Hypertension, unspecified type Chronic obstructive pulmonary disease, unspecified COPD type ([facility]-H[facility]) Urinary frequency Osteoarthritis of left knee, unspecified osteoarthritis type Preop examination Unspecified pre-operative examination Hypertension, unspecified type Chronic obstructive pulmonary disease, unspecified COPD type (CMS-HCC) Urinary frequency Preop examination Unspecified pre-operative examination Hypertension, unspecified type Chronic obstructive pulmonary disease, unspecified COPD type ([facility]-H[facility]) Urinary frequency Osteoarthritis of left knee, unspecified osteoarthritis type [facility] Diagnosis Status post total left knee replacement- Primary documented in this encounter [facility] Healthcare[facility] note* Diagnosis Status post total left knee replacement- Primary documented in this encounter [facility] HealthcareEvaluation noteNo assessment information [facility] Work Phone: History general Narrative - Reported* Type Description Date Medical History hypertension Medical History high cholesterol Surgical History CHOLECYSTECTOMY Surgical History RIGHT ARTHROSCOPY Surgical History RIGHT FOOT TOE REPLACEMENT Surgical History TUBAL LIGATION Surgical History RT KNEE REPLACEMENT 2018 Surgical History RT ANKLE 2018 Surgical History LEFT KNEE SCOPE 2019 Hospitalization History SEE ABOVE [facility] Other Reason for Referral Status Reason Specialty Diagnoses / Procedures Referred By Contact Referred To Contact Closed Radiology Diagnoses Visit for screening mammogram Procedures KENYA DIGITAL SCREEN W CAD BILATERAL HC MAMMO SCREENING INCL CAD IF PERF Elsie Jeffrey MD [address] [place] [address] Status Reason Specialty Diagnoses / Procedures Referre d By Contact Referred To Contact Closed Radiology Diagnoses Screening mammogram, encounter for Procedures KENYA MILAGRO DIGITAL SCREEN BILATERAL Shaince Niño, GEOMETRICIAN - CNM [address] [facility] [address] [place] [address] Status Reason Specialty Diagnoses / Procedures Referred By Contact Referred To Contact Closed Radiology Diagnoses Screening mammogram, encounter for Procedures KENYA DIGITAL SCREEN W OR WO CAD BILATERAL Elsie Jeffrey MD [address] [place] [address] 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 ACP-Advance Directive ACP-Power of Medical Grade Shoemaker Documents on File Type Date Recorded 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 Advance Directives and Living Will Power of Medical Grade Shoemaker Latest Code Status on File Code Status Date Activated Date Inactivated Comments Full Code 04/06/2019 10:44 AM Documents on File Type Date Recorded 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 [address] [place] [address] Reason Comments Follow-up Care Teams (unrecognized sec tion and content) Business Line Manager Relationship Specialty Start Date End Date Elsie Jeffrey MD [address] [place] [address] PCP - General 08/17/13 Business Line Manager Relationship Specialty Start Date End Date Elsie Jeffrey MD [address] [place] [address] PCP - General Internal Medicine 07/21/18 Business Line Manager Relationship Specialty Start Date End Date Elsie Jeffrey MD [address] [place] [id number] PCP - General Internal Medicine 11/08/22 Business Line Manager Relationship Specialty Start Date End Date Elsie Jeffrey MD [address] [place] [id number] PCP - General Internal Medicine 11/08/22 Business Line Manager Relationship Specialty Start Date End Date Elsie Jeffrey MD [address] [place] [id number] PCP - General Internal Medicine 11/08/22 Team [...] and content) DATE CREATED AUTHOR 06/25/2022 [facility] DATE CREATED AUTHOR AUTHOR'S ORGANIZ ATION 11/06/2022 Pathology [facility] DATE CREATED AUTHOR AUTHOR'S ORGANIZ ATION 05/17/2023 [facility] DATE CREATED AUTHOR AUTHOR'S ORGANIZ ATION 07/24/2023 [facility] DATE CREATED AUTHOR AUTHOR'S ORGANIZ ATION 08/05/2023 [facility] DATE CREATED AUTHOR AUTHOR'S ORGANIZ ATION 08/19/2023 [facility] DATE CREATED AUTHOR AUTHOR'S ORGANIZ ATION 08/20/2023 [facility] EPIC Goals (unrecognized section and content) [...] BE BASED ON THE PRIMARY CLINICAL RECORDS. [facility] [employer] [facility]. provides no warranty or guarantee of the accuracy or completeness of information in this document.
== END 2023-09-10 08:07 | disposition home or self-care (01) ==
LOC: PM 08:06
PROVIDERS: PCP Internal Medicine; Visit Provider Nurse Practitioner
DX: M48.062 Spinal stenosis, lumbar region with neurogenic claudication (principal); M79.18 Myalgia, other site; M47.816 Spondylosis without myelopathy or radiculopathy, lumbar region
CPT/HCPCS: G0463

== ENCOUNTER 2024-03-10 07:50 | Outpatient (OUT) | payer MEDICARE, SELFPAY ==
--- OUTSIDE RECORDS SUMMARY | 2024-03-10 07:58 | XMS_ITS | CCD ---
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 [facility] Care Team Providers Care Associate Entertainment Editor Name Role Phone Elsie Jeffrey Primary Care Provider Mary Francis Unavailable Elsie Jeffrey MD Primary Care Provider [phone]( [phone] DR MARY CHRISTIAN V Consulting Unavailable ALESHA, DR ZUNIGA Primary Care Unavailable KAVITHA PARSONS Attending Unavailable KAVITHA PARSONS Admitting Unavailable KAVITHA PARSONS Consulting Unavailable KAVITHA PARSONS Admitting Unavailable DR MARY CHRISTIAN V Consulting Unavailable [facility] DR ZUNIGA Primary Care Unavailable KAVITHA PARSONS [...] Provider Elsie Jeffrey MD Primary Care Unav Elsie Riojas MD Consulting Unav ailable Skyler Molina OD Attending Unavailable Dann LINDSAY, James Salgado Attending Unavailable Elsie Jeffrey MD Primary Care Unajenn ailable MD James Quigley Attending Provider MD Elsie Jeffrey Primary Care Provider Elsie Jeffrey Primary Care Unavailable Giedrazachariah, James Attending Unavailable Giedrazachariah, James Admitting Unavailable JENNIFER WHITAKER Attending Unavailable SINGLETON, FLAVIO Garcia Attending Unavailable SINGLETON, FLAVIO Garcia Attending Unavailable SINGLETON, FLAVIO Garcia Attending Unavailable SINGLETON, FLAVIO Garcia Attending Unavailable SINGLETON, FLAVIO Garcia Attending Unavailable SINGLETON, FLAVIO T Referring Unavailable SINGLETON, FLAVIO Garcia Attending Unavailable CONWAY, DAPHNE Clark Attending Unavailable ANGEL PICKETT Attending Unavailable JR. SHAKEEL, FREDDY Weiss Attending Unavaila gaby BADILLO JR., FREDDY Weiss Referring Unavaila DAPHNE Jimenez Attending Unavailable DAPHNE CONWAY Attending Unavailable SEARSELSIE Attending Unavailable SEARS, CHRISTBEER Steve Referring Unavailable SEARS, CHRISTOPHER Steve Primary Care Unavailable SEARS, CHRISTSTEPHANIE D Attending Unavailable SEARS, CHRISTBEER D Referring Unavailable SEARS, CHRISTOPHER D Primary Care Unavailable SEARS, CHRISTOPHER D Referring Unavailable SEARS, CHRISTOPHER D Primary Care Unavailable ADOLFO, CARMEN N Admitting Unavailable ADOLFOCARMEN N Attending Unavailable SEARS, CHRISTOPHER D Primary Care Unavailable SEARS, CHRISTOPHER D Attending Unavailable SEARS, CHRISTOPHER D Referring Unavailable SEARS, CHRISTOPHER D Primary Care Unavailable SEARS, CHRISTBEER D Attending Unavailable SEARS, CHRISTOPHER D Referring Unavailable SEARS, CHRISTOPHER D Primary Care Unavailable Allergies Allergy Classification Reported Allergen(s) Allergy Type Date of Onset Reaction(s) Facility (4 sources) Caffeine Drug Allergy 0 [facility] Work Phone: (17 sources) Codeine; Translations: [CODEINE] Drug Allergy 4 Palpitations, anaphylaxis, Tachycardia, Unknown [employer] Phone: (1 source) Caffeine Drug Allergy 8 [facility] Repository (1 source) Codeine Drug Allergy [facility] (1 source) Codeine Drug Allergy 4 [facility] Repository Medications Current Medications Medication Drug Class(es) [...] days 20 tablet 0 05/20/2023 05/25/2023 Active [id number] 200 actuat albuterol 0.09 mg/actuat metered dose [...] Active Start: 01-18-[address] [facility] every twenty-four hours Colestipol HCl 1 [...] by mouth in the morning Iron Polysacch Aghaq-C95-KS (Poly-Iron 150 Forte) 150-0.025-1 MG capsule Indications: [...] Active Start: 11-21-[address] [facility] every twelve hours Loperamide HCl 2 MG [...] Inhibitor Antibacterial, Sulfonamide Antimicrobial Start: 020 End: take 1 tablet by mouth twice daily [...] K58.0] Onset: 01-18-2021 Resolved: 06-11-2021 Chronic Other nervous system disorders (5 sources) [...] mass index (BMI) 40.0-44.9, adult] Chronic Other screening for suspected conditions (not mental disorders or infectious disease) (2 sources) Patient encounter status; Translations: [Encounter for screening mammogram for malignant neoplasm of breast] Onset: 02-06-2024 Episodic Other upper respiratory disease (10 sources) Allergic [...] [Other forms of dyspnea] Onset: 04-30-2023 Episodic Results Test Name Value Interpretation Reference Range Facility [facility] [place] DIGITAL SCREEN SELF REFERRAL W OR WO CAD BILATERALon 02-06-2024 [facility] [place] DIGITAL SCREEN SELF REFERRAL W OR WO CAD BILATERAL EXAMINATION: SCREENING DIGITAL BILATERAL MAMMOGRAM WITH TOMOSYNTHESIS, 02/06/2024 TECHNIQUE: Screening mammography of the bilateral breasts was performed with tomosynthesis. 2D standard and 3D tomosynthesis combination imaging performed through both breasts in the MLO and CC projection. Computer aided detection was utilized in the interpretation of this exam. COMPARISON: January 14, 2023 and December 12, 2021 HISTORY: Screening. FINDINGS: The breasts are almost [...] to the patient regarding the results. The [employer] recommends annual mammograms for women 40 years and older. Performing Facility: [place] [address] Interpreted by: Christopher Jean DO Signed by: Christopher Jean DO 02/06/24 Final result Normal [facility] Surgical Pathology Reporton 08-14-2023 Surgical Pathology Report (NOTE) Path Number: [id number] -- Diagnosis -- A. STOMACH, ANTRUM, BIOPSIES: - MILD TO MODERATE CHRONIC GASTRITIS. - HELICOBACTER PYLORI IMMUNOSTAIN (CONTROL APPROPRIATE) IS NEGATIVE FOR INFECTIOUS BACTERIA. B. GASTROESOPHAGEAL JUNCTION, BIOPSIES: - BENIGN PROXIMAL GASTRIC AND SQUAMOUS MUCOSA WITH MILD CHRONIC INFLAMMATION. - NEGATIVE FOR INTESTINAL METAPLASIA, DYSPLASIA AND MALIGNANCY. Porter Garner M.D. Electronically Signed Out 08/18/2023 Clinical Information Pre-Op Diagnosis: GASTROESOPHAGEAL REFLUX DISEASE, UNSPECIFIED WHETHER ESOPHAGITIS PRESENT Operative Findings: GASTRIC ANTRUM BIOPSY; GE JUNCTION Operation Performed: EGD WITH BIOPSIES mj Source of Specimen A: GASTRIC ANTRUM BIOPSY B: GE JUNCTION Gross Description Henry PATTEN, GASTRIC ANTRUM BIOPSY Received in formalin are three glez-white tissue fragments from 0.1 to 0.2 cm and are 0.4 x 0.1 x 0.1 cm in aggregate. Entirely 1cs. B. DESTINEY WESTFALL Received in formalin are three glez-white tissue fragments from 0.1 to 0.3 cm and are 0.5 x 0.2 x 0.1 cm in aggregate. Entirely 1cs. jj tm Palak Loving M.D./mj:08/15/2023 Microscopic Description A, B. Microscopic examination performed. Processing Lab: [address] [address] Interpretation Performed at [address] [address] SURGICAL PATHOLOGY CONSULTATION Patient Name: GLADIS PATTEN. Med Rec: [id number] [facility] CONSULTING PATHOLOGISTS [facility] ANATOMIC PATHOLOGY [address] [place] [phone] [facility] XR pre/post mri xrayon 07-29 XR pre/post mri xray [facility] Main [place] [address] [place] [address] MRI Report Signed Patient: Gladis Patten MR#: [id number] 3 : 1950 Acct:[id number] Age/Sex: 72 / F ADM Date: 07/30/23 Loc: MR Room: Type: [facility] Attending Dr: James Quigley MD Copies to: James Quigley MD Ordering Provider: James Quigley MD Date of Service: 07/30/23 MR/MR lumbar spine wo con: LUMBAR STENOSIS ([id number]) XR/XR pre/post mri xray: LUMBAR STENOSIS MR [...] Miles Laughlin M.D.07/30/2023 4:39 PM Dictation Location: [place] [address] Transcribed By: [facility] 07/30/23 163 Dictated By: Miles Laughlin II, MD 07/30/23 1631 Signed By: 07/30/23 1639 Normal [facility] XR KNEE LT 1 OR [...] Gonsales MD on 05/13/2023 11:10 AM Normal [facility] Bacteria identified Cx Nom ( U)on 04-17-2023 Service comment (Unsp spec) [Interp] 10-50,000 ORGANISMS/mL NORMAL UROGENITAL GRISEL [facility] ALT No additional P-5'-P [Ca talytic activity/Vol]on 04-16-2023 ALT [Catalytic activity/Vol] 20 U/L Normal 0-31 [facility] Comment on above: Performed By: #### C BCA, 1744-2, 1920-8, BMP, 17537-9 #### [facility] ([id number]) [address], [address] [place] [address] Ady 04-16-2023 AST [Catalytic activity/Vol] 19 U/L Normal 0-41 [facility] Comment on above: Performed By: #### C BCA, 1744-2, 1919-11, BMP, 51112-9 #### [facility] ([id number]) [address], [address] [place] [address] BASIC METABOLIC PANLon 04-16 Anion gap [Moles/Vol] 8 mmol/L Normal 5-15 [facility] Comment on above: Performed By: #### C BCA, 4-2, 1919-11, BMP, 00469-8 #### [facility] ([id number]) [address], [address] [place] [address] Calcium [Mass/Vol] 9.2 mg/dL Normal 8.5-10.5 [facility] Comment on above: Performed By: #### C BCA, 1743-2, 1919-11, BMP, 16749-4 #### [facility] ([id number]) [address], [address] [place] [address] Chloride [Moles/Vol] 103 mmol/L Normal 98-109 [facility] Comment on above: Performed By: #### C BCA, 1744-2, 1919-11, BMP, 03009-4 #### [facility] ([id number]) [address], [address] [place] [address] CO2 [Moles/Vol] 29 mmol/L Normal 22-32 [facility] Comment on above: Performed By: #### C BCA, 1744-2, 1919-11, BMP, 32919-5 #### [facility] ([id number]) [address], [address] [place] [address] Creatinine [Mass/Vol] 0.63 mg/dL Normal 0.40-1.00 [facility] Comment on above: Result Comment: METH OD TRACEABLE TO IDMS STANDARD Performed By: #### C JUANPABLO, 4-2, 1919-11, BMP, 46176-4 #### [facility] ([id number]) [address], [address] [place] [address] eGFR (CKD-EPI) NON-RACE DEPENDENT >90 Normal >59 [facility] Comment on above: Result Comment: Reported eGFR is based on the CKD-EPI 2020 equation that does not use a race coefficient. Performed By: #### C JUANPABLO, 1743-, 1919-11, BMP, 65790-5 #### [facility] ([id number]) [address], [address] [place] [address] Glucose [Mass/Vol] 103 mg/dL High 65-99 [facility] Comment on above: Performed By: #### C JUANPABLO, 1743-, 1919-11, BMP, 22368-1 #### [facility] ([id number]) [address], [address] [place] [address] Potassium [Moles/Vol] 3.7 mmol/L Normal 3.5-5.0 [facility] Comment on above: Performed By: #### Abhishek GERONIMO, 1743-2, 1919-11, BMP, 72540-6 #### [facility] ([id number]) [address], [address] [place] [address] Sodium [Moles/Vol] 140 mmol/L Normal 134-146 [facility] Comment on above: Performed By: #### C BCA, 4-2, 1919-11, BMP, 72840-7 #### [facility] ([id number]) [address], [address] [place] [address] Urea nitrogen [Mass/Vol] 17 mg/dL Normal 5-27 [facility] Comment on above: Performed By: #### Abhishek GERONIMO, 4-2, 1919-11, BMP, 66718-0 #### [facility] ([id number]) [address], [address] [place] [address] CBC AND AUTO DIFFon 04-16-20 23 ABSOLUTE BASOPHIL 0.0 X10E9/L Normal 0.0-0.2 [facility] Comment on above: Performed By: #### Abhishek GERONIMO, 4-2, 1919-11, BMP, 79028-5 #### [facility] ([id number]) [address], [address] [place] [address] ABSOLUTE NEUTROPHIL 3.7 X10E9/L Normal 1.5-6.6 [facility] Comment on above: Performed By: #### Abhishek GERONIMO, 1743-2, 1919-11, BMP, 52990-3 #### [facility] ([id number]) [address], [address] [place] [address] Basophils/100 WBC (Bld) 0.3 % Normal [facility] Comment on above: Performed By: #### Abhishek GERONIMO, 1743-2, 1919-11, BMP, 01213-4 #### [facility] ([id number]) [address], [address] [place] [address] Eosinophils (Bld) [#/Vol] 0.1 10*3/uL Normal 0.0-0.4 [facility] Comment on above: Performed By: #### Abhishek GERONIMO, 4-2, 1919-11, BMP, 99110-3 #### [facility] ([id number]) [address], [address] [place] [address] Eosinophils/100 WBC (Bld) 1.3 % Normal [facility] Comment on above: Performed By: #### Abhishek GERONIMO, 1744-2, 1919-11, BMP, 34307-7 #### [facility] ([id number]) [address], [address] [place] [address] Erythrocyte distribution width (RBC) [Ratio] 13.5 % Normal 11.5-15.0 [facility] Comment on above: Performed By: #### Abhishek GERONIMO, 4-2, 1919-11, BMP, 81429-4 #### [facility] ([id number]) [address], [address] [place] [address] Hematocrit (Bld) [Volume fraction] 42.2 % Normal 35-47 [facility] Comment on above: Performed By: #### Abhishek GERONIMO, 1743-, 1919-11, BMP, 97965-8 #### [facility] ([id number]) [address] [place] [address] Hemoglobin (Bld) [Mass/Vol] 14.3 g/dL Normal 11.7-15.5 [facility] Comment on above: Performed By: #### Abhishek GERONIMO, 1743-05, 1919-11, BMP, 85089-9 #### [facility] ([id number]) [address] [place] [address] Lymphocytes (Bld) [#/Vol] 1.3 10*3/uL Normal 1.0-3.5 [facility] Comment on above: Performed By: #### Abhishek GERONIMO, 1743-, 1919-11, BMP, 02622-2 #### [facility] ([id number]) [address], [address] [place] [address] Lymphocytes/100 WBC (Bld) 23.2 % Normal [facility] Comment on above: Performed By: #### Abhishek GERONIMO, 4-, 1919-11, BMP, 28436-1 #### [facility] ([id number]) [address], [address] [place] [address] MCH (RBC) [Entitic mass] 31.6 pg Normal 27-34 [facility] Comment on above: Performed By: #### Abhishek GERONIMO, 1743-2, 1919-11, BMP, 91401-2 #### [facility] ([id number]) [address], [address] [place] [address] MCHC (RBC) [Mass/Vol] 33.8 g/dL Normal 32-36 [facility] Comment on above: Performed By: #### Abhishek GERONIMO, 1743-2, 1919-11, BMP, 19407-5 #### [facility] ([id number]) [address], [address] [place] [address] MCV (RBC) [Entitic vol] 94 fL Normal 80-100 [facility] Comment on above: Performed By: #### Abhishek GERONIMO, 1743-, 1919-11, BMP, 91567-6 #### [facility] ([id number]) [address], [address] [place] [address] Monocytes (Bld) [#/Vol] 0.6 10*3/uL Normal 0-0.9 [facility] Comment on above: Performed By: #### Abhishek GERONIMO, 1743-05, 1919-11, BMP, 08238-5 #### [facility] ([id number]) [address], [address] [place] [address] Monocytes/100 WBC (Bld) 10.8 % Normal [facility] Comment on above: Performed By: #### Abhishek GERONIMO, 1743-2, 1919-11, BMP, 38888-9 #### [facility] ([id number]) [address] [place] [address] Neutrophils/100 WBC (Bld) 64.4 % Normal [facility] Comment on above: Performed By: #### Abhishek GERONIMO, 1743-, 1919-11, BMP, 54001-7 #### [facility] ([id number]) [address], [address] [place] [address] Platelet mean volume (Bld) [Entitic vol] 8.5 fL Normal 7-12 [facility] Comment on above: Performed By: #### Abhishek GERONIMO, 1743-, 1919-11, BMP, 71221-9 #### [facility] ([id number]) [address], [address] [place] [address] Platelets (Bld) [#/Vol] 233 10*3/uL Normal 150-450 [facility] Comment on above: Performed By: #### Abhishek GERONIMO, 1743-2, 1919-11, BMP, 07981-4 #### [facility] ([id number]) [address], [address] [place] [address] RBC COUNT 4.52 X10E12/L Normal 3.80-5.20 [facility] Comment on above: Performed By: #### Abhishek GERONIMO, 1743-, 1919-11, BMP, 95069-7 #### [facility] ([id number]) [address], [address] [place] [address] WBC (Bld) [#/Vol] 5.7 10*3/uL Normal 4.0-11.0 [facility] Comment on above: Performed By: #### Abhishek GERONIMO, 1743-2, 1919-11, BMP, 56892-6 #### [facility] ([id number]) [address], [address] [place] [address] HGB A1C (GLYCO-HGB)on 2022 Glucose [Mass/Vol] 117 mg/dL Normal [facility] Comment on above: Performed By: #### Abhishek GERONIMO, 1743-2, 1919-11, BMP, 39734-8 #### [facility] ([id number]) [address], [address] [place] [address] HbA1c (Bld) [Mass fraction] 5.7 % High 4.4-5.6 [facility] Comment on above: Result Comment: NOTE ADA Guidelines Result HgbA1c Normal : less than 5.7 % Prediabetes : 5.7 % to 6.4 % Diabetes : > 6.4 % Use with caution in patients with abnormal hemoglobin variants as the half-life of red blood cells and in vivo glycation rates are affected. Performed By: ###Sebastián Weiss BCA, 1744-2, 1919-11, JAYLAN, 73404-4 #### [facility] ([id number]) [address] [place] [address] Lipid 1996 panelon 3 Cholesterol [Mass/Vol] 162 mg/dL Normal 150-200 [facility] Comment on above: Performed By: ##Matthew Weiss BCA, 1744-2, 1919-11, JAYLAN, 07739-8 #### [facility] ([id number]) [address] [place] [address] Cholesterol in HDL [Mass/Vol] 64 mg/dL Normal >39 [facility] Comment on above: Result Comment: HDL <40 mg/dL - High Risk HDL > or = 40mg/dL- Desirable HDL >60 mg/dL - Negative Risk Performed By: ###Sebastián Weiss BCA, 1744-2, 1919-11, BMP, 33684-8 #### [facility] ([id number]) [address] [place] [address] Cholesterol in LDL [Mass/Vol] 68 mg/dL Normal <130 [facility] Comment on above: Result Comment: LDL <100 mg/dL - Desirable LDL >160 mg/dL - High Risk Performed By: #### Abhishek GERONIMO, 1744-2, 1919-11, BMP, 06570-0 #### [facility] ([id number]) [address] [place] [address] Cholesterol in VLDL [Mass/Vol] 30 mg/dL Normal 0-30 [facility] Comment on above: Performed By: #### Abhishek GERONIMO, 1744-2, 1919-11, BMP, 00516-1 #### [facility] ([id number]) [address], [address] [place] [address] CHOLESTEROL:HDL 2.5 Normal 1.0-5.0 [facility] Comment on above: Performed By: #### Abhishek GERONIMO, 1744-2, 1919-11, BMP, 26248-0 #### [facility] ([id number]) [address] [place] [address] Triglyceride [Mass/Vol] 152 mg/dL High 27-150 [facility] Comment on above: Performed By: #### Abhishek GERONIMO, 4-2, 1919-11, BMP, 79179-6 #### [facility] ([id number]) [address] [place] [address] URINALYSISon 04-16-2023 Bilirubin Ql (U) Negative Normal NEG [facility] BLOOD/HGB Negative Normal NEG [facility] Color (U) YELLOW Normal YELLOW [facility] Glucose Ql (U) Negative Normal NEG [facility] Ketones Ql (U) Negative Normal NEG [facility] Leukocyte esterase Test strip Ql (U) Negative Normal NEG [facility] Nitrite Ql (U) Negative Normal NEG [facility] pH (U) 6.5 [pH] Normal 5.0-8.5 [facility] Protein Ql (U) Negative Normal NEG [facility] Specific gravity (U) [Rel density] 1.006 Normal 1.003-1.035 [facility] TURBIDITY CLEAR Normal CLEAR [facility] Urobilinogen (U) [Mass/Vol] mg/dL Normal <1.1 [facility] URINE CULTUREon 04-16-2023 Bacteria identified Cx Nom (U) CULTURE RESULTS 10-50,000 ORGANISMS/mL NORMAL UROGENITAL GRISEL Normal [facility] Comment on above: Performed By: #### 6 30-4 #### [facility] ([id number]) [address] [place] [address] Urinalysison 04-16-2023 Bilirubin Ql (U) Negative Negative^Ne g ative [facility] Color (U) YELLOW YELLOW^YELLO W [facility] Glucose (U) [Mass/Vol] Negative Negat светлана^Neg ative mg/dL [facility] Hemoglobin Auto test strip Ql (U) Negative Negative^Neg ative [facility] Ketones (U) [Mass/Vol] Negative Negat светлана^Neg ative mg/dL [facility] Leukocyte esterase Auto test strip Ql (U) Negative Negative^Neg ative [facility] Nitrite Auto test strip Ql (U) Negative Negative^Neg ative [facility] pH (U) 6.5 [pH] 5.0 - 8.5 [facility] Protein (U) [Mass/Vol] Negative Negat светлана^Neg ative mg/dL [facility] Specific gravity Refractometry automated (U) [Rel density] 1.006 1.003 - 1.035 [facility] Turbidity Ql (U) CLEAR CLEAR^CLEAR [facility] Urobilinogen Qn (U) NINF [facility] 2 VWSon 04-16-2023 XR CHEST [...] Bowden MD on 04/16/2023 10:02 AM Normal [facility] XR Chest PA and Lateralon HISTORY: [...] Carlos Bowden MD on 04/16/2023 10:02 AM [facility] Carlos Bowden MD - 04/16/2023 [...] Carlos Bowden MD on 04/16/2023 10:02 AM [facility] Radiology Study observation (narrative) [facility] XR Chest PA and LateralOrder ed By: Carlos Bowden on 04-16-2023 [facility] Work Phone: XR Femur and Tibia Views for leg lengthon 04-16-2023 Allan Gonsales M D - 04/16/2023 XR BONE LENGTH STUDY HISTORY: Preoperative evaluation. Leg length discrepancy. COMPARISON: None FINDINGS: Measurements explicitly not requested by ordering surgeon. No acute fracture, dislocation, or destructive osseous lesion within the [id number]-jg-rusi. Orthopedic hardware of the right knee and ankle without evidence of failure or complication. Degenerative changes of the left knee and ankle. IMPRESSION: No evidence of acute osseous abnormality or orthopedic hardware failure/complication. Approved by Resident Aaron King MD on 04/16/2023 2:38 PM I, Allan Gonsales MD have personally reviewed the image(s) and agree with and/or edited the report Finalized by Allan Gonsales MD on 04/16/2023 2:41 PM [facility] Radiology Study observation (narrative) [facility] Femur and Tibia Views for leg lengthOrdered By: Allan Gonsales on 04-16-2023 [facility] Work Phone: ALT-SGPTon 11-05-2022 ALT [Catalytic activity/Vol] 19 U/L [...] Creatinine [Mass/Vol] 0.77 mg/dL Normal 0.60-1.30 [facility] GFR/1.73 sq M.predicted among non-blacks MDRD (S/P/Bld) [Vol rate/Area] 81 mL/min/{1.73_m2} Normal >60 [facility] Glucose [Mass/Vol] 99 mg/dL Normal 70-99 [facility] Potassium [Moles/Vol] 4.5 mmol/L Normal 3.5-5.4 [facility] Sodium [Moles/Vol] 138 mmol/L Normal 133-146 [facility] Urea nitrogen [Mass/Vol] 20 mg/dL Normal [...] MCHC (RBC) [Mass/Vol] 34.1 g/dL Normal 31.0-36.0 [facility] MCV (RBC) [Entitic vol] 93.1 fL Normal 80.0-99.0 [facility] Platelet mean volume (Bld) [Entitic vol] 10.2 fL Normal 9.3-13.0 [facility] Platelets (Bld) [#/Vol] 230 10*3/uL Normal 130-400 [facility] RBC (Bld) [#/Vol] 4.48 10*6/uL Normal 3.80-5.[address] [facility] WBC (Bld) [#/Vol] 6.6 10*3/uL Normal 3.5-11.0 [facility] HEMOGLOBIN A1Con 11-05-2022 Glucose [Mass/Vol] 120 mg/dL High <117 [facility] HbA1c (Bld) [Mass fraction] 5.8 % High 4.2-5.6 [facility] Comment on above: Result Comment: [employer] GUIDELINES FOR HGB A1C: PREDIABETES/INCREASED [...] VLDL-CHOL, CALCULATED 30 mg/dL High <30 [employer] VITAMIN B12on 11-05-2022 Cobalamin (Vitamin B12) [Mass/Vol] 559 pg/mL Normal 200-950 [facility] VITAMIN D, 25 HYDROXYon 10-19 VITAMIN D, 25 HYDROXY 32 NG/ML Normal SEE BELOW [employer] Comment on above: Result Comment: NOTE: [...] . . NG/ML 30-100 [facility] [address] [place] [address] CLIA No. [id number] CAP Accreditation No. [id number] Ore Crusher: Keke Islas M.D. MRI Brain w/ + w/o Contrasto n [...] Electronically Signed in Other Vendor System) Normal [facility] MRI Orbits w/ + w/o Contrast on [...] Electronically Signed in Other Vendor System) Normal [facility] ALT-SGPTon 04-09-2022 ALT [Catalytic activity/Vol] 26 U/L Normal 5-40 [facility] AST-SGOTon 04-09-2022 AST-SGOT 25 U/L Normal 9-40 [facility] BASIC METABOLIC PANEL WITH G FRon 04-09-2022 Anion gap [Moles/Vol] 9.0 mmol/L Normal 7.0-16.0 [employer] Comment on above: Result Comment: Please note new reference range effective 2021 Calcium [Mass/Vol] 9.4 mg/dL Normal 8.5-10.5 [facility] Chloride [Moles/Vol] 101 mmol/L Normal 95-107 [facility] CO2 [Moles/Vol] 29 mmol/L Normal 19-31 [facility] Creatinine [Mass/Vol] 0.73 mg/dL Normal 0.60-1.30 [employer] GFR/1.73 sq M.predicted among non-blacks MDRD (S/P/Bld) [Vol rate/Area] 87 mL/min/{1.73_m2} Normal >60 [facility] Glucose [Mass/Vol] 110 mg/dL High 70-99 [facility] Potassium [Moles/Vol] 4.3 mmol/L Normal 3.5-5.4 [facility] Sodium [Moles/Vol] 139 mmol/L Normal 133-146 [facility] Urea nitrogen [Mass/Vol] 18 mg/dL Normal [...] MCHC (RBC) [Mass/Vol] 33.3 g/dL Normal 31.0-36.0 [facility] MCV (RBC) [Entitic vol] 93.0 fL [...] Inc Comment on above: Result Comment: [facility] [employer] [address] [place] [address] CLIA No. [id number] CAP Accreditation No. [id number] Ore Crusher: Keke Islas M.D. HbA1c (Bld) [Mass fraction] 5.9 % High 4.2-5.6 [facility] Comment on above: Result Comment: [employer] GUIDELINES FOR HGB A1C: PREDIABETES/INCREASED [...] VLDL-CHOL, CALCULATED 18 mg/dL Normal <30 Pat [facility] KENYA DIGITAL SCREEN W CAD TIARA ATERALon 06-09-2019 No mammographic evidence for malignancy. BIRADS: BIRADS - CATEGORY 1 Negative, no evidence of malignancy. Normal interval follow-up is recommended in 12 months. OVERALL ASSESSMENT - NEGATIVE A letter of notification will be sent to the patient regarding the results. [employer] recommends annual mammograms for women 40 years and older. [place], [place] EXAMINATION: BILATERAL DIGITAL SCREENING MAMMOGRAM, 06/09/2019 8:16 [...] abnormality is identified on the tomosynthesis images. [place], [place] Glenn, pn Incoming Radiant Results From [employer] - 06/09/2019 9:56 AM EST EXAMINATION: BILATERAL [...] to the patient regarding the results. [employer] recommends annual mammograms for women 40 years and older. [employer]- [place], [place] Urinalysis With MicroscopicO rdered By: Karina Niño on 04-27-2019 - [employer] Work Phone: Amorphous, UA NOT REPORTED None [facility] Work Phone: Bacteria, UA 1+ Abnormal None [employer] Work Phone: Bilirubin Urine Negative NEGATIVE [facility] Work Phone: Casts UA NOT REPORTED /LPF [employer] Work Phone: Color, UA YELLOW YELLOW [employer] Work Phone: Crystals UA NOT REPORTED None /HPF [facility] Work Phone: Epithelial Cells UA 2 TO 5 [facility] Work Phone: Glucose, Ur Negative NEGATIVE [employer] Work Phone: Interpretation and review of laboratory results Abnormal [employer] Work Phone: Ketones Ql (U) Negative NEGATIVE [employer] Work Phone: Leukocyte esterase Test strip Ql (U) Negative NEGATIVE [employer] Work Phone: Mucus, UA NOT REPORTED None [employer] Work Phone: Nitrite, Urine Negative NEGATIVE [employer] Work Phone: Other Observations UA NOT REPORTED NOT REQ. [facility] Work Phone: pH, UA 6.0 [facility] Work Phone: Protein, UA Negative NEGATIVE [facility] Work Phone: RBC, UA None [employer] Work Phone: Renal Epithelial, Urine NOT REPORTED 0 /HPF [employer] Work Phone: Specific [place], UA 1.020 [employer] Work Phone: Trichomonas, UA NOT REPORTED None [employer] Work Phone: Turbidity UA CLEAR CLEAR [facility] Work Phone: Urinalysis Comments NOT REPORTED [facility] [employer] Work Phone: Urine Hgb Negative NEGATIVE [facility] Work Phone: Urobilinogen, Urine Normal Normal [facility] Work Phone: WBC, UA 2 TO 5 [employer] Work Phone: Yeast, UA NOT REPORTED None [employer] Work Phone: Vital Signs Date Time Vital Sign Value Performing Clinician Jordan henderson 07-30-2023 14:44-0400 Body height 152.4 cm MD Elsie Jeffrey Work Phone: [facility] 07-30-2023 14:44-0400 Body weight 94.34 kg MD Elsie Jeffrey Work Phone: [facility] 04-16-2023 09:13-0500 Body height 152.4 cm Pm 2 [employer] 04-16-2023 09:13-0500 Body mass index (BMI) [Ratio] 41.79 kg/m2 [facility] 04-16-2023 09:13-0500 Body weight 97.07 kg Pm [facility] 03-08-2021 11:15-0500 Body height 152.4 cm Mary Francis Other [employer] Other 03-08-2021 11:15-0500 Body mass index (BMI) [Ratio] 40.62 kg/m2 Mary Francis Other [employer] Other 03-08-2021 11:15-0500 Body weight 94.35 kg Mary Francis Other [employer] Other 01-18-2021 12:00-0400 Body height 152.4 cm Mary Francis Other [employer] Other 01-18-2021 12:00-0400 Body mass index (BMI) [Ratio] 41.2 kg/m2 Mary Francis Other [employer] Other 01-18-2021 12:00-0400 Body weight 95.71 kg Mary Francis Other [employer] Other Encounters Encounter Date Encounter Type Care Provider Facility Start: 02-06-2024 End: 02-08-2024 ambulatory [facility]FF[facility] Start: 12-09-2023 End: 12-09-2023 ambulatory DAPHNE CONWAY Not Available Start: 11-05-2023 End: 11-05-2023 ambulatory FREDDY BENAVIDEZ Not Available Start: 08-19-2023 End: 08-19-2023 ambulatory ANGEL PICKETT Not Available Start: 08-14-2023 End: 08-14-2023 [facility] Start: 08-05-2023 End: 08-05-2023 ambulatory DAPHNE CONWAY Not Available Start: 08-04-2023 End: 08-04-2023 ambulatory FLAVIO SINGLETON Not Available Start: 07-30-2023 End: 07-30-2023 ambulatory Elsie Jeffrey Facility:[facility] Start: 07-30-2023 End: 07-30-2023 ambulatory MD Elsie Jeffrey Work Phone: [facility] Work Phone: Start: 07-30-2023 End: 07-30-2023 Patient encounter procedure MD Elsie Jeffrey Work Phone: [facility] [place] Work Phone: Start: 07-14-2023 End: 07-15-2023 ambulatory James Quigley MD Facility:[facility] Start: 06-23-2023 End: 06-23-2023 ambulatory FLAVIO SINGLETON Not Available Start: 06-02-2023 Bamboo flowsheet Flavio Singleton CRTTS Work Phone: [facility] Start: 06-02-2023 Bamboo flowsheet Flavio Singleton CRTTS Work Phone: [facility] Start: 06-02-2023 End: 06-02-2023 Postop follow up visit related to original px Flavio Singleton CRTTS Work Phone: [facility] Comment on above: Status post total le ft knee replacement (Primary Dx) Start: 06-02-2023 End: 06-02-2023 ambulatory FLAVIO SINGLETON Not Available Start: 05-27-2023 End: 05-27-2023 ambulatory FLAVIO SINGLETON Not Available Start: 05-22-2023 End: 05-22-2023 Postop follow up visit related to original px Flavio Singleton CRTTS Work Phone: [facility] Comment on above: Status post total le ft knee replacement (Primary Dx) Start: 05-22-2023 End: 05-22-2023 ambulatory FLAVIO SINGLETON Not Available Start: 05-15-2023 End: 05-15-2023 ambulatory FLAVIO SINGLETON Not Available Start: 05-15-2023 End: 05-15-2023 ambulatory MARY SINGH [facility] Start: 05-13-2023 End: 05-15-2023 ambulatory FREDDY BADILLO [facility] Start: 05-13-2023 End: 05-14-2023 ambulatory FREDDY Abhishek BADILLO [facility] Start: 05-08-2023 End: 05-09-2023 [facility] Start: 05-01-2023 End: 05-03-2023 [facility] Start: 04-30-2023 End: 05-02-2023 ambulatory [facility] Start: 04-30-2023 Encounter for preprocedural cardiovascular examination ELSIE Granados [facility] Start: 04-28-2023 End: 04-28-2023 ambulatory JENNIFER Raf WHITAKER Not Available Start: 04-16-2023 End: 04-17-2023 ambulatory FREDDY Abhishek BADILLO [facility] Start: 04-16-2023 Encounter for other [facility]procedural examination [facility] Start: 04-16-2023 End: 04-16-2023 Patient encounter procedure Pmh Pre-Admission Testing 2 [facility] - Pre Admit Comment on above: Preop examination (P rimary Dx); Hypertension, unspecified type; Chronic obstructive pulmonary disease, unspecified COPD type (CMS-HCC); Urinary frequency; Osteoarthritis of left knee, unspecified osteoarthritis type Start: 04-16-2023 End: 04-16-2023 Preprocedural examination done Pm 2 [facility] Start: 04-01-2023 End: 04-01-2023 ambulatory DAPHNE CONWAY Not Available Start: 09-15-2022 End: 09-16-2022 ambulatory Elsie Jeffrey MD Facility:[facility] Start: 06-19-2022 End: 06-20-[address] MARY CHRISTIAN Facility:[facility] Start: 10-31-2021 End: 11-01-2021 ambulatory KAVITHA PARSONS Facility:[facility] Start: 10-30-2021 End: 10-30-2021 Subsequent hospital visit by physician Elsie Jeffrey MD [facility] Comment on above: [facility] Start: 06-11-2021 End: 06-11-2021 ambulatory Mary Francis Other [employer] Other Start: 06-11-2021 Telephone encounter Mary Francis [facility] Start: 05-07-2021 End: 05-07-2021 ambulatory Mary Francis Other [employer] Other Start: 05-07-2021 Telephone encounter Mary Francis [facility] Start: 03-08-2021 End: 03-08-2021 ambulatory Mary Francis Other [facility] [employer] Other Start: 03-08-2021 Office outpatient vi sit 15 minutes Mary Duglasarnaud [facility] Gastro[facility] Start: 01-18-2021 Office outpatient vi sit 25 minutes Mary Duglasarnaud [facility] Start: 12-11-2020 End: 12-13-2020 Subsequent hospital visit by physician [facility] Mammography Comment on above: Screening mammogram, encounter for Start: 06-09-2019 End: 06-11-2019 Subsequent hospital visit by physician [facility]amm[facility] Mammography Comment on above: Visit for screening mammogram Start: 04-27-2019 End: 04-27-2019 Subsequent hospital visit by physician Elsie Jeffrey MD Work Phone: [facility] Laboratory Comment on above: Dysuria Start: 04-26-2019 End: 04-26-2019 Subsequent hospital visit by physician Elsie Jeffrey MD Work Phone: [facility] Laboratory Procedures Date Procedure Procedure Detail Performing Clinician Start: 07-30-2023 XR pre/post mri xray MD Elsie olivares Work Phone: Start: 07-30-2023 MR lumbar spine wo con MD Elsie ortiz Work Phone: Start: 04-28-2023 H/O: artificial joint History of right ankle joint replacement Flavio Singleton NP Work Phone: Start: 01-14-2023 Mammography Flavio Singleton NP Work Phone: Start: 06-09-2019 Screening digital breast tomosynthesis bi Elsie Jeffrey Work Phone: Start: 04-27-2019 Urnls dip stick/tablet reagent auto microscopy Karina Niño APRN - CNM Work Phone: Start: 07-01-2012 Colonoscopy Elsie Jeffrey MD Work Phone: Plan of Treatment Date Care Activity Detail Author Start: 04-16-2024 Adult BMI Screening Adult BMI Screen ing [facility] Start: 04-16-2024 Tobacco Screening Tobacco Screening [facility] Start: 01-15-2024 Screening for malign ant neoplasm of breast Mammogram [facility] Start: 01-09-2024 DTaP,Tdap and Td Vaccines (2 - Td or Tdap) DTaP,Tdap and Td Vaccines (2 - Td or Tdap) [facility] Start: 01-09-2024 DTaP/Tdap/Td vaccine (2 - Td or Tdap) DTaP/Tdap/Td vaccine (2 - Td or Tdap) [facility] Start: 01-09-2024 DTaP/Tdap/Td vaccine (2 - Td) DTaP/Tdap/Td vaccine (2 - Td) [facility] Work Phone: Start: 08-19-2023 End: 08-19-2023 Patient encounter procedure 08/19/2023 8:35 AM EDT Office Visit [facility] [address] [place] [address] Angel Pickett MD [address] [place] [address] [facility] Start: 08-05-2023 End: 08-05-2023 Patient encounter procedure 08/05/2023 8:45 AM EDT Procedure Visit [facility] [address] [place] [phone] Daphne Conway, DPM [address] [place] [address] [facility] Start: 06-23-2023 End: 06-23-2023 Patient encounter procedure 06/23/2023 2:00 PM EST Office Visit [facility] [address] [place] [phone] Flavio Singleton, SANTO [address] [place] [address] [facility] Start: 06-02-2023 End: 06-02-2023 Patient encounter procedure 06/02/2023 9:45 AM EST Office Visit [facility] [address] [place] [address] Flavio Singleotn, SANTO [address] [place], [place] [id number] Arrived [facility] Comment on above: Arrived Start: 05-27-2023 End: 05-27-2023 Patient encounter procedure 05/27/2023 9:30 AM EST Office Visit [facility] [address] [place] [address] Jennifer Whitaker PA [address] [place] [address] [facility] Start: 05-13-2023 End: 05-13-2023 Admission to same day surgery center 05/13/2023 7:45 AM EST - 05/13/2023 11:00 AM EST Surgery [facility] - Surgery [address] [facility] [phone] Freddy Badillo Jr., DO [address] [facility] [address] [place] [address] REPLACEMENT TOTAL JOINT KNEE [00731 (CPT )] [facility] - Surgery Comment on above: REPLACEMENT TOTAL JASPER INT KNEE [11694 (CPT )] Start: 05-13-2023 End: 05-13-2023 Arthrp kne condyle&platu medial&lat compartments REPLACEMENT TOTAL JOINT KNEE left knee degenerative joint disease 05/13/2023 7:45 AM EST [facility] Start: 05-13-2023 Subsequent hospital visit by physician 05/13/2023 7:45 AM EST Hospital Encounter [facility] - Surgery [address] [place] [phone] Freddy Badillo Jr., DO [address] [place] [address] [facility] - Surgery Start: 05-05-2023 End: 04-15-2024 Crossmatch RBC Crossmatch RBC Blood Bank Routine Preop examination Hypertension, unspecified type Chronic obstructive pulmonary disease, unspecified COPD type (CMS-HCC) Urinary frequency Expected: 05/05/2023, Expires: 04/15/2024 [facility] Comment on above: Expected: 05/05/2023 , Expires: 04/15/2024 Start: 05-05-2023 End: 04-15-2024 Type and screen(includes indirect lisa) Type and screen(includes indirect lisa) Blood Bank Routine Preop examination Hypertension, unspecified type Chronic obstructive pulmonary disease, unspecified COPD type (CMS-HCC) Urinary frequency Expected: 05/05/2023, Expires: 04/15/2024 [facility] Work Phone: Comment on above: Expected: 05/05/2023 , Expires: 04/15/2024 Start: 12-20-2022 COVID-19 Vaccine ( season) COVID-19 Vaccine () [employer] Start: 12-11-2022 Screening for malign ant neoplasm of breast Breast cancer screen [facility] Start: 07-01-2022 Screening for malign ant neoplasm of colon [facility] Start: 04-19-2022 End: 04-19-2022 Patient encounter procedure 04/19/2022 Office Visit Internal Medicine Elsie Jeffrey MD [address] [place] [address] Wesley Jeffrey MD [facility] Start: 04-17-2022 Annual Wellness Visi t (AWV) Annual Wellness Visit (AWV) [facility] Start: 04-16-2022 Depression Screen Depression Screen [facility] Start: 04-09-2022 Hemoglobin A1c measurement A1C test (Diabetic or Prediabetic) [employer] Start: 04-09-2022 Lipid panel Lipids [facility] [employer] Start: 12-20-2021 Influenza vaccination Flu vaccine (# 1) [employer] Start: 11-09-2021 End: 11-09-2021 Patient encounter procedure 11/09/2021 Office Visit Internal Medicine Elsie Jeffrey MD [address] [place] [address] Wesley Jeffrey MD Inc Start: 09-26-2021 Creatinine measurement Creatinine mo nitoring [facility] Phone: Start: 09-26-2021 Hemoglobin A1c measurement A1C test (Diabetic or Prediabetic) [facility] Phone: Start: 09-26-2021 Lipid panel Lipid screen [employer] [facility] [employer] Phone: Start: 09-26-2021 Potassium monitoring Potassium monit oring [facility] [employer] Phone: Start: 06-09-2021 Breast cancer screen Breast cancer s [facility] [place] Start: 06-09-2021 Screening for malign ant neoplasm of breast Breast cancer screen [facility] Phone: Start: 04-16-2021 End: 04-16-2021 Patient encounter procedure 04/16/2021 Office Visit Internal Medicine Elsie Jeffrey MD [address] [place] [address] [phone] Wesley Jeffrey MD Inc Start: 04-11-2021 Annual Wellness Visi t (AWV) Annual Wellness Visit (AWV) [facility] Phone: Start: 12-20-2020 Influenza vaccination Flu vaccine (# 1) [employer] Phone: Start: 12-04-2020 Shingles Vaccine (3 of 3) Shingles Vaccine (3 of 3) [employer] Phone: Start: 05-15-2020 Breast cancer screen Breast cancer s [facility] [employer] Phone: Start: 04-27-2020 Shingles Vaccine (2 of 3) Shingles Vaccine (2 of 3) [employer] Phone: Comment on above: Postponed from 06/16 (Unavailable) Start: 04-10-2020 End: 04-10-2020 Office Visit 04/10/2020 Office Visit Internal Medicine Elsie Jeffrey MD [address] [place] [address] Wesley Jeffrey MD Inc Start: 04-06-2020 Annual Wellness Visi t (AWV) [facility] (AWV) [facility] [place] Start: 04-05-2020 Annual Wellness Visi t (AWV) Annual Wellness Visit (AWV) [employer] Phone: Start: 03-30-2020 A1C test (Diabetic o r Prediabetic) A1C test (Diabetic or Prediabetic) [employer] Phone: Start: 03-30-2020 Creatinine monitoring Creatinine mon itoring [employer] Phone: Start: 03-30-2020 Lipid screen Lipid screen [employer] Phone: Start: 03-30-2020 Potassium monitoring Potassium monit oring [employer] Phone: Start: 02-09-2020 Colon cancer screen colonoscopy Colon cancer screen colonoscopy [employer] Phone: Start: 10-18-2019 End: 10-18-2019 Office Visit 10/18/2019 Office Visit Internal Medicine Elsie Jeffrey MD [address] [place] [address] Wesley Jeffrey MD Inc Start: 06-09-2019 End: 06-09-2019 Patient encounter procedure 06/09/2019 Appointment Radiology [employer] Start: 04-27-2019 End: 04-27-2019 Patient encounter procedure 04/27/2019 Office Visit Obstetrics and Gynecology Karina Niño, BARREL RAISER HELPER - CN [address] [place] [address] [facility] [place] [employer] Start: 2013 Fall Risk Screening Fall Risk Screen ing [employer] Start: 06-16-2013 Shingles Vaccine (2 of 3) Shingles Vaccine (2 of 3) [employer] Phone: Start: 1993 Screening for malign ant neoplasm of colon BON ELIE Behance Start: 1966 Adult BMI Follow Up Plan Adult BMI Follow Up Plan [facility] Start: 1960 Depression Screening Depression Scre ening [employer] Start: 1948 Medicare Annual Wellness Visit Medicare Annual Wellness Visit [employer] Start: 1948 Screening for malign ant neoplasm of colon [facility] End: 04-27-2019 Bacteria identified in Urine by Culture Urine Culture Microbiology Routine Dysuria 1 Occurrences starting 04/27/2019 until 04/27/2019 [employer] Phone: Comment on above: 1 Occurrences starti ng 04/27/2019 until 04/27/2019 Bacteria identified in Urine by Culture Urine Culture Microbiology Routine Dysuria 04/27/2019 12:04 PM EST [employer] Phone: End: 12-11-2020 KENYA DIGITAL SCREEN W OR WO CAD BILATERAL KENYA DIGITAL SCREEN W OR WO CAD BILATERAL Imaging Routine Screening mammogram, encounter for 1 Occurrences starting 12/11/2020 until 12/11/2020 [employer] Phone: Comment on above: 1 Occurrences starti ng 12/11/2020 until 12/11/2020 End: 12-11-2020 KENYA MILAGRO DIGITAL SCREEN BILATERAL KENYA MILAGRO DIGITAL SCREEN BILATERAL Imaging Routine Screening mammogram, encounter for 1 Occurrences starting 12/11/2020 until 12/11/2020 [employer] Phone: Comment on above: 1 Occurrences starti ng 12/11/2020 until 12/11/2020 KENYA MILAGRO DIGITAL SCR EEN BILATERAL KENYA MILAGRO DIGITAL SCREEN BILATERAL Imaging Routine Screening mammogram, encounter for 12/11/2020 12:14 PM EDT [employer] Phone: End: 10-30-2021 Surgical Pathology Surgical Pathology Lab Routine Nevus 1 Occurrences starting 10/30/2021 until 10/30/2021 [facility] Work Phone: Comment on above: 1 Occurrences starti ng 10/30/2021 until 10/30/2021 End: 10-30-2021 SURGICAL PATHOLOGY REPORT SURGICAL PATHOLOGY REPORT Lab Routine Once for 1 Occurrences starting 10/30/2021 until 10/30/2021 [employer] Work Phone: Comment on above: Once for 1 Occurrenc es starting 10/30/2021 until 10/30/2021 Immunizations Immunization Date Immunization Notes Care Provider [facility] 01-15-2023 Influenza, Seasonal, Quadrivalent, Adjuvanted Flavio Singleton NP Work Phone: [facility] 01-18-2022 Moderna Bivalent Booster Vaccination Flavio Singleton NP Work Phone: [facility] 01-09-2022 Influenza, Seasonal, Quadrivalent, Adjuvanted Flavio Singleton CRTTS Work Phone: [facility] 12-20-2020 Influenza, Quadv, adjuvanted, 65 yrs +, IM, PF (Fluad) Elsie Jeffrey MD Work Phone: [employer] Work Phone: 12-20-2020 zoster vaccine recombinant Elsie Jeffrey MD Work Phone: [facility] Work Phone: 10-09-2020 zoster vaccine recombinant Elsie Jeffrey MD Work Phone: [employer] Work Phone: 06-14-2020 COVID-19 Vaccine Pfi zer - Documentation Purposes Only Mary Francis Other [facility] 05-24-2020 COVID-19 Vaccine Pfi zer - Documentation Purposes Only Mary Francis Other [facility] 12-15-2019 influenza virus vaccine, unspecified formulation [facility] Work Phone: 12-15-2019 influenza, injectabl e, quadrivalent, preservative free Flavio Singleton CRTTS Work Phone: [facility] 12-15-2019 Influenza, Quadv, adjuvanted, 65 yrs +, IM, PF (Fluad) [facility] Work Phone: 01-23-2019 Seasonal trivalent influenza vaccine, adjuvanted, preservative free Elsie Jeffrey MD Work Phone: [facility] Work Phone: 01-19-2019 influenza virus vaccine, unspecified formulation Flavio Singleton CRTTS Work Phone: [facility] 01-19-2019 influenza, injectabl e, quadrivalent, preservative free Flavio Singleton CRTTS Work Phone: [facility] 02-05-2018 influenza virus vaccine, unspecified formulation Elsie Jeffrey MD Work Phone: [facility] 02-05-2018 Seasonal trivalent influenza vaccine, adjuvanted, preservative free Flavio Singleton CRTTS Work Phone: [facility] 01-27-2018 influenza, injectabl e, quadrivalent, preservative free Flavio Singleton CRTTS Work Phone: [facility] 01-19-2017 influenza, injectabl e, quadrivalent, preservative free Flavio Singleton CRTTS Work Phone: [facility] 01-17-2017 influenza virus vaccine, unspecified formulation Elsie Jeffrey MD Work Phone: [facility] 01-17-2017 influenza, seasonal, injectable Flavio Singleton CRTTS Work Phone: [facility] 01-02-2017 Seasonal trivalent influenza vaccine, adjuvanted, preservative free Flavio Singleton CRTTS Work Phone: [facility] 02-13-2016 pneumococcal polysaccharide vaccine, 23 valent Elsie Jeffrey MD Work Phone: [facility] Work Phone: 01-20-2016 pneumococcal polysaccharide vaccine, [address] [facility] Work Phone: 01-20-2016 seasonal influenza, intradermal, preservative free Flavio Singleton NP Work Phone: [facility] 01-09-2016 Influenza Vaccine, unspecified formulation Elsie Jeffrey MD Work Phone: [facility] Work Phone: 01-09-2016 influenza virus vaccine, unspecified formulation Flavio Singleton CRTTS Work Phone: [facility] 01-09-2016 influenza, high dose seasonal, preservative-free Flavio Singleton CRTTS Work Phone: [facility] 02-06-2015 influenza, high dose seasonal, preservative-free Flavio Singleton CRTTS Work Phone: [facility] 02-06-2015 pneumococcal conjuga te vaccine, 13 valent Flavio Singleton NP Work Phone: [facility] 01-19-2015 Influenza Vaccine, unspecified formulation Elsie Jeffrey MD Work Phone: [facility] Work Phone: 01-19-2015 influenza virus vaccine, unspecified formulation Flavio Singleton NP Work Phone: [facility] 01-19-2015 pneumococcal conjuga te vaccine, 13 valent Elsie Jeffrey MD Work Phone: [facility] Work Phone: 01-08-2014 tetanus toxoid, redu dona diphtheria toxoid, and acellular pertussis vaccine, adsorbed Elsie Jeffrey MD Work Phone: [facility] 04-21-2013 zoster vaccine, live Michel Jeffrey MD Work Phone: [facility] Work Phone: 03-14-2009 novel [id number], preservative-free, injectable Flavio Singleton NP Work Phone: [facility] Payers Date Payer Category Payer Self-pay [id number] 2014 Medicare MEDICARE MEDICAR E PART A AND B xxxxxxxxxxx 2014-Present [phone] [place] [address] xxxxxxxxxxx [id number] 2014 Private Health Insurance [employer] SU[employer] xxxxxxxxxx 2014-Present [phone] [address] [address] [place] [address] xxxxxxxxxx [id number] .[id number] 2014 Private Health Insurance [id number] .[id number] .7.3.340906.315 2014 Private Health Insurance [id number] 2014 Medicare [id number] [id number] .[id number] 1959 Medicare [id number] 1.2.840.598345.1.13.239.2 .7.3.536169.315 1959 Private Health Insurance [facility] [id number] 1.2.840.131468.1.13.239.2 .7.3.262658.315 1948 Unknown [id number] 2.16.840.1.486101.3.579.2 .593 1948 Unknown [id number] 2.16.840.1.631113.3.579.2 .593 1948 Unknown [id number] 2.16.840.1.986090.3.579.2 .1286 1948 Unknown [id number] 2.16.840.1.576527.3.579.2 .1286 1948 Unknown [id number] 2.16.840.1.977255.3.579.2 .1286 1948 Unknown [id number] 2.16.840.1.918729.3.579.2 .1285 1948 Unknown [id number] 2.16.840.1.856911.3.579.2 .1285 1948 Unknown [id number] 2.16.840.1.593612.3.579.2 .1285 1948 Unknown [id number] 2.16.840.1.799203.3.579.2 .1285 1948 Unknown [id number] 2.16.840.1.404466.3.579.2 .1285 1948 Unknown [id number] 2.16.840.1.965045.3.579.2 .1285 1948 Unknown [id number] 2.16.840.1.740356.3.579.2 .1285 1948 Unknown [id number] 2.16.840.1.985145.3.579.2 .1948 Unknown [id number] 2.16.840.1.707460.3.579.2 .1948 Unknown [id number] 2.16.840.1.227348.3.579.2 .1258 1948 Unknown [id number] 2.16.840.1.213782.3.579.2 .1258 1948 Unknown [id number] 2.16.840.1.068966.3.579.2 .1258 1948 Unknown [id number] 2.16.840.1.096719.3.579.2 .1258 1948 Unknown [id number] 2.16.840.1.199842.3.579.2 .1258 1948 Unknown [id number] 2.16.840.1.659464.3.579.2 .12589 Unknown [id number] 2.16.840.1.241387.3.579.2 .1259 1948 Unknown [id number] 2.16.840.1.401911.3.579.2 .1259 1948 Unknown [id number] 2.16.840.1.947463.3.579.2 .125 1948 Unknown [id number] 2.16.840.1.219757.3.579.2 .125 1948 Unknown [id number] 2.16.840.1.895153.3.579.2 .125 1948 Unknown [id number] 2.16.840.1.303395.3.579.2 .1258 1948 Unknown [id number] 2.16.840.1.355351.3.579.2 .125 1948 Unknown [id number] 2.16.840.1.746003.3.579.2 .125 1948 Unknown [id number] 2.16.840.1.341634.3.579.2 .173 1948 Unknown [id number] 2.16.840.1.928150.3.579.2 .173 1948 Unknown [id number] 2.16.840.1.134678.3.579.2 .173 1948 Unknown [id number] 2.16.840.1.793682.3.579.2 .173 1948 Unknown [id number] 2.16.840.1.819893.3.579.2 .173 1948 Unknown [id number] 2.16.840.1.371722.3.579.2 .173 Unknown [id number] 2.16.840.1.951661.3.579.2 .531 Social History Date Type Detail Facility Start: 04-27-2019 End: 11-14-2022 Tobacco smoking status NHIS Former smoker [employer] Phone: Start: 04-21-1968 End: 09-19-1972 History of tobacco use Current smoker [employer] Phone: Start: 04-27-2019 End: 06-02-2023 Cigarettes smoked current (pack per day) - Reported [employer] Phone: Start: 04-27-2019 End: 06-02-2023 Alcohol intake Current drinker of alcohol (finding) [employer] Phone: Start: 02-05-2012 Alcohol Comment socially [employer] Phone: Start: 1950 Sex Assigned At Not on file [facility] [employer] Phone: Start: 12-11-2020 End: 11-14-2022 Tobacco use and exposure Never used [facility] Start: 10-05-2020 History 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 [employer] Phone: Start: 10-05-2020 End: 04-16-2021 History 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 [employer] Phone: Start: 07-12-2019 History SDOH Transpo rt Med 2 [employer] Phone: Start: 1950 Sex Assigned At Female [facility] [employer] Phone: Exposure to SARS-CoV -2 (event) Not sure [facility] Start: 04-16-2023 End: 06-02-2023 Sex Assigned At [facility] [employer] Other Start: 04-16-2021 History SDOH Financial 5 [employer] Work Phone: Housing Instability Unknown [facility] Start: 04-16-2023 Tobacco Comment quit in 1970s [facility] Start: 07-21-2018 Alcohol Comment social [facility] Start: 04-21-1968 End: 09-19-1972 History of tobacco use Cigarette Smoker [facility] Start: 11-13-2022 Tobacco Comment Stopped smokin years [facility] Start: 11-14-2022 Alcohol Comment Less than [address] [facility] Start: 04-25-2017 Tobacco smoking stat us NHIS Never smoked tobacco (finding) [facility] Medical Equipment Procedure Code Equipment Code Equipment Origin al Text Equipment Identifier Dates Cmnt Bn Bio 40gm Rpl [id number] - Sna - [id number] Start: 08-11-2018 Cmpt Ptlr 32mm N xgn Alply Rpl [id number] + [id number] + [id number] - Sna - [id number] Start: 08-11-2018 Plt Tib [id number] m Nxgn Kn Cmnt Rpl [id number] + [id number] - Sna - [id number] Start: 08-11-2018 Clinical Notes 01-18-2021 to 06-02-2023 Flavio Singleton NP - 06/02/2023 9:45 AM ESTGrangina Singleton NP - 05/22/2023 11:00 AM ESTPatient [...] Valgus: negative Other Erythema: absent Scars: present ([place] present, removed, no dehiscence or drainage) Sensation: [...] develop for requiring urgent evaluation. 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 She will call with any signs of infection. Questions answered in laymen terms at the bedside. The diagnosis, home exercise plan and any ongoing restrictions/ recommendations reviewed. If unable to be reached in office, I recommend evaluation at nearest Emergency Room if any symptoms worsened or new symptoms develop for requiring urgent evaluation. 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 Leg length discrepancy. COMPARISON: None FINDINGS: Measurements explicitly not requested by ordering surgeon. No acute fracture, dislocation, or destructive osseous lesion within the [id number]. Orthopedic hardware of the right knee and [...] Allan Gonsales MD on 04/16/2023 2:41 PM [facility] 04-16-2023 Note XR BONE LENGTH STUDY HISTORY: Preoperative evaluation. Leg length discrepancy. COMPARISON: None FINDINGS: Measurements explicitly not requested by ordering surgeon. No acute fracture, dislocation, or destructive osseous lesion within the [id number]. Orthopedic hardware of the right knee and ankle without evidence of failure or complication. Degenerative changes of the left knee and ankle. IMPRESSION: No evidence of acute osseous abnormality or orthopedic hardware failure/complication. Approved by Resident Aaron King MD on 04/16/2023 2:38 PM I, Allan Gonsales MD have personally reviewed the image(s) and agree with and/or edited the report Finalized by Allan Gonsales MD on 04/16/2023 2:41 PM [facility] 04-16-2023 Instructions Radhika Ocampo RN - 04/16/2023 [...] in at the main lobby of the [facility]- registration desk is straight ahead as soon as you walk in. Tell them you are here for surgery. 2. If you have a Living Will/Durable Power of Reference Test Clerk for Health Care that is not on [...] after you have bathed. 5. NO nail bruneian/acrylic on at least one finger. If you are having a hand, wrist or foot surgery then all nail bruneian and artificial/acrylic nails must be removed from [...] please call the [facility] office at [phone], Mon.-Fri. 7 a.m.-3 p.m. Leave a voicemail [...] go swimming or use a hot tub ([employer]), or perform activities where your incision is [...] with your doctor. documented in this encounter [employer] 06-19-2022 Note PROCEDURE: XR ANKLE RT MIN 3 VIEWS COMPARISON: 10/31/2021 HISTORY: Pain of right ankle joint FINDINGS: BONES:Ankle arthroplasty. No acute fracture, dislocation or mechanical failure. Subtalar fusion. Flattening of the plantar arch. Moderate degenerative changes SOFT TISSUES:Negative. No visible soft tissue swelling. EFFUSION:None visible. OTHER: Negative. IMPRESSION: Stable ankle arthroplasty and subtalar fusion Electronically authenticated by: MARY CHRISTIAN Date: 2022-06-19 18:05 [facility] 10-31-2021 Note PROCEDURE: XR ANKLE RT MIN 3 VIEWS COMPARISON: 04/24/2021 HISTORY: Pain of right ankle joint FINDINGS: BONES:Stable partial talus and tibial plafond arthroplasty. Subtalar fusion with cannulated screws. No acute fracture, dislocation or mechanical failure SOFT TISSUES:Soft tissue swelling EFFUSION:None visible. OTHER: Negative. IMPRESSION: Stable ankle replacement and subtalar fusion Electronically authenticated by: MARY CHRISTIAN Date: 2021-10-31 20:14 [facility] 10-31-2021 Note PROCEDURE: XR FOOT R [...] authenticated by: MARY CHRISTIAN Date: 2021-10-31 19:12 [facility] 06-11-2021 Evaluation note Encounter Date Diagnosis Assessment Notes May, Irritable bowel syndrome with diarrhea (ICD-10 - K58.0) [employer] Other 01-17-2022 Evaluation note* Encounter Date Diagnosis Assessment Notes Treatment Notes Treatment Clinical Notes Apr, Diarrhea (ICD-10 - R19.7) [employer] Other 11-18-2021 Evaluation note* Encounter Date Diagnosis Assessment Notes Treatment Notes Treatment Clinical Notes Feb, Irritable bowel syndrome with diarrhea (ICD-10 - K58.0) PATIENT STATES THAT SHE IS DOING WELL. PATIENT STATES THAT SHE HAS USED IMODIUM ONCE NEEDED. PATIENT IS ENCOURAGED CAN USE THE IMDOIUM DAILY WITH THE COLESTIPOL. [employer] Other 09-30-2021 Evaluation note* Encounter Date Diagnosis Assessment Notes Treatment Notes Treatment Clinical Notes Dec, Irritable bowel syndrome with diarrhea (ICD-10 - K58.0) Dec, Other Diarrhea material was printed START COLESIPOL 1 GRAM 2 PO DAILY OK TO USE IMODIUM PRN F/U HERE 6-8 WEEKS [employer] Other Evaluation note* Diagnosis Screening mammogram, encounter for documented in this encounter [employer] Phone: evaluation note* Diagnosis Dysuria documented in this encounter [employer] Phone: evaluation noteNo [employer] Other Evaluation note* Diagnosis Nevus Benign neoplasm of skin, site unspecified documented in this encounter [facility] Work Phone: evaluation note* Diagnosis Preop examination- Primary Unspecified pre-operative examination Hypertension, unspecified type Chronic obstructive pulmonary disease, unspecified COPD type ([facility]) Urinary frequency Osteoarthritis of left knee, unspecified osteoarthritis type Preop examination Unspecified pre-operative examination Hypertension, unspecified type Chronic obstructive pulmonary disease, unspecified COPD type ([facility]) Urinary frequency Preop examination Unspecified pre-operative examination Hypertension, unspecified type Chronic obstructive pulmonary disease, unspecified COPD type ([facility]) Urinary frequency Osteoarthritis of left knee, unspecified osteoarthritis type documented [facility]* Diagnosis Status post total left knee replacement- Primary documented in this encounter [facility]* Diagnosis Status post total left knee replacement- Primary documented in this encounter [facility] noteNo assessment [facility] Work Phone: History general Narrative - Reported* Type Description Date Medical History hypertension Medical History high cholesterol Surgical History CHOLECYSTECTOMY Surgical History RIGHT ARTHROSCOPY Surgical History RIGHT FOOT TOE REPLACEMENT Surgical History TUBAL LIGATION Surgical History RT KNEE REPLACEMENT 2018 Surgical History RT ANKLE 2018 Surgical History LEFT KNEE SCOPE 2019 Hospitalization History SEE ABOVE [employer] Other Reason for Referral Status Reason Specialty Diagnoses / Procedures Referred By Contact Referred To Contact Closed Radiology Diagnoses Visit for screening mammogram Procedures KENYA DIGITAL SCREEN W CAD BILATERAL HC MAMMO SCREENING INCL CAD IF PERF Elsie Jeffrey MD [address] [place] [address] Status Reason Specialty Diagnoses / Procedures Referre d By Contact Referred To Contact Closed Radiology Diagnoses Screening mammogram, encounter for Procedures KENYA MILAGRO DIGITAL SCREEN BILATERAL Karina Niño, JOY - CN [address] [facility] [address] [place] [address] Status Reason Specialty Diagnoses / Procedures Referred By Contact Referred To Contact Closed Radiology Diagnoses Screening mammogram, encounter for Procedures KENYA DIGITAL SCREEN W OR WO CAD BILATERAL Elsie Jeffrey MD [address] [place] [address] [place] [address] Assessments Diagnosis Visit for screening mammogram Other screening mammogram Advance Directives No Advanced Directives Records FoundDocuments on File Type Date Recorded Patient Jeep Driver Expl anation Advance Directives and Living Will Power of Reference Test Clerk Latest Code Status on File Code Status Date Activated Date Inactivated Comments Full Code 04/06/2019 10:44 AM Documents on File Type Date Recorded Patient Jeep Driver Expl anation ACP-Advance Directive ACP-Power of Reference Test Clerk Documents on File Type Date Recorded Patient Jeep Driver Expl anation Advance Directives and Living Will Power of Reference Test Clerk Latest Code Status on File Code Status Date Activated Date Inactivated Comments Full Code 04/06/2019 10:44 AM Documents on File Type Date Recorded Patient Jeep Driver Expl anation ACP-Advance Directive ACP-Power of Reference Test Clerk Healthcare Agents on File Name Relationship Healthcare [...] CAD IF PERF Elsie Jeffrey MD [address] [place] [address] Status Reason Specialty Diagnoses / Procedures Referred By Contact Referred To Contact Closed Radiology Diagnoses Screening mammogram, encounter for Procedures KENYA DIGITAL SCREEN W OR WO CAD BILATERAL Elsie Jeffrey MD [address] [place] [address] [place] [id number] Reason Comments Follow-up Care Teams (unrecognized sec tion and content) Associate Entertainment Editor Relationship Specialty Start Date End Date Elsie Jeffrey MD [address] [place] [address] PCP - General 08/17/13 Associate Entertainment Editor Relationship Specialty Start Date End Date Elsie Jeffrey MD [address] [place] [address] PCP - General Internal Medicine 07/21/18 Associate Entertainment Editor Relationship Specialty Start Date End Date Elsie Jeffrey MD [address] [place], [place] [id number] PCP - General Internal Medicine 11/08/22 Associate Entertainment Editor Relationship Specialty Start Date End Date Elsie Jeffrey MD [address] [place], [place] [id number] PCP - General Internal Medicine 11/08/22 Associate Entertainment Editor Relationship Specialty Start Date End Date Elsie Jeffrey MD [address] [place], [place] [id number] PCP - General Internal Medicine 11/08/22 Team [...] and content) DATE CREATED AUTHOR 06/25/2022 [facility] DATE CREATED AUTHOR AUTHOR'S ORGANIZ ATION 11/06/2022 [facility] DATE CREATED AUTHOR AUTHOR'S ORGANIZ ATION 05/17/2023 [facility] DATE CREATED AUTHOR AUTHOR'S ORGANIZ ATION 07/24/2023 [facility] DATE CREATED AUTHOR AUTHOR'S ORGANIZ ATION 08/05/2023 [facility] DATE CREATED AUTHOR AUTHOR'S ORGANIZ ATION 12/10/2023 [facility] DATE CREATED AUTHOR AUTHOR'S ORGANIZ ATION 02/10/2024 [facility] Goals (unrecognized section and content) Goals may [...] BE BASED ON THE PRIMARY CLINICAL RECORDS. [facility] [employer] provides no warranty or guarantee of the accuracy or completeness of information in this document.
--- NOTE | 2024-03-10 08:15 | P.CN_ITS ---
Consult Note: HPI Data of Consult Patient: known to practice within the last 3 years Consult date: 07/14/23 Requesting Physician: Kassie Andrade NP Primary Care Provider: ELSIE JEFFREY Consult Narrative Reason for consult: low back pain Narrative: 73yof who presents for evaluation. worsening left low back pain ongoing for years. has engaged in >6 weeks of provider directed home exercise program, with limited benefit. uses celebrex and flexeril with moderate benefit. denies adverse med side effects. recently underwent lumbar MRI, consistent with multilevel canal and neuroforaminal stenosis and facet hypertrophy. Patient reports pain improving, now 2-3/10 increasing to 3-4. Pain in low back without radiation, annoying stiff worse in the AM. significant improvement in function with medication regimen. cc:: CC: Kassie Andrade NP Review of Systems ROS Status of ROS 10 or more systems reviewed and unremark able except as noted in history and below Musculoskeletal Reports: back pain and joint pain; Denies: extremity pain PFSH PFSH Medical History Osteoarthritis ?M19.90 - Unspecified osteoarthritis, unspecified site (ICD-10) Acid reflux ?K21.9 - Gastro-esophageal reflux disease without esophagitis (ICD-10) COPD (chronic obstructive pulmonary disease) ?J44.9 - Chronic obstructive pulmonary disease, unspecified (ICD-10) Palpitations ?R00.2 - Palpitations (ICD-10) HTN (hypertension) ?I10 - Essential (primary) hypertension (ICD-10) Surgical History History of carpal tunnel release ?Z98.890 - Other specified postprocedural states (ICD-10) History of knee replacement ?Z96.659 - Presence of unspecified artificial knee joint (ICD-10) History of total ankle replacement ?Z96.669 - Presence of unspecified artificial ankle joint (ICD-10) History of arthroscopic knee surgery ?Z98.890 - Other specified postprocedural states (ICD-10) Hx of cholecystectomy ?Z90.49 - Acquired absence of other specified parts of digestive tract (ICD- 10) History of tubal ligation ?Z98.51 - Tubal ligation status (ICD-10) Meds Home Medications and Allergies Home Medications ?Medication ?Instructions ?Recorded ?Confirmed ?Type atorvastatin 40 mg tablet 40 mg PO DAILY 07/14/23 07/14/23 History budesonide-formoterol HFA 160 2 inh inhalation BID 07/14/23 07/14/23 History mcg-4.5 mcg/actuation aerosol inhaler (Breyna) celecoxib 200 mg capsule (Celebrex) 200 mg PO DAILY 07/14/23 07/14/23 History colestipol 1 gram tablet (Colestid) 1 g PO DAILY 07/14/23 07/14/23 History hydrochlorothiazide 25 mg tablet 25 mg PO DAILY 07/14/23 07/14/23 History lisinopril 10 mg tablet 10 mg PO DAILY 07/14/23 07/14/23 History loperamide 2 mg capsule 2 mg PO Q6H PRN loose stool 07/14/23 07/14/23 History loratadine 10 mg tablet (Claritin) 10 mg PO DAILY 07/14/23 07/14/23 History omeprazole 20 mg capsule,delayed 20 mg PO DAILY 07/14/23 07/14/23 History release cyclobenzaprine 10 mg tablet 10 mg PO BID 09/10/23 09/10/23 History Allergies Allergy/AdvReac Type Severity Reaction Status Date / Time codeine Allergy Verified 07/14/23 14:36 Exam Constitutional Documenting provider has reviewed patient's vital signs: yes Common normals: no apparent distress, oriented x3, healthy appearing, alert and well nourished General appearance: cooperative HENVA Common normals: normocephalic, hearing grossly normal bilaterally and moist oral mucous membranes Head and scalp: normocephalic Eye Common normals: PERRL Pupil: PERRL Neck & C-Spine Common normals: full ROM General: normal visual inspection Chest Common normals: inspection of chest normal Respiratory Common normals: normal respiratory effort, no retractions and no use of accessory muscles Back & Pelvis Lumbar spine/lower back: normal to inspection, pain with ROM and straight leg raise negative bilaterally Sacroiliac joints: SI joints normal Other: facet loading positive bilaterally tenderness over left L4-5 L5-S1 facets increased pain with standing and walking, improved with forward flexion and sitting Extremity Common normals: normal to inspection and full ROM Neuro Common normals: oriented x3, CN's II-XII intact bilaterally, moves all extremities, no focal motor deficits, no sensory deficits noted and deep tendon reflexes 2+ bilaterally Sensorium/orientation: alert Motor exam: strength 5/5 throughout and no movement abnormalities noted Psych Common normals: mental status grossly normal, thought process normal, cooperative, affect normal, speech normal and activity/motor behavior normal Speech: normal speech Thought process: normal thought process Assessment and Plan Assessment and Plan (1) Lumbar spondylosis: (2) Myofascial pain: (3) Lumbar stenosis with neurogenic claudication: Plan continue current medication regimen, tolerating well without side effects continue HEP as tolerated declining ESIs for lumbar stenosis with NC at this time f/u 6 months, sooner if needed
== END 2024-03-10 07:51 | disposition home or self-care (01) ==
LOC: PM 07:55
PROVIDERS: PCP Internal Medicine; Visit Provider Nurse Practitioner
DX: M47.816 Spondylosis without myelopathy or radiculopathy, lumbar region (principal); M79.18 Myalgia, other site; M48.062 Spinal stenosis, lumbar region with neurogenic claudication
CPT/HCPCS: G0463

== ENCOUNTER 2024-06-04 08:43 | Outpatient (OUT) | payer MEDICARE, SELFPAY ==
--- NOTE | 2024-06-04 08:54 | XR_ITS ---
The [address] [address] Patient Name: ALEXANDRE PATTEN MRN: [id number] date: 1950 Sex: F Assigned Patient Location: [facility] Current Patient Location: Accession/Order Number: [id number] Exam Date: 06/04/2024 10:25 Report Date: 06/05/2024 08:23 At the request of: DIOGO ARMANDO Procedure: XR chest 2V EXAMINATION: XR chest 2V HISTORY: Preop exam COMPARISON: No relevant comparison available. TECHNIQUE: PA and lateral FINDINGS: LUNGS: No significant pulmonary parenchymal abnormalities. VASCULATURE: No increased pulmonary vasculature. PLEURA: No pneumothorax, effusion, or pleural thickening. CARDIAC: No cardiomegaly or cardiac silhouette abnormality. MEDIASTINUM: No visible mass or adenopathy. Aortic Atherosclerosis BONES: No fracture or visible bone lesion. OTHER: Negative. XR/XR chest 2V IMPRESSION: No acute disease. Electronically authenticated by: MARY CHRISTIAN Date: 06/05/2024 08:23
--- NOTE | 2024-06-04 08:54 | ECG_ITS ---
[facility] Test Date: 2024-06-04 Pat Name: ALEXANDRE PATTEN Department: Room: - Gender: Female Rehabilitation Team Lead: : 1950 Requested By: Efren Toro Order Number: [id number] Reading MD: SARAI RUST Measurements Intervals [place] Rate: 71 P: 56 MO: 159 QRS: 19 QRSD: 86 T: 3 QT: 376 QTc: 410 Interpretive Statements SINUS RHYTHM Nonspecific ST/T wave changes Electronically Signed On 06-05-2024 8:22:10 EST by SARAI RUST
--- NOTE | 2024-06-04 09:35 | PM.PRESUREVA ---
History of Present Illness History of Present Illness Chief complaint: right carpal tunnel syndrome Narrative: Patient presents for presurgical testing. Patient reports a long history of right sided carpal tunnel syndrome, she states she had open left carpal tunnel release in the past. She denies trauma or injury. She currently takes Celebrex for generalized joint pain. Review of Systems ROS Narrative Please see ROS from Dr. Toro's office dated May 19, 2024. [facility] Medical History (Updated 06/04/24 @ 09:23 by Angeles Link NP) Neck pain ?M54.2 - Cervicalgia (ICD-10) Back pain ?M54.9 - Dorsalgia, unspecified (ICD-10) Arthritis ?M19.90 - Unspecified osteoarthritis, unspecified site (ICD-10) Seasonal allergies ?J30.2 - Other seasonal allergic rhinitis (ICD-10) IBS (irritable bowel syndrome) ?K58.9 - Irritable bowel syndrome, unspecified (ICD-10) Diarrhea ?R19.7 - Diarrhea, unspecified (ICD-10) Extremity edema ?R60.0 - Localized edema (ICD-10) High cholesterol ?E78.00 - Pure hypercholesterolemia, unspecified (ICD-10) Cataract ?H26.9 - Unspecified cataract (ICD-10) Carpal tunnel syndrome ?G56.00 - Carpal tunnel syndrome, unspecified upper limb (ICD-10) Osteoarthritis ?M19.90 - Unspecified osteoarthritis, unspecified site (ICD-10) Acid reflux ?K21.9 - Gastro-esophageal reflux disease without esophagitis (ICD-10) COPD (chronic obstructive pulmonary disease) ?J44.9 - Chronic obstructive pulmonary disease, unspecified (ICD-10) Palpitations ?R00.2 - Palpitations (ICD-10) HTN (hypertension) ?I10 - Essential (primary) hypertension (ICD-10) Surgical History (Updated 06/04/24 @ 09:23 by Angeles Link NP) History of colonoscopy ?Z98.890 - Other specified postprocedural states (ICD-10) History of arthroscopy of knee ?Z98.890 - Other specified postprocedural states (ICD-10) History of carpal tunnel release ?Z98.890 - Other specified postprocedural states (ICD-10) History of knee replacement ?Z96.659 - Presence of unspecified artificial knee joint (ICD-10) History of total ankle replacement ?Z96.669 - Presence of unspecified artificial ankle joint (ICD-10) History of arthroscopic knee surgery ?Z98.890 - Other specified postprocedural states (ICD-10) Hx of cholecystectomy ?Z90.49 - Acquired absence of other specified parts of digestive tract (ICD-10) History of tubal ligation ?Z98.51 - Tubal ligation status (ICD-10) Family History (Updated 06/04/24 @ 09:23 by Angeles Link NP) Other Family history of aneurysm Family history of cancer Family history of hypertension Family history of myocardial infarction Social History (Updated 06/04/24 @ 09:18 by Angeles Link NP) Within the past year, how often did you have a drink containing alcohol: monthly or less Smoking status: Former smoker Non-prescribed substance use: denies use Highest level of school completed/degree received: Bachelor's degree Meds Home Medications and Allergies Home Medications ?Medication ?Instructions ?Recorded ?Confirmed ?Type atorvastatin 40 mg tablet 40 mg PO DAILY 07/14/23 06/04/24 History celecoxib 200 mg capsule (Celebrex) 200 mg PO DAILY 07/14/23 06/04/24 History hydrochlorothiazide 25 mg tablet 25 mg PO DAILY 07/14/23 06/04/24 History lisinopril 10 mg tablet 10 mg PO QPM 07/14/23 06/04/24 History loperamide 2 mg capsule 2 mg PO Q6H PRN loose stool 07/14/23 06/04/24 History loratadine 10 mg tablet (Claritin) 10 mg PO DAILY 07/14/23 06/04/24 History budesonide-formoterol HFA 160 2 inh inhalation BID 06/04/24 06/04/24 History mcg-4.5 mcg/actuation aerosol inhaler (Symbicort) calcium 600 mg capsule 1,200 mg PO DAILY 06/04/24 06/04/24 History omeprazole 40 mg capsule,delayed 40 mg PO DAILY 06/04/24 06/04/24 History release Allergies Allergy/AdvReac Type Severity Reaction Status Date / Time codeine Allergy tachycardia Verified 06/04/24 09:13 Exam Narrative Exam Narrative: Constitutional: Awake, alert, comfortable, well-appearing, nontoxic, interactive, vital signs as charted Head: Normocephalic, atraumatic Neck: Supple, normal appearance, normal range of motion, no meningeal signs, no lymphadenopathy Respiratory: No respiratory distress, breath sounds clear Cardiovascular: Regular rate and rhythm, strong and regular heart tones Skin: No rashes or induration, no lesions, only visible skin inspected Neuro: No gross neurological deficits Psychiatric: Oriented ?3, normal affect Assessment and Plan Assessment and Plan (1) Carpal tunnel syndrome: Plan Right endoscopic carpal tunnel release, possible open scheduled with Dr. Toro to June 14, 2024.
[2024-06-04 10:06] LABS: Anion Gap 8.5; Calcium 8.9 mg/dL (8.5-10.1); Carbon Dioxide 32.6 mmol/L (21.0-32.0); Chloride 105 mmol/L (98-107); Estimated GFR (African America >60 (>=60 mL/min/1.73m^2); Estimated GFR (Non-African Ame >60 (>=60 mL/min/1.73m^2); Glucose 107 mg/dL (74-106); Potassium 4.1 mmol/L (3.5-5.1); Sodium 142 mmol/L (136-145)
[2024-06-04 10:15] LABS: BUN Creatinine Ratio 26.3
== END 2024-06-04 08:44 | disposition home or self-care (01) ==
LOC: PST 08:44
PROVIDERS: PCP Internal Medicine; Visit Provider Orthopaedic Surgery
DX: Z01.810 Encounter for preprocedural cardiovascular examination (principal); Z01.812 Encounter for preprocedural laboratory examination; Z01.818 Encounter for other preprocedural examination; G56.01 Carpal tunnel syndrome, right upper limb
CPT/HCPCS: 71046; 80048; 93005; G0463

== ENCOUNTER 2024-06-14 11:40 | Day surgery (SDC) | payer MEDICARE, SELFPAY ==
[2024-06-04 09:33] VITALS: BP 146/85; PULSE 84; TEMP 36.3; O2SAT 98; BMI 41.9
[2024-06-14 11:59] VITALS: BP 173/82; PULSE 91; TEMP 35.8; O2SAT 98; BMI 41.3
[2024-06-14] MEDS: LACTATED RINGER'S SOLUTION 1,000 ML 50 ML IV (12:23)
[2024-06-14] MEDS: CEFAZOLIN SODIUM 2 GM/50 ML D5W PREMIX IV (12:56)
[2024-06-14 13:38] VITALS: BP 139/81; PULSE 90; TEMP 36.6; O2SAT 95
--- NOTE | 2024-06-14 13:40 | PM.ORPRC ---
Procedure Note Date of procedure: 06/14/24 Pre-op diagnosis: Right carpal tunnel syndrome Post-op diagnosis: same as pre-op Procedure: Procedure: Right endoscopic carpal tunnel release Estimated blood loss:Minimal Tourniquet time: 3 Minutes at 225 mmHg Complications: None Indications for Surgery: The patient has had signs and symptoms of carpal tunnel syndrome that have failed conservative treatment. Options were discussed with the patient as well as risks and benefits and they have elected to proceed with the surgery. Operative procedure: Prior to surgery the patient received IV antibiotics. The operative extremity was marked preoperatively. After informed consent was obtained the patient was brought to the operating room where MAC anesthesia was administered. Preoperatively 5 mm 0.5% Marcaine plain with 5 mm 1% lidocaine with epinephrine were infiltrated in the operative sight. The right arm was then prepped and draped in the usual sterile fashion after placement of a well padded tourniquet. The arm was elevated, exsanguinated, and the tourniquet was inflated. A 1 cm incision was then made in a preexisting distal wrist crease. Hemostasis was achieved with bipolar electrocautery. Blunt dissection was then carried down to the forearm fascia where a U-based flap was created. Proximally the fascia was incised for 2 cm under direct visualization. Attention was then turned to the endoscopic carpal tunnel release. The synovial elevator was used to clear the underside of the transverse carpal ligament of soft tissue. Sequential dilators were then placed. The endoscopic carpal tunnel released instrument was then placed. The transverse fibers were then identified and release from distal to proximal. The ligament was completely release. The tourniquet was deflated and hemostasis was achieved. The wound was irrigated and closed with a nylon suture. A sterile dressing was placed. The patient was brought to the recovery room. There were no preoperative or postoperative complications. Anesthesia: MAC and local Surgeon: Efren Toro Estimated blood loss (mL): 1 Pathology: none sent Condition: stable Disposition: PACU
[2024-06-14 13:53] VITALS: BP 152/57; PULSE 84; O2SAT 96
[2024-06-14 14:08] VITALS: BP 170/81; PULSE 74; O2SAT 98
== END 2024-06-14 14:25 | disposition home or self-care (01) ==
PROVIDERS: PCP Internal Medicine; Visit Provider Orthopaedic Surgery
PROC: (CPT 29848; principal; 2024-06-14 13:00)
DX: G56.01 Carpal tunnel syndrome, right upper limb (principal); Z90.49 Acquired absence of other specified parts of digestive tract; Z98.51 Tubal ligation status; Z87.891 Personal history of nicotine dependence
CPT/HCPCS: 29848; 36415; J0690; J1100; J2250; J2704; J3010

== ENCOUNTER 2024-06-23 08:09 | Outpatient (OUT) | payer MEDICARE, SELFPAY ==
--- OUTSIDE RECORDS SUMMARY | 2024-06-23 08:13 | XMS_ITS | CCD ---
Author Organization [facility] Care Team Providers Care Upfitter Name Role Phone Elsie Jeffrey Primary Care Provider [phone] aMry Francis Unavailable Elsie Jeffrey MD Primary Care Provider [phone] DR MARY CHRISTIAN V Consulting Unavailable ALESHA, DR ZUNIGA Primary Care Unavailable KAVITHA PARSONS Attending Unavailable KAVITHA PARSONS Admitting Unavailable KAVITHA PARSONS Consulting Unavailable KAVITHA PARSONS Admitting Unavailable DR MARY CHRISTIAN V Consulting Unavailable ALESHA, DR ZUNIGA Primary Care Unavailable KAVITHA PARSONS Attending Unavailable KAVITHA PARSONS Consulting Unavailable ELSIE JEFFREY Referring Unavailable ELSIE JEFFREY Primary Care Unavailable FREDDY BADILLO JR Referring Unavailabl ELSIE Carney Primary Care Unavailable FREDDY BADILLO JR Referring Unavailabl ELSIE Carney Primary Care Unavailable FREDDY BADILLO JR Attending Unavailabl FREDDY Camilo JR Attending UnavailFREDDY Jiménez JR Referring Unavailabl [...] Unavailable Elsie Jeffrey MD Primary Care Provider [phone] Elsie Jeffrey MD Primary Care Unav Elsie Riojas MD Consulting Unav Skyler Monzon OD Attending Unavailable Dann LINDSAY, James Salgado Attending Unavailable Elsie Jeffrey MD Primary Care Unav ailable Dann, MD Ramirez Attending Provider MD Elsie Jeffrey Primary Care Provider Elsie Jeffrey Primary Care Unavailable Giedrazachariah, James Attending Unavailable Giedrazachariah, Gautamrius Admitting Unavailable SEAELSIE MORALES Attending Unavailable SEAELSIE MORALES Referring Unavailable SEARS, ELSIE Wilson Primary Care Unavailable SEARS, ELSIE Wilson Attending Unavailable SEARS, ELSIE Wilson Referring Unavailable SEARS, ELSIE Wilson Primary Care Unavailable SEARS, ELSIE Wilson Referring Unavailable SEARS, ELSIE Wilson Primary Care Unavailable ADOLFOCARMEN Admitting Unavailable ADOLFOCARMEN Attending Unavailable SEARS, ELSIE Wilson Primary Care Unavailable SEARS, ELSIE Wilson Attending Unavailable SEAELSIE MORALES Referring Unavailable SEARS, ELSIE Wilson Primary Care Unavailable SEAELSIE MORALES Attending Unavailable SEAELSIE MORALES Referring Unavailable SEARS, ELSIE Wilson Primary Care Unavailable DIOGO FOSS Attending Unavailable DIOGO ARMANDO Referring Unavailable FLAVIO SINGLETON Attending Unavailable FLAVIO SINGLETON Attending Unavailable FLAVIO SINGLETON Attending Unavailable FLAVIO SINGLETON Attending Unavailable FLAVIO SINGLETON Attending Unavailable FLAVIO SINGLETON Referring Unavailable FLAVIO SINGLETON Attending Unavailable DAPHNE CONWAY Attending Unavailable ANGEL PICKETT Attending Unavailable JR. SHAKEEL, FREDDY Weiss Attending Unavaila gaby BADILLO JR., GEORGE C Referring Unavaila DAPHNE Jimenez Attending Unavailable DAPHNE CONWAY Attending Unavailable Elsie Jeffrey MD Primary Care Provider Allergies Allergy Classification Reported Allergen(s) Allergy Type Date of Onset Reaction(s) Facility (4 sources) Caffeine Drug Allergy 0 [facility] Phone: (20 sources) Codeine; Translations: [CODEINE] Drug Allergy 4 Palpitations, anaphylaxis, Unknown, Tachycardia [facility] Phone: (1 source) Caffeine Drug Allergy 8 [facility] Rep[facility] (1 source) Codeine Drug Allergy [facility] (1 source) Codeine Drug Allergy [facility] Rep[facility] Medications Current Medications Medication Drug [...] days 20 tablet 0 05/20/2023 05/25/2023 Active [id number] 200 actuat albuterol 0.09 mg/actuat metered dose inhaler (17 sources) beta2-Adrenergic Agonist Start: 02-15-2016 take 2 [...] 4 (four) hours if needed for wheezing. Active take 2 puff(s) by in halation every six hours as needed for wheezing albuterol (PROVENTIL HFA;VENTOLIN HFA) 90 mcg/actuation inhaler Inhale 2 puffs every 6 (six) hours as needed for wheezing. 0 Active take 2 puff(s) by in halation every four hours as needed ProAir HFA 108 (90 Base) MCG/ACT 2 puffs as needed Inhalation every 4 hrs Not-Taking amoxicillin 500 mg oral capsule (6 sources) Penicillin-class Antibacterial Start: 05-27-2023 take 4 capsules by mouth every hour amoxicillin (Amoxil) 500 MG capsule take 4 capsules by mouth 1 hour prior to appointment 05/27/2023 Active aspirin 81 mg chewable tablet (2 sources) Platelet Aggregation Inhibitor, Nonsteroidal Anti-inflammatory Drug Start: 05-14-2023 End: 12-09-2023 aspirin 81 MG chewable tablet Chew 81 mg in the morning and 81 mg in the evening. 05/14/2023 12/09/2023 Discontinued (Discontinued by another clinician) atorvastatin 40 mg oral tablet (20 sources) HMG-CoA Reductase Inhibitor Start: 03-19-2019 take 1 tablet by mouth once daily atorvastatin (LIPITOR) 40 MG tablet take 1 tablet by mouth once daily 90 tablet 3 03/13/2021 Active 60 actuat budesonide 0.16 mg/actuat / formoterol fumarate 0.0045 mg/actuat metered dose inhaler (20 sources) Corticosteroid, beta2-Adrenergic Agonist Start: 10-09-2021 take [...] and incidence of candidiasis. Do not swallow.. Active take 2 puff(s) by in halation [...] Active calcium carbonate 1500 mg oral tablet (15 sources) take 1 tablet by mouth in the morning calcium carbonate (Calcium 600) 600 MG tablet Take 600 mg by mouth in the morning. Active take 1 tablet by mouth every twe lve hours Calcium 600 MG 1 tablet with meals Orally Twice a day Active Calcium Carbonate-Vit D-Min 600-400 MG-UNIT TABS (5 sources) take 1 tablet by mouth once daily Calcium Carbonate-Vit D-Min 600-400 MG-UNIT TABS Take 1 tablet by mouth daily 0 Active celecoxib 200 mg oral capsule (20 sources) Nonsteroidal Anti-inflammatory Drug Start: 05-14-19 19 take 1 capsule by mouth once daily celecoxib (CELEBREX) 200 MG capsule Take 1 capsule by mouth daily 90 capsule 3 06/28/2021 Active colestipol hydrochloride 1000 mg oral tablet (14 sources) Bile Acid Sequestrant Start: 03-12-20 End: 12-09-19 take 1 tablet by mouth in the morning colestipoL (COLESTID) 1 g tablet Take 1 tablet (1 g total) by mouth in the morning. 0 04/30/2022 Active Start: 01-18-2021 take 2 tablets by [facility] every twenty-four hours Colestipol HCl 1 GM 2 tablets Orally Once a day for 30 days Dec, Active cyclobenzaprine hydrochloride 10 mg oral tablet (6 sources) Muscle Relaxant Start: 08-07-2023 take 1 tablet by mouth in the morning cyclobenzaprine (Flexeril) 10 MG tablet Take 10 mg by mouth in the morning and 10 mg in the evening. 08/07/2023 Active diclofenac potassium 50 mg oral tablet (1 source) Nonsteroidal Anti-inflammator y Drug take 50 mg by mouth twice daily DICLOFENAC SODIUM ER PO Take 50 mg by mouth 2 times daily 0 Active folic acid 1 mg / polysaccharide iron complex 150 mg / vitamin b12 0.025 mg oral capsule (2 sources) Vitamin B12 Start: 04-28-2023 End: 05-28-2023 take 1 tablet by mouth in the morning Iron Polysacch [id number]-[id number] (Poly-Iron 150 Forte) 150-0.025-1 MG capsule Indications: Arthritis of left knee , Pre-op examination Take 1 tablet by mouth in the morning. 30 capsule 1 04/28/2023 05/28/2023 Active hydroCHLOROthiazide 25 mg oral tablet (20 sources) Thiazide Diuretic Start: 08-10-2018 take 1 tablet by mouth once daily hydroCHLOROthiazide (HYDRODIURIL) 25 MG tablet take 1 tablet by mouth once daily 90 tablet 3 08/10/2021 Active lisinopril 10 mg oral tablet (20 sources) Angiotensin Converting Enzyme Inhibitor Start: 04-06-2019 take 1 tablet by mouth once daily lisinopril (PRINIVIL;ZESTRIL) 10 MG tablet take 1 tablet by mouth once daily 90 tablet 3 02/16/2021 Active loperamide hydrochloride 2 mg oral capsule (19 sources) Opioid Agonist Start: 11-21-2020 take 1 capsule by mouth every twenty-fou r hours Loperamide HCl 2 MG 1 capsule Orally daily for 90 day(s) Nov, Active Start: 11-21-2020 [facility] Loperamide HCl 2 MG 1 CAPSULE Orally BID for 90 day(s) Nov, Not-Taking take 1 capsule by mo uth four times daily as needed for diarrhea loperamide (Imodium) 2 MG capsule Take 2 mg by mouth 4 (four) times a day as needed for diarrhea. Active loratadine 10 mg oral tablet (11 sources) loratadine (Claritin) 10 MG tablet Take by mouth. Active omeprazole 20 mg delayed release oral capsule (20 sources) Proton Pump Inhibitor Start: 01-12-2019 take 1 capsule by mouth once daily omeprazole (PRILOSEC) 20 MG delayed release capsule take 1 capsule by mouth once daily 90 capsule 3 12/28/2020 Active take 2 capsules by mouth before mealtime omeprazole (PriLOSEC) [address] capsule Take 40 mg by mouth in the morning. Take before meals. Do not crush or chew. . Active pantoprazole 40 mg delayed release oral tablet (2 sources) Proton Pump Inhibitor Start: 06-11-2021 take 1 tablet by mouth every twenty-four hours Pantoprazole Sodium 40 MG 1 tablet Orally Once a day for 30 day(s) May, Active sulfamethoxazole 800 mg / trimethoprim 160 mg oral tablet (2 sources) Dihydrofolate Reductase Inhibitor Antibacterial, Sulfonamide Antimicrobial Start: 04-26-2019 End: 05-03-2019 take 1 tablet by mouth twice daily sulfamethoxazole -trimethoprim (BACTRIM DS;SEPTRA DS) 800-160 MG per tablet [...] Documented Da te Episodic/Chronic Acquired foot deformities (12 sources) Hammer toe; Translations: [Other hammer toe(s) (acquired), left foot] Onset: 04-28-2023 04-28-2023 Chronic Chronic obstructive pulmonary disease and bronchiectasis (18 sources) Chronic obstructive lung disease; Translations: [Chronic obstructive pulmonary disease, unspecified] Onset: 08-14-2014 08-19-2016 Chronic Disorders of lipid metabolism (20 sources) Hyperlipidemia; Translations: [Mixed hyperlipidemia] Onset: 07-04-2014 Resolved: 08-19-2016 08-19-2016 Chronic Esophageal disorders (17 sources) Gastro-esophageal reflux disease with esophagitis; Translations: [Reflux esophagitis] Onset: 05-31-2014 05-31-2014 Chronic Essential hypertension (18 sources) Hypertensive disorder; Translations: [Essential (primary) hypertension] Onset: 05-16-1999 08-19-2016 Chronic Genitourinary symptoms and ill-defined conditions (3 sources) Dysuria; Translations: [Frequency of micturition] Onset: 04-16-2023 Episodic Joint disorders and dislocations; trauma-related (11 sources) Derangement of left knee; Translations: [Unspecified internal derangement of left knee] Onset: 04-28-2023 04-28-2023 Chronic Mycoses (2 sources) Onychomycosis; Translations: [Tinea unguium] 12-09-2023 Episodic Osteoarthritis (20 sources) Primary osteoarthritis, right ankle and foot; Translations: [Unilateral primary osteoarthritis, right knee] Onset: 08-10-2018 Chronic Other acquired deformities (11 sources) Equinus contracture of the ankle; Translations: [Contracture, right ankle] Onset: 04-28-2023 04-28-2023 Chronic Other acquired deformities (11 sources) Contracture of joint of left ankle; Translations: [Contracture, left ankle] Onset: 04-28-2023 04-28-2023 Chronic Other and unspecified benign neoplasm (1 source) Benign neoplasm of soft tissue; Translations: [Melanocytic nevi, unspecified] Episodic Other bone disease and musculoskeletal deformities (10 sources) 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, right ankle; Translations: [Aseptic necrosis of bone, other] Onset: 10-31-2021 Chronic Other bone disease and musculoskeletal deformities (5 sources) Osteonecrosis due to trauma; Translations: [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, right ankle] Onset: 04-28-2023 04-28-2023 Chronic Other congenital anomalies (12 sources) Porokeratosis; Translations: [Other specified congenital malformations of skin] Onset: 04-28-2023 04-28-2023 Chronic Other connective tissue disease (15 sources) History of total knee arthroplasty; Translations: [Presence of left artificial knee joint] Onset: 04-28-2023 05-22-2023 Chronic Other connective tissue disease (2 sources) Pain of toes of bilateral feet; Translations: [Pain in right toe(s)] 12-09-2023 Episodic Other gastrointestinal disorders (20 sources) Irritable bowel syndrome; Translations: [Irritable bowel syndrome without diarrhea] Onset: 05-31-2014 05-31-2014 Chronic Other gastrointestinal disorders (5 sources) Irritable bowel syndrome with diarrhea; Translations: [Irritable bowel syndrome with diarrhea] Chronic Other gastrointestinal disorders (3 sources) Irritable bowel syndrome with diarrhea; Translations: [Irritable bowel syndrome with diarrhea K58.0] Onset: 01-18-2021 Resolved: 06-11-2021 Chronic Other nervous system disorders (11 sources) Carpal tunnel syndrome of left wrist; Translations: [Carpal tunnel syndrome, left upper limb] Onset: 04-28-2023 04-28-2023 Chronic Other nervous system disorders (11 sources) Chronic pain; Translations: [Other chronic pain] Onset: 04-28-2023 04-28-2023 Chronic Other nervous system disorders (11 sources) Difficulty walking; Translations: [Difficulty in walking, not elsewhere classified] Onset: 04-28-2023 04-28-2023 Chronic Other nervous system disorders (2 sources) Carpal tunnel syndrome of right wrist; Translations: [Carpal tunnel syndrome, right upper limb] 05-13-2024 Chronic Other non-traumatic joint disorders (11 sources) Derangement of right ankle joint; Translations: [Other specific joint derangements of right ankle, not elsewhere classified] Onset: 04-28-2023 04-28-2023 Chronic Other nutritional; endocrine; and metabolic disorders (13 sources) Morbid obesity; Translations: [Morbid (severe) obesity [...] Onset: 02-06-2024 Episodic Other upper respiratory disease (16 sources) Allergic rhinitis; Translations: [Allergic rhinitis, unspecified] Onset: 05-31-2014 05-31-2014 Chronic Peripheral and visceral atherosclerosis (11 sources) Peripheral vascular disease, unspecified; Translations: [Peripheral vascular disease, unspecified] Onset: 04-28-2023 04-28-2023 Chronic Spondylosis; intervertebral disc disorders; other back problems (11 sources) Disorder of lumbar disc; Translations: [Unspecified [...] Classification Problem Date Documented Da te Episodic/Chronic Complication of device; implant or graft (11 sources) Mechanical complication of internal joint prosthesis; Translations: [Broken internal joint prosthesis, unspecified site, subsequent encounter] Onset: 04-28-2023 04-28-2023 Episodic Diabetes mellitus without complication (17 sources) Impaired fasting glycaemia; Translations: [Impaired fasting glucose] Onset: 08-19-2016 08-19-2016 Episodic Other bone disease and musculoskeletal deformities (16 sources) Osteopenia; Translations: [Other specified disorders of [...] forms of dyspnea] Onset: 04-30-2023 Episodic Other non-traumatic joint disorders (12 sources) Pain in left knee; Translations: [Pain in joint, lower leg] Onset: 04-28-2023 04-28-2023 Episodic Other non-traumatic joint disorders (11 sources) Pain in right knee; Translations: [Pain in joint, lower leg] Onset: 04-28-2023 04-28-2023 Episodic Other non-traumatic joint disorders (11 sources) Arthralgia of the ankle and/or foot; Translations: [Pain in right ankle and joints of right foot] Onset: 04-28-2023 04-28-2023 Episodic Other skin disorders (1 source) Acquired keratoderma; Translations: [Acquired keratosis [keratoderma] palmaris et plantaris] 12-09-2023 Episodic Results Test Name Value Interpretation Reference Range Facility EMG 1 [facility] NVC 7-8 Nerveson 05-13-2024 [facility] ALT-SGPTon 04-24-2024 ALT [Catalytic activity/Vol] 20 U/L Normal 5-33 [facility] AST-SGOTon 04-24-2024 AST-SGOT 18 U/L Normal 9-40 [facility] BASIC METABOLIC PANEL WITH G FRon 04-24-2024 Anion gap [Moles/Vol] 11 mmol/L Normal 7-16 [facility] Calcium [Mass/Vol] 9.0 mg/dL Normal 8.6-10.5 [facility] Chloride [Moles/Vol] 103 mmol/L Normal 96-107 [facility] CO2 [Moles/Vol] 28 mmol/L Normal 18-32 [facility] Creatinine [Mass/Vol] 0.76 mg/dL Normal 0.51-1.[address] [facility] GFR/1.73 sq M.predicted among non-blacks MDRD (S/P/Bld) [Vol rate/Area] 82 mL/min/{1.73_m2} Normal >59 [facility] Glucose [Mass/Vol] 101 mg/dL High 70-100 [facility] Potassium [Moles/Vol] 4.0 mmol/L Normal 3.5-5.[address] [facility] Sodium [Moles/Vol] 142 mmol/L Normal 135-148 [facility] Urea nitrogen [Mass/Vol] 17 mg/dL Normal 8-23 [facility] CBC NO DIFFon 04-24-2024 Erythrocyte distribution width (RBC) [Ratio] 12.7 % Normal 11.2-14.8 [facility] Hematocrit (Bld) [Volume fraction] 42.9 % Normal 35-47 [facility] Hemoglobin (Bld) [Mass/Vol] 14.0 g/dL Normal 11.9-16.0 [facility] MCH (RBC) [Entitic mass] 31.1 pg Normal 26.0-33.0 [facility] MCHC (RBC) [Mass/Vol] 32.6 g/dL Normal 32.0-35.[address] [facility] MCV (RBC) [Entitic vol] 95 fL Normal 75-100 [facility] PLATELET 244 THOUS/CMM Normal 140-440 [facility] RBC 4.50 MILL/CMM Normal 3.80-5.20 [facility] WBC 5.7 THDS/CMM Normal 3.6-11.0 [facility] HEMOGLOBIN A1Con 04-24-2024 Glucose [Mass/Vol] 114 mg/dL Normal <126 [facility] Comment on above: Result Comment: UNLE SS OTHERWISE INDICATED, ALL TESTING PERFORMED AT: [facility] [address] [place] [address] LINUX KERNEL ENGINEER: GIDEON MARSHALL M.D. CLIA NUMBER [id number] CAP ACCREDITATION AUID [id number] HbA1c (Bld) [Mass fraction] 5.6 % Normal <5.7 [facility] Comment on above: Result Comment: Pred iabetes: 5.7% to 6.4% Diabetes: >6.4% Glycemic control for adults with diabetes: <7.0% Use with caution in patients with abnormal hemoglobin variants as the half-life of red blood cells and in vivo glycation rates are affected. LIPID PANEL (INCLUDES CALCUL ATED LDL)on 04-24-2024 LDL-CHOL, CALCULATED 98 mg/dL Normal <130 [facility] Comment on above: Result Comment: ADUL T LDL CHOLESTEROL CLASSIFICATION <100mg/dL Optimal 100-129 Near/Above Optimal 130-159mg/dL Borderline High >160mg/dL High Risk Desirable range <100 mg/dL for patients with CHD or diabetes and <70 mg/dL for diabetic patients with known heart disease. Direct LDL is recommended for patients with triglycerides >400. VLDL-CHOL, CALCULATED 19 mg/dL Normal <30 [facility] Cholesterol.total/Chol esterol in HDL [Mass ratio] 2.7 {ratio} Normal 2.0-4.5 [facility] LDL/HDL 1.4 Normal <4.1 [facility] Comment on above: Result Comment: LDL/ HDL RATIO MALE FEMALE below average risk <2.3 <2.3 average risk <5.0 <4.1 moderate risk <7.1 <5.6 high risk >7.1 >5.6 Cholesterol [Mass/Vol] 186 mg/dL Normal 100-199 [facility] HDL-CHOL 69 mg/dL Normal >=50 [facility] Triglyceride [Mass/Vol] 94 mg/dL Normal 20-149 [facility] DIGITAL SCREEN SELF REFERRAL W OR WO CAD BILATERALon 02-06-2024 [facility] DIGITAL SCREEN SELF REFERRAL W OR [...] to the patient regarding the results. The [employer] recommends annual mammograms for women 40 years and older. Performing Facility: [place] [address] Interpreted by: Christopher Jean DO Signed by: Christopher Jean DO 02/06/24 Final result Normal [facility] ALT-SGPTon 10-29-2023 ALT [Catalytic activity/Vol] 23 U/L Normal 5-40 [facility] AST-SGOTon 10-29-2023 AST-SGOT 22 U/L Normal 9-40 [facility] BASIC METABOLIC PANEL WITH G FRon 10-29-2023 Anion gap [Moles/Vol] 9.0 mmol/L Normal 7.0-16.0 [facility] Calcium [Mass/Vol] 9.6 mg/dL Normal 8.5-10.5 [facility] Chloride [Moles/Vol] 103 mmol/L Normal 95-107 [facility] CO2 [Moles/Vol] 28 mmol/L Normal 19-31 [facility] Creatinine [Mass/Vol] 0.68 mg/dL Normal 0.60-1.30 [facility] GFR/1.73 sq M.predicted among non-blacks MDRD (S/P/Bld) [Vol rate/Area] 91 mL/min/{1.73_m2} Normal >60 [facility] Glucose [Mass/Vol] 98 mg/dL Normal 70-99 [facility] Potassium [Moles/Vol] 4.0 mmol/L Normal 3.5-5.4 [facility] Sodium [Moles/Vol] 140 mmol/L Normal 133-146 [facility] Urea nitrogen [Mass/Vol] 16 mg/dL Normal 8-23 [facility] CBC NO DIFFon 10-29-2023 Erythrocyte distribution width (RBC) [Ratio] 13.6 % Normal 11.5-15.0 [facility] Hematocrit (Bld) [Volume fraction] 42.2 % Normal 34.0-45.0 [facility] Hemoglobin (Bld) [Mass/Vol] 13.9 g/dL Normal 11.5-15.5 [facility] MCH (RBC) [Entitic mass] 31.0 pg Normal 25.0-33.0 [facility] MCHC (RBC) [Mass/Vol] 32.9 g/dL Normal 31.0-36.[address] [facility] MCV (RBC) [Entitic vol] 94.0 fL Normal 80.0-99.0 [facility] Platelet mean volume (Bld) [Entitic vol] 10.6 fL Normal 9.3-13.0 [facility] Platelets (Bld) [#/Vol] 233 10*3/uL Normal 130-400 [facility] RBC (Bld) [#/Vol] 4.49 10*6/uL Normal 3.80-5.40 [facility] WBC (Bld) [#/Vol] 5.2 10*3/uL Normal 3.5-11.0 [facility] LIPID PANEL (INCLUDES CALCUL ATED LDL)on 10-29-2023 Cholesterol [Mass/Vol] 178 mg/dL Normal <200 [facility] Cholesterol in LDL/Cholesterol in HDL [Mass ratio] 1.3 {ratio} Normal <3.22 [facility] Cholesterol.total/Chol esterol in HDL [Mass ratio] 2.6 {ratio} Normal <4.44 [facility] HDL-CHOL 68 mg/dL Normal >39 [facility] LDL-CHOL, CALCULATED 90 mg/dL Normal <100 [facility] Triglyceride [Mass/Vol] 102 mg/dL Normal <150 [facility] VLDL-CHOL, CALCULATED 20 mg/dL Normal <30 [facility] HEMOGLOBIN A1Con 10-28-2023 Glucose [Mass/Vol] 120 mg/dL High <117 [facility] Comment on above: Result Comment: [facility] [address] [place] [address] CLIA No. [id number] CAP Accreditation No. [id number] [employer] Vice President: Keke Islas M.D. HbA1c (Bld) [Mass fraction] 5.8 % High 4.2-5.6 [facility] Comment on above: Result Comment: [employer] GUIDELINES FOR HGB A1C: PREDIABETES/INCREASED [...] ETC.). CONSIDER ALTERNATE TESTING OR LABORATORY CONSULTATION. Surgical Pathology Reporton 08-14-2023 Surgical Pathology Report (NOTE) Path Number: [id number] -- Diagnosis -- A. STOMACH, ANTRUM, BIOPSIES: [...] cm in aggregate. Entirely 1cs. B. GLADIS SNAFAN, GE JUNCTION Received in formalin are three glez-white tissue fragments from 0.1 to 0.3 cm and are 0.5 x 0.2 x 0.1 cm in aggregate. Entirely 1cs. noah Loving M.D./mj:08/15/2023 Microscopic Description A, B. Microscopic examination performed. Processing Lab: [address] [place] [address] Interpretation Performed at [address] [address] SURGICAL PATHOLOGY CONSULTATION Patient Name: GLADIS PATTEN. Med Rec: [id number] [facility] [address] [place], [place] [address] [facility] XR pre/post mri xrayon 07-29 XR pre/post mri xray [facility] Main [place] [address] [place] [address] MRI Report Signed Patient: Gladis Patten MR#: [id number] 3 : 1950 Acct:[id number] Age/Sex: 72 / F ADM Date: 07/30/23 Loc: Room: Type: [facility] Attending Dr: James Quigley MD Copies to: James Quigley MD Ordering Provider: James Quigley MD Date of Service: 07/30/23 MR/MR lumbar spine wo con: LUMBAR STENOSIS ([id number]) XR/XR pre/post mri xray: LUMBAR STENOSIS MR [...] Miles Laughlin M.D.07/30/2023 4:39 PM Dictation Location: [place] [address] Transcribed By: [facility] 07/30/23 163 Dictated By: Miles Laughlin II, MD 07/30/23 163 Signed By: 07/30/23 1639 Normal [facility] XR KNEE LT 1 [...] Gonsales MD on 05/13/2023 11:10 AM Normal [facility] Bacteria identified Cx Nom ( U)on 04-17-2023 Service comment (Unsp spec) [Interp] 10-50,000 ORGANISMS/mL NORMAL UROGENITAL GRISEL [facility] ALT No additional P-5'-P [Ca talytic activity/Vol]on 04-16-2023 ALT [Catalytic activity/Vol] 20 U/L Normal 0-31 [facility] Comment on above: Performed By: #### C BCA, 1744-2, 1919-11, [facility], 42958-7 #### [facility] ([id number]) [address] [place] [address] Ady 04-16-2023 AST [Catalytic activity/Vol] 19 U/L Normal 0-41 [facility] Comment on above: Performed By: #### C BCA, 1744-2, 1919-11, [facility], 62961-1 #### [facility] ([id number]) [address], [address] [place] [address] BASIC METABOLIC PANLon 04-16 Anion gap [Moles/Vol] 8 mmol/L Normal 5-15 [facility] Comment on above: Performed By: #### C BCA, 1744-2, 1919-11, BMP, 62745-6 #### [facility] ([id number]) [address], [address] [place] [address] Calcium [Mass/Vol] 9.2 mg/dL Normal 8.5-10.5 [facility] Comment on above: Performed By: #### C BCA, 1744-2, 1919-11, BMP, 09026-5 #### [facility] ([id number]) [address], [address] [place] [address] Chloride [Moles/Vol] 103 mmol/L Normal 98-109 [facility] Comment on above: Performed By: #### Abhishek BCA, 4-2, 1919-11, BMP, 22429-2 #### [facility] ([id number]) [address], [address] [place] [address] CO2 [Moles/Vol] 29 mmol/L Normal 22-32 [facility] Comment on above: Performed By: #### Abhishek BCA, 4-2, 1919-11, BMP, 75896-8 #### [facility] ([id number]) [address], [address] [place] [address] Creatinine [Mass/Vol] 0.63 mg/dL Normal 0.40-1.00 [facility] Comment on above: Result Comment: METH OD TRACEABLE TO IDMS STANDARD Performed By: #### C BCA, 1744-2, 1919-11, BMP, 88673-3 #### [facility] ([id number]) [address], [address] [place] [address] eGFR (CKD-EPI) NON-RACE DEPENDENT >90 Normal >59 [facility] Comment on above: Result Comment: Reported eGFR is based on the CKD-EPI 2020 equation that does not use a race coefficient. Performed By: #### Abhishek GERONIMO, 1743-, 1919-11, BMP, 54362-9 #### [facility] ([id number]) [address], [address] [place] [address] Glucose [Mass/Vol] 103 mg/dL High 65-99 [facility] Comment on above: Performed By: #### Abhishek GERONIMO, 1743-2, 1919-11, BMP, 16867-9 #### [facility] ([id number]) [address], [facility] [address] [place] [address] Potassium [Moles/Vol] 3.7 mmol/L Normal 3.5-5.0 [facility] Comment on above: Performed By: #### Abhishek GERONIMO, 1743-05, 1919-11, BMP, 31205-0 #### [facility] ([id number]) [address], [address] [place] [address] Sodium [Moles/Vol] 140 mmol/L Normal 134-146 [facility] Comment on above: Performed By: #### Abhishek GERONIMO, 1743-05, 1919-11, BMP, 33430-0 #### [facility] ([id number]) [address], [address] [place] [address] Urea nitrogen [Mass/Vol] 17 mg/dL Normal 5-27 [facility] Comment on above: Performed By: #### Abhishek GERONIMO, 2, 1919-11, BMP, 05085-2 #### [facility] ([id number]) [address], [address] [place] [address] CBC AND AUTO DIFFon 04-16- 23 ABSOLUTE BASOPHIL 0.0 X10E9/L Normal 0.0-0.2 [facility] Comment on above: Performed By: #### Abhishek GERONIMO, 1743-2, 1919-11, BMP, 16344-6 #### [facility] ([id number]) [address], [address] [place] [address] ABSOLUTE NEUTROPHIL 3.7 X10E9/L Normal 1.5-6.6 [facility] Comment on above: Performed By: #### Abhishek BCA, 4-2, 1919-11, BMP, 83854-3 #### [facility] ([id number]) [address], [address] [place] [address] Basophils/100 WBC (Bld) 0.3 % Normal [facility] Comment on above: Performed By: #### Abhishek GERONIMO, 1743-, 1919-11, BMP, 69337-4 #### [facility] ([id number]) [address], [address] [place] [address] Eosinophils (Bld) [#/Vol] 0.1 10*3/uL Normal 0.0-0.4 [facility] Comment on above: Performed By: #### Abhishek GERONIMO, 1743-2, 1919-11, BMP, 49535-6 #### [facility] ([id number]) [address], [address] [place] [address] Eosinophils/100 WBC (Bld) 1.3 % Normal [facility] Comment on above: Performed By: #### Abhishek GERONIMO, 1743-2, 1919-11, BMP, 88318-9 #### [facility] ([id number]) [address], [address] [place] [address] Erythrocyte distribution width (RBC) [Ratio] 13.5 % Normal 11.5-15.0 [facility] Comment on above: Performed By: #### Abhishek BCA, 4-2, 1919-11, BMP, 93628-4 #### [facility] ([id number]) [address], [address] [place] [address] Hematocrit (Bld) [Volume fraction] 42.2 % Normal 35-47 [facility] Comment on above: Performed By: #### Abhishek GERONIMO, 4-2, 1919-11, BMP, 08107-9 #### [facility] ([id number]) [address], [address] [place] [address] Hemoglobin (Bld) [Mass/Vol] 14.3 g/dL Normal 11.7-15.5 [facility] Comment on above: Performed By: #### Abhishek GERONIMO, 4-2, 1919-11, BMP, 21800-8 #### [facility] ([id number]) [address], [facility] [address] [place] [address] Lymphocytes (Bld) [#/Vol] 1.3 10*3/uL Normal 1.0-3.5 [facility] Comment on above: Performed By: #### Abhishek GERONIMO, 1743-2, 1919-11, BMP, 32087-8 #### [facility] ([id number]) [address], [address] [place] [address] Lymphocytes/100 WBC (Bld) 23.2 % Normal [facility] Comment on above: Performed By: #### Abhishek GERONIMO, 1743-2, 1919-11, BMP, 01455-1 #### [facility] ([id number]) [address], [address] [place] [address] MCH (RBC) [Entitic mass] 31.6 pg Normal 27-34 [facility] Comment on above: Performed By: #### Abhishek BCA, 4-2, 1919-11, BMP, 52311-7 #### [facility] ([id number]) [address], [address] [place] [address] MCHC (RBC) [Mass/Vol] 33.8 g/dL Normal 32-36 [facility] Comment on above: Performed By: #### Abhishek GERONIMO, 4-2, 1919-11, BMP, 26632-4 #### [facility] ([id number]) [address], [address] [place] [address] MCV (RBC) [Entitic vol] 94 fL Normal 80-100 [facility] Comment on above: Performed By: #### Abhishek GERONIMO, 4-2, 1919-11, BMP, 80349-6 #### [facility] ([id number]) [address], [address] [place] [address] Monocytes (Bld) [#/Vol] 0.6 10*3/uL Normal 0-0.9 [facility] Comment on above: Performed By: #### Abhishek GERONIMO, 4-, 1919-11, BMP, 87625-3 #### [facility] ([id number]) [address], [address] [place] [address] Monocytes/100 WBC (Bld) 10.8 % Normal [facility] Comment on above: Performed By: #### Abhishek GERONIMO, 1743-, 1919-11, BMP, 06835-8 #### [facility] ([id number]) [address], [address] [place] [address] Neutrophils/100 WBC (Bld) 64.4 % Normal [facility] Comment on above: Performed By: #### Abhishek GERONIMO, 1743-, 1919-11, BMP, 73774-1 #### [facility] ([id number]) [address], [address] [place] [address] Platelet mean volume (Bld) [Entitic vol] 8.5 fL Normal 7-12 [facility] Comment on above: Performed By: #### Abhishek GERONIMO, 4-, 1919-11, BMP, 98147-6 #### [facility] ([id number]) [address], [address] [place] [address] Platelets (Bld) [#/Vol] 233 10*3/uL Normal 150-450 [facility] Comment on above: Performed By: #### Abhishek GERONIMO, 1743-2, 1919-11, BMP, 86099-7 #### [facility] ([id number]) [address], [address] [place] [address] RBC COUNT 4.52 X10E12/L Normal 3.80-5.20 [facility] Comment on above: Performed By: #### Abhishek GERONIMO, 4-2, 1919-11, BMP, 57945-0 #### [facility] ([id number]) [address], [facility] [address] [place] [address] WBC (Bld) [#/Vol] 5.7 10*3/uL Normal 4.0-11.0 [facility] Comment on above: Performed By: #### Abhishek GERONIMO, 1743-, 1919-11, BMP, 05815-3 #### [facility] ([id number]) [address], [address] [place] [address] HGB A1C (GLYCO-HGB)on 2022 Glucose [Mass/Vol] 117 mg/dL Normal [facility] Comment on above: Performed By: #### Abhishek GERONIMO, 1743-05, 1919-11, BMP, 20435-8 #### [facility] ([id number]) [address], [facility] [address] [place] [address] HbA1c (Bld) [Mass fraction] 5.7 % High 4.4-5.6 [facility] Comment on above: Result Comment: NOTE ADA Guidelines Result HgbA1c Normal : less than 5.7 % Prediabetes : 5.7 % to 6.4 % Diabetes : > 6.4 % Use with caution in patients with abnormal hemoglobin variants as the half-life of red blood cells and in vivo glycation rates are affected. Performed By: #### Abhishek GERONIMO, 4-2, 1919-11, BMP, 40638-8 #### [facility] ([id number]) [address], [address] [place] [address] Lipid 1996 panelon 3 Cholesterol [Mass/Vol] 162 mg/dL Normal 150-200 [facility] Comment on above: Performed By: ###Sebastián Weiss BCA, 1744-2, 1919-11, BMP, 88110-1 #### [facility] ([id number]) [address], [address] [place] [address] Cholesterol in HDL [Mass/Vol] 64 mg/dL Normal >39 [facility] Comment on above: Result Comment: HDL <40 mg/dL - High Risk HDL > or = 40mg/dL- Desirable HDL >60 mg/dL - Negative Risk Performed By: #### Abhishek GERONIMO, 1744-2, 1919-11, BMP, 00634-8 #### [facility] ([id number]) [address], [address] [place] [address] Cholesterol in LDL [Mass/Vol] 68 mg/dL Normal <130 [facility] Comment on above: Result Comment: LDL <100 mg/dL - Desirable LDL >160 mg/dL - High Risk Performed By: #### Abhishek GERONIMO, 1744-2, 1919-11, BMP, 24583-5 #### [facility] ([id number]) [address], [address] [place] [address] Cholesterol in VLDL [Mass/Vol] 30 mg/dL Normal 0-30 [facility] Comment on above: Performed By: ###Sebastián Weiss BCA, 1744-2, 1919-11, BMP, 43454-8 #### [facility] ([id number]) [address], [address] [place] [address] CHOLESTEROL:HDL 2.5 Normal 1.0-5.0 [facility] Comment on above: Performed By: #### C BCA, 1744-2, 1919-8, BMP, 10770-8 #### [facility] ([id number]) [address], [address] [place] [address] Triglyceride [Mass/Vol] 152 mg/dL High 27-150 [facility] Comment on above: Performed By: #### C BCA, 1744-2, 1919-11, BMP, 17440-1 #### [facility] ([id number]) [address], [address] [place] [address] URINALYSISon 04-16-2023 Bilirubin Ql (U) Negative Normal NEG [facility] BLOOD/HGB Negative Normal NEG [facility] Color (U) YELLOW Normal YELLOW [facility] Glucose Ql (U) Negative Normal NEG [facility] Ketones Ql (U) Negative Normal NEG [facility] Leukocyte esterase Test strip Ql (U) Negative Normal NEG [facility] Nitrite Ql (U) Negative Normal NEG [facility] pH (U) 6.5 [pH] Normal 5.0-8.5 [facility] Protein Ql (U) Negative Normal NEG [facility] Specific gravity (U) [Rel density] 1.006 Normal 1.003-1.035 [facility] TURBIDITY CLEAR Normal CLEAR [facility] Urobilinogen (U) [Mass/Vol] mg/dL Normal <1.1 [facility] URINE CULTUREon 04-16-2023 Bacteria identified Cx Nom (U) CULTURE RESULTS 10-50,000 ORGANISMS/mL NORMAL UROGENITAL GRISEL Normal [facility] Comment on above: Performed By: #### 6 30-4 #### [facility] ([id number]) [address], [address] [place] [address] Urinalysison 04-16-2023 Bilirubin Ql (U) Negative Negative^Ne g ative [facility] Color (U) YELLOW YELLOW^YELLO W [facility] Glucose (U) [Mass/Vol] Negative Negat светлана^Neg ative mg/dL [facility] Hemoglobin Auto test strip Ql (U) Negative Negative^Neg ative [facility] Ketones (U) [Mass/Vol] Negative Negat светлана^Neg ative mg/dL [facility] Leukocyte esterase Auto test strip Ql (U) Negative Negative^Neg ative [facility] Nitrite Auto test strip Ql (U) Negative Negative^Neg ative [facility] pH (U) 6.5 [pH] 5.0 - 8.5 [facility] Protein (U) [Mass/Vol] Negative Negat светлана^Neg ative mg/dL [facility] Specific gravity Refractometry automated (U) [Rel density] 1.006 1.003 - 1.035 [facility] Turbidity Ql (U) CLEAR CLEAR^CLEAR [facility] Urobilinogen Qn (U) NINF [facility] XR CHEST 2 VWSon 04-16-2023 XR [...] Bowden MD on 04/16/2023 10:02 AM Normal [facility] XR Chest PA and Lateralon HISTORY: [...] Carlos Bowden MD on 04/16/2023 10:02 AM [facility] Carlos Bowden MD - 04/16/2023 [...] Carlos Bowden MD on 04/16/2023 10:02 AM [facility] Radiology Study observation (narrative) [facility] XR Chest PA and LateralOrder ed By: Carlos Bowden on 04-16-2023 [facility] Work Phone: XR Femur and Tibia Views for leg lengthon 04-16-2023 Allan Gonsales M D - 04/16/2023 XR BONE LENGTH STUDY HISTORY: Preoperative evaluation. Leg length discrepancy. COMPARISON: None FINDINGS: Measurements explicitly not requested by ordering surgeon. No acute fracture, dislocation, or destructive osseous lesion within the [id number]. Orthopedic hardware of the right knee and [...] Allan Gonsales MD on 04/16/2023 2:41 PM [facility] Radiology Study observation (narrative) [employer] XR Femur and Tibia Views for leg lengthOrdered By: Allan Gonsales on 04-16-2023 [employer] Work Phone: MRI Brain w/ + w/o Contrasto n [...] Electronically Signed in Other Vendor System) Normal [facility] MRI Orbits w/ + w/o Contrast on [...] Electronically Signed in Other Vendor System) Normal [facility] KENYA DIGITAL SCREEN W CAD TIARA ATERALon 06-09-2019 No mammographic evidence for malignancy. BIRADS: BIRADS - CATEGORY 1 Negative, no evidence of malignancy. Normal interval follow-up is recommended in 12 months. OVERALL ASSESSMENT - NEGATIVE A letter of notification will be sent to the patient regarding the results. The [employer] [place] recommends annual mammograms for women 40 years and older. [facility] EXAMINATION: BILATERAL DIGITAL SCREENING MAMMOGRAM, 06/09/2019 8:16 [...] abnormality is identified on the tomosynthesis images. [facility] Shirley Elizabeth Incoming Radiant Results From [employer] - 06/09/2019 9:56 AM EST EXAMINATION: BILATERAL [...] to the patient regarding the results. The [place] recommends annual mammograms for women 40 years and older. [facility] Urinalysis With MicroscopicO rdered By: Karina Niño on 04-27-2019 - [employer] Phone: Amorphous, UA NOT REPORTED None [employer] Work Phone: Bacteria, UA 1+ Abnormal None [employer] Phone: Bilirubin Urine Negative NEGATIVE [employer] Work Phone: Casts UA NOT REPORTED /LPF [employer] Phone: Color, UA YELLOW YELLOW [employer] Phone: Crystals UA NOT REPORTED None /HPF [employer] [facility] [employer] Work Phone: Epithelial Cells UA 2 TO 5 [employer] Phone: Glucose, Ur Negative NEGATIVE [employer] Phone: Interpretation and review of laboratory results Abnormal [employer] Phone: Ketones Ql (U) Negative NEGATIVE [facility] Work Phone: Leukocyte esterase Test strip Ql (U) Negative NEGATIVE [facility] Work Phone: Mucus, UA NOT REPORTED None [facility] Work Phone: Nitrite, Urine Negative NEGATIVE [facility] Work Phone: Other Observations UA NOT REPORTED NOT REQ. [facility] Work Phone: pH, UA 6.0 [facility] [employer] Work Phone: Protein, UA Negative NEGATIVE [facility] Work Phone: RBC, UA None [facility] Work Phone: Renal Epithelial, Urine NOT REPORTED 0 /HPF [facility] [employer] Work Phone: Specific [place], UA 1.020 [facility] [employer] Work Phone: Trichomonas, UA NOT REPORTED None [facility] Work Phone: Turbidity UA CLEAR CLEAR [facility] [employer] Work Phone: Urinalysis Comments NOT REPORTED [facility] [employer] Work Phone: Urine Hgb Negative NEGATIVE [facility] [employer] Work Phone: Urobilinogen, Urine Normal Normal [facility] [employer] Work Phone: WBC, UA 2 TO 5 [facility] [employer] Work Phone: Yeast, UA NOT REPORTED None [facility] [employer] Work Phone: Vital Signs Date Time Vital Sign Value Performing Clinician Faci lity 04-27-2024 08:39-0500 Body height 152.4 cm Daphne Conway [facility] Work Phone: [facility] 04-27-2024 08:39-0500 Body mass index (BMI) [Ratio] 40.62 kg/m2 Daphne Conway DP Work Phone: [facility] [employer] 04-27-2024 08:39-0500 Body weight 94.35 kg Daphne Conway DPM Work Phone: [facility] 12-09-2023 09:32-0400 Body height 152.4 cm Daphne Conway DPM Work Phone: [facility] 12-09-2023 09:32-0400 Body mass index (BMI) [Ratio] 40.62 kg/m2 Daphne Conway DPM Work Phone: [facility] 12-09-2023 09:32-0400 Body weight 94.35 kg Daphne Conway DPM Work Phone: [facility] 07-30-2023 14:44-0400 Body height 152.4 cm MD Elsie Jeffrey Work Phone: [facility] 07-30-2023 14:44-0400 Body weight 94.34 kg MD Elsie Jeffrey Work Phone: [facility] 04-16-2023 09:13-0500 Body height 152.4 cm Pmh 2 [facility] 04-16-2023 09:13-0500 Body mass index (BMI) [Ratio] 41.79 kg/m2 Pm 2 [facility] 04-16-2023 09:13-0500 Body weight 97.07 kg Pm 2 [facility] 03-08-2021 11:15-0500 Body height 152.4 cm Mary Francis Other [employer] Other 03-08-2021 11:15-0500 Body mass index (BMI) [Ratio] 40.62 kg/m2 Mary Francis Other [employer] Other 03-08-2021 11:15-0500 Body weight 94.35 kg Mary Francis Other [employer] Other 01-18-2021 12:00-0400 Body height 152.4 cm Mary Francis Other [employer] Other 01-18-2021 12:00-0400 Body mass index (BMI) [Ratio] 41.2 kg/m2 Mary Francis Other [employer] Other 01-18-2021 12:00-0400 Body weight 95.71 kg Mary Francis Other [employer] Other Encounters Encounter Date Encounter Type Care Provider Facility Start: 05-11-2024 End: 05-11-2024 Bamboo flowsheet Diogo Foss MD Work Phone: [facility] Start: 05-11-2024 End: 05-11-2024 Bamboo flowsheet Diogo Foss MD Work Phone: [facility] Start: 05-11-2024 End: 05-11-2024 Patient encounter procedure Diogo Foss MD Work Phone: [facility] Comment on above: Carpal tunnel syndro me of right wrist (Primary Dx) Start: 05-11-2024 End: 05-11-2024 ambulatory DIOGO FOSS Not Available Start: 04-27-2024 End: 04-27-2024 Bamboo flowsheet Daphne Conway DPM Work Phone: [facility] Start: 04-27-2024 End: 04-27-2024 Bamboo flowsheet Daphne Conway DPM Work Phone: [facility] Start: 04-27-2024 End: 04-27-2024 ambulatory DAPHNE CONWAY Not Available Start: 04-27-2024 End: 04-27-2024 Patient encounter procedure Daphne Conway DPM Work Phone: [facility] Comment on above: Onychomycosis (Prima ry Dx); Pain in toes of both feet Start: 02-06-2024 End: 02-08-2024 [facility] Start: 12-09-2023 End: 12-09-2023 Bamboo flowsheet Daphne Conway DPM Work Phone: [facility] Start: 12-09-2023 End: 12-09-2023 Bamboo flowsheet Daphne Conway DPM Work Phone: [facility] Start: 12-09-2023 End: 12-09-2023 Patient encounter procedure Daphne Conway DPM Work Phone: [facility] Comment on above: Onychomycosis (Prima ry Dx); Pain in toes of both feet; Acquired keratoderma; Hammer toe of left foot; Porokeratosis Start: 12-09-2023 End: 12-09-2023 ambulatory DAPHNE CONWAY Not Available Start: 11-05-2023 End: 11-05-2023 ambulatory FREDDY BENAVIDEZ Not Available Start: 08-19-2023 End: 08-19-2023 ambulatory ANGEL Weber PIYUSH Not Available Start: 08-14-2023 End: 08-14-2023 ambulatory CARMEN Pradip ADOLFO [facility] Start: 08-05-2023 End: 08-05-2023 ambulatory DAPHNE CONWAY Not Available Start: 08-04-2023 End: 08-04-2023 ambulatory FLAVIO SINGLETON Not Available Start: 07-30-2023 End: 07-30-2023 ambulatory Elsie Jeffrey Facility:[facility] Start: 07-30-2023 End: 07-30-2023 ambulatory MD Elsie Jeffrey Work Phone: [facility] Work Phone: Start: 07-30-2023 End: 07-30-2023 Patient encounter procedure MD Elsie Jeffrey Work Phone: [facility] [place] Work Phone: Start: 07-14-2023 End: 07-15-2023 ambulatory James Quigley MD Facility: [facility] Start: 06-23-2023 End: 06-23-2023 ambulatory FLAVIO SINGLETON Not Available Start: 06-02-2023 Bamboo flowsheet Flavio Singleton 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 Work Phone: [facility] Start: 06-02-2023 Bamboo flowsheet Flavio Singleton 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 Work Phone: [facility] Start: 06-02-2023 End: 06-02-2023 Postop follow up visit related to original px Flavio Singleton 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 Work Phone: [facility] Comment on above: Status post total le ft knee replacement (Primary Dx) Start: 06-02-2023 End: 06-02-2023 ambulatory FLAVIO SINGLETON Not Available Start: 05-27-2023 End: 05-27-2023 ambulatory FLAVIO SINGLETON Not Available Start: 05-22-2023 End: 05-22-2023 Postop follow up visit related to original px Flavio Singleton 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 Work Phone: [facility] Comment on above: Status post total le ft knee replacement (Primary Dx) Start: 05-22-2023 End: 05-22-2023 ambulatory FLAVIO SINGLETON Not Available Start: 05-15-2023 End: 05-15-2023 ambulatory FLAVIO SINGLETON Not Available Start: 05-15-2023 End: 05-15-2023 ambulatory MARY SINGH [facility] Start: 05-13-2023 End: 05-15-2023 ambulatory [place] Abhishek BADILLO [facility] Start: 05-13-2023 End: 05-14-2023 ambulatory [place] Abhishek BADILLO [facility] Start: 05-08-2023 End: 05-09-2023 ambulatory BLISS Steve [facility] Start: 05-01-2023 End: 05-03-2023 amb[facility] Start: 04-30-2023 End: 05-02-2023 [facility] Start: 04-30-2023 Encounter for preprocedural cardiovascular examination ELSIE JEFFREY [facility] Start: 04-16-2023 End: 04-17-2023 ambulatory FREDDY Abhishek BADILLO [facility] Start: 04-16-2023 [facility] [facility] Start: 04-16-2023 End: 04-16-2023 Patient encounter procedure Pmh Pre-Admission Testing 2 [facility] - Pre Admit Comment on above: Preop examination (P rimary Dx); Hypertension, unspecified type; Chronic obstructive pulmonary disease, unspecified COPD type ([facility]); Urinary frequency; Osteoarthritis of left knee, unspecified osteoarthritis type Start: 04-16-2023 End: 04-16-2023 Preprocedural examination done Pm 2 [facility] Start: 09-15-2022 End: 09-16-2022 ambulatory Elsie Jeffrey MD Facility:[facility] Start: 06-19-2022 End: 06-20-[address] MARY CHRISTIAN Facility:[facility]1 Start: 10-31-2021 End: 11-01-2021 ambulatory KAVITHA PARSONS Facility:[facility]1 Start: 10-30-2021 End: 10-30-2021 Subsequent hospital visit by physician Elsie Jeffrey MD [facility] Phone[facility] Comment on above: Nevus Start: 06-11-2021 End: 06-11-2021 ambulatory Mary Francis Other [facility] Other Start: 06-11-2021 Telephone encounter Mary Francis [facility] Start: 05-07-2021 End: 05-07-2021 ambulatory Mary Francis Other [facility] Other Start: 05-07-2021 Telephone encounter Mary Francis [facility] Start: 03-08-2021 End: 03-08-2021 ambulatory Mary Francis Other [facility] Other Start: 03-08-2021 Office outpatient vi sit 15 minutes Mary Francis [facility] Start: 01-18-2021 Office outpatient vi sit 25 minutes Mary Francis [facility] Gastro[facility] Start: 12-11-2020 End: 12-13-2020 Subsequent hospital visit by physician [facility] Mammography Room At [facility] Mammography Comment on above: Screening mammogram, encounter for Start: 06-09-2019 End: 06-11-2019 Subsequent hospital visit by physician [facility] Mammography Room At [facility] Mammography Comment on above: Visit for screening mammogram Start: 04-27-2019 End: 04-27-2019 Subsequent hospital visit by physician Elsie Jeffrey MD Work Phone: [facility] Laboratory Comment on above: Dysuria Start: 04-26-2019 End: 04-26-2019 Subsequent hospital visit by physician Elsie Jeffrey MD Work Phone: [facility] Laboratory Procedures Date Procedure Procedure Detail Performing Clinician Start: 05-13-2024 End: 05-13-2024 Needle emg ea extremty w/paraspinl area complete Diogo Foss MD Work Phone: Start: 07-30-2023 XR pre/post mri xray MD Elsie Lorenz s Work Phone: Start: 07-30-2023 MR lumbar spine wo con MD Elsie ortiz Work Phone: Start: 04-28-2023 H/O: artificial joint History of right ankle joint replacement Flavio Singleton NP Work Phone: Start: 01-14-2023 Mammography Flavio Singleton NP Work Phone: Start: 11-08-2020 Colonoscopy Daphne Conway DPM Work Phone: Start: 06-09-2019 Screening digital breast tomosynthesis bill Jeffrey Work Phone: Start: 04-27-2019 Urnls dip stick/tablet reagent auto microscopy Karina Niño DRUM STENCILER - CNM Work Phone: Start: 07-01-2012 Colonoscopy Elsie Jeffrey MD Work Phone: Plan of Treatment Date Care Activity Detail Author Start: 11-08-2030 Screening for malign ant neoplasm of colon [facility] Start: 11-01-2024 End: 11-01-2024 Patient encounter procedure 11/01/2024 8:30 AM EDT Office Visit [facility] [address] [place] [phone] Jr. Freddy Badillo, DO [address] [place] [address] [facility] Start: 08-26-2024 End: 08-26-2024 Patient encounter procedure 08/26/2024 8:30 AM EDT Procedure Visit [facility] [address] [place] [phone] Daphne Conway, DPM [address] [place], [place] [phone] [facility] Start: 08-19-2024 End: 08-19-2024 Patient encounter procedure 08/19/2024 8:35 AM EDT Office Visit [facility] [address] [place] [address] Angel Pickett MD [address] [place] [address] [facility] Start: 05-11-2024 End: 05-11-2024 Patient encounter procedure 05/11/2024 10:30 AM EST Procedure Visit [facility] [address] [place] [address] Diogo Foss MD [address] [place] [id number] Arrived [facility] Comment on above: Arrived Start: 04-27-2024 End: 04-27-2024 Patient encounter procedure 04/27/2024 8:30 AM EST Procedure Visit [facility] [address] [place] [phone] Daphne Conway, DPM [address] [place] [address] [facility] Start: 04-16-2024 Adult BMI Screening Adult BMI Screen ing [facility] Start: 04-16-2024 Tobacco Screening Tobacco Screening [facility] Start: 01-15-2024 Screening for malign ant neoplasm of breast Mammogram [facility] Start: 01-09-2024 DTaP,Tdap and Td Vaccines (2 - Td or Tdap) DTaP,Tdap and Td Vaccines (2 - Td or Tdap) [facility] Start: 01-09-2024 DTaP/Tdap/Td vaccine (2 - Td or Tdap) DTaP/Tdap/Td vaccine (2 - Td or Tdap) [facility] Start: 01-09-2024 DTaP/Tdap/Td vaccine (2 - Td) DTaP/Tdap/Td vaccine (2 - Td) [facility] Work Phone: Start: 12-21-2023 Influenza vaccination Influenza Vacc ine (#1) [facility] Start: 12-09-2023 End: 12-09-2023 Patient encounter procedure 12/09/2023 9:30 AM EDT Procedure Visit [facility] [address] [place] [phone] Daphne Conway, DPM [address] [place], [place] [phone] Arrived [facility] Comment on above: Arrived Start: 08-19-2023 End: 08-19-2023 Patient encounter procedure 08/19/2023 8:35 AM EDT Office Visit [facility] [address] [place] [address] Angel Pickett MD [address] [place] [address] [facility] Start: 08-05-2023 End: 08-05-2023 Patient encounter procedure 08/05/2023 8:45 AM EDT Procedure Visit [facility] [address] [place] [phone] Daphne Conway, DPM [address] [place] [address] [facility] Start: 06-23-2023 End: 06-23-2023 Patient encounter procedure 06/23/2023 2:00 PM EST Office [facility] [address] [place] [phone] Flavio Singleton, 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 [address] [place], [place] [phone] [facility] Start: 06-02-2023 End: 06-02-2023 Patient encounter procedure 06/02/2023 9:45 AM EST Office [facility] [address] [facility] [phone] Flavio 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, 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 [address] [place] [address] Arrived [facility] Comment on above: Arrived Start: 05-27-2023 End: 05-27-2023 Patient encounter procedure 05/27/2023 9:30 AM EST Office [facility] [address] [place] [phone] Nato Whitaker PA [address] [place] [address] [place] [address] [facility] Start: 05-13-2023 End: 05-13-2023 Admission to same day surgery center 05/13/2023 7:45 AM EST - 05/13/2023 11:00 AM EST Surgery [facility] [address] [place] [phone] Freddy Badillo Jr., DO [address] [place] [address] REPLACEMENT TOTAL JOINT KNEE [62522 (CPT )] [facility] Comment on above: REPLACEMENT TOTAL JASPER INT KNEE [61774 (CPT )] Start: 05-13-2023 End: 05-13-2023 Arthrp kne condyle&platu medial&lat compartments REPLACEMENT TOTAL JOINT KNEE left knee degenerative joint disease 05/13/2023 7:45 AM EST [facility] Start: 05-13-2023 Subsequent hospital visit by physician 05/13/2023 7:45 AM EST Hospital Encounter [facility] [address] [place] [phone] Freddy Badillo Jr., DO [address] [place] [address] [facility] Start: 05-05-2023 End: 04-15-2024 Crossmatch RBC Crossmatch RBC Blood Bank Routine Preop examination Hypertension, unspecified type Chronic obstructive pulmonary disease, unspecified COPD type (CMS-HCC) Urinary frequency Expected: 05/05/2023, Expires: 04/15/2024 [facility] [employer] [facility] Comment on above: Expected: 05/05/2023 , Expires: 04/15/2024 Start: 05-05-2023 End: 04-15-2024 Type and screen(includes indirect lisa) Type and screen(includes indirect lisa) Blood Bank Routine Preop examination Hypertension, unspecified type Chronic obstructive pulmonary disease, unspecified COPD type (CMS-HCC) Urinary frequency Expected: 05/05/2023, Expires: 04/15/2024 [facility]: Comment on above: Expected: 05/05/2023 , Expires: 04/15/2024 Start: 12-20-2022 COVID-19 Vaccine () COVID-19 Vaccine () [facility] Start: 12-11-2022 Screening for malign ant neoplasm of breast Breast cancer screen [facility] Start: 07-01-2022 Screening for malign ant neoplasm of colon [facility] Start: 04-19-2022 End: 04-19-2022 Patient encounter procedure 04/19/2022 Office Visit Internal Medicine Elsie Jeffrey MD [address] [place] [address] [facility] Start: 04-17-2022 Annual Wellness Visi t (AWV) Annual Wellness Visit (AWV) [facility] Start: 04-16-2022 Depression Screen Depression Screen [facility] Start: 04-09-2022 Hemoglobin A1c measurement A1C test (Diabetic or Prediabetic) [facility] Start: 04-09-2022 Lipid panel Lipids [facility] Start: 12-20-2021 Influenza vaccination Flu vaccine (# 1) [facility] Start: 11-09-2021 End: 11-09-2021 Patient encounter procedure 11/09/2021 Office Visit Internal Medicine Elsie Jeffrey MD [address] [place] [address] [facility] [employer] Start: 09-26-2021 [facility] Start: 09-26-2021 Hemoglobin A1c measurement A1C test (Diabetic or Prediabetic) [facility] Work Phone: Start: 09-26-2021 Lipid panel Lipid screen [facility] Work Phone: Start: 09-26-2021 Potassium monitoring Potassium monit oring [facility] Work Phone: Start: 06-09-2021 Breast cancer screen Breast cancer s [facility] [place], [place] Start: 06-09-2021 Screening for malign ant neoplasm of breast Breast cancer screen [facility] Work Phone: Start: 04-16-2021 End: 04-16-2021 Patient encounter procedure 04/16/2021 Office Visit Internal Medicine Elsie Jeffrey MD [address] [place] [address] Wesley Jeffrey [facility] [employer] Start: 04-11-2021 Annual Wellness Visi t (AWV) Annual Wellness Visit (AWV) [facility] Phone: Start: 12-20-2020 Influenza vaccination Flu vaccine (# 1) [facility] Phone: Start: 12-04-2020 Shingles Vaccine (3 of 3) Shingles Vaccine (3 of 3) [facility] Phone: Start: 05-15-2020 Breast cancer screen Breast cancer s creen [facility] Phone: Start: 04-27-2020 Shingles Vaccine (2 of 3) Shingles Vaccine (2 of 3) [facility] Phone: Comment on above: Postponed from 06/16 (Unavailable) Start: 04-10-2020 End: 04-10-2020 Office Visit 04/10/2020 Office Visit Internal Medicine Elsie Jeffrey MD [address] [place] [address] Wesley [facility] [employer] Start: 04-06-2020 Annual Wellness Visi t (AWV) Annual Wellness Visit (AWV) [facility] Start: 04-05-2020 Annual Wellness Visi t (AWV) Annual Wellness Visit (AWV) [facility] Phone: Start: 03-30-2020 A1C test (Diabetic o r Prediabetic) A1C test (Diabetic or Prediabetic) [facility] Phone: Start: 03-30-2020 Creatinine monitoring Creatinine mon itoring [facility] Phone: Start: 03-30-2020 Lipid screen Lipid screen [employer] [facility] Work Phone: Start: 03-30-2020 Potassium monitoring Potassium monit oring [facility] Phone: Start: 02-09-2020 Colon cancer screen colonoscopy Colon cancer screen colonoscopy [facility] Phone: Start: 10-18-2019 End: 10-18-2019 Office Visit 10/18/2019 Office Visit Internal Medicine Elsie Jeffrey MD [address] [place] [address] Wesley [facility] [employer] Start: 06-09-2019 End: 06-09-2019 Patient encounter procedure 06/09/2019 Appointment Radiology [facility] Start: 04-27-2019 End: 04-27-2019 Patient encounter procedure 04/27/2019 Office Visit Obstetrics and Gynecology Karina Niño, DRUM STENCILER - CNM [address] [facility] [address] [place] [address] [employer]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 Start: 2013 Fall Risk Screening Fall Risk Screen ing [employer] Start: 06-16-2013 Shingles Vaccine (2 of 3) Shingles Vaccine (2 of 3) [facility] Phone: Start: 1993 Screening for malign ant neoplasm of colon [facility] [employer] Start: 1966 Adult BMI Follow Up Plan Adult BMI Follow Up Plan [employer] Start: 1960 Depression Screening Depression Scre ening [employer] Start: 1948 Medicare Annual Wellness Visit Medicare Annual Wellness Visit [employer] Start: 1948 Screening for malign ant neoplasm of colon [facility] End: 04-27-2019 Bacteria identified in Urine by Culture Urine Culture Microbiology Routine Dysuria 1 Occurrences starting 04/27/2019 until 04/27/2019 [facility] Phone: Comment on above: 1 Occurrences starti ng 04/27/2019 until 04/27/2019 Bacteria identified in Urine by Culture Urine Culture Microbiology Routine Dysuria 04/27/2019 12:04 PM EST [facility] Phone: End: 12-11-2020 KENYA DIGITAL SCREEN W OR WO CAD BILATERAL KENYA DIGITAL SCREEN W OR WO CAD BILATERAL Imaging Routine Screening mammogram, encounter for 1 Occurrences starting 12/11/2020 until 12/11/2020 [facility] Phone: Comment on above: 1 Occurrences starti ng 12/11/2020 until 12/11/2020 End: 12-11-2020 KENYA MILAGRO DIGITAL SCREEN BILATERAL KENYA MILAGRO DIGITAL SCREEN BILATERAL Imaging Routine Screening mammogram, encounter for 1 Occurrences starting 12/11/2020 until 12/11/2020 [facility] Phone: Comment on above: 1 Occurrences starti ng 12/11/2020 until 12/11/2020 KENYA MILAGRO DIGITAL SCR EEN BILATERAL KENYA MILAGRO DIGITAL SCREEN BILATERAL Imaging Routine Screening mammogram, encounter for 12/11/2020 12:14 PM EDT [facility] Phone: End: 10-30-2021 Surgical Pathology Surgical Pathology Lab Routine Nevus 1 Occurrences starting 10/30/2021 until 10/30/2021 [employer] Phone: Comment on above: 1 Occurrences starti ng 10/30/2021 until 10/30/2021 End: 10-30-2021 SURGICAL PATHOLOGY REPORT SURGICAL PATHOLOGY REPORT Lab Routine Once for 1 Occurrences starting 10/30/2021 until 10/30/2021 [employer] Phone: Comment on above: Once for 1 Occurrenc es starting 10/30/2021 until 10/30/2021 Immunizations Immunization Date Immunization Notes Care Provider [facility] 01-02-2024 influenza virus vaccine, unspecified formulation Daphne Conway DPM Work Phone: [facility] 01-15-2023 Influenza, Seasonal, Quadrivalent, Adjuvanted Flavio Singleton NP Work Phone: [facility] 01-15-2023 influenza virus vaccine, unspecified formulation Daphne Conway DPM Work Phone: [facility] 01-18-2022 Moderna Bivalent Booster Vaccination Flavio Singleton NP Work Phone: [facility] 01-09-2022 Influenza, Seasonal, Quadrivalent, Adjuvanted Flavio Singleton 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 Work Phone: [facility] 12-20-2020 Influenza, Quadv, adjuvanted, 65 yrs +, IM, PF (Fluad) Elsie Jeffrey MD Work Phone: [facility] Work Phone: 12-20-2020 zoster vaccine recombinant Elsie Jeffrey MD Work Phone: [facility] Work Phone: 10-09-2020 zoster vaccine recombinant Elsie Jeffrey MD Work Phone: [facility] Work Phone: 06-14-2020 COVID-19 Vaccine Pfi zer - Documentation Purposes Only Mary Duglasarnaud Other [facility] 05-24-2020 COVID-19 Vaccine Pfi zer - Documentation Purposes Only Mary Francis Other [facility] 12-15-2019 influenza virus vaccine, unspecified formulation [facility] Work Phone: 12-15-2019 influenza, injectabl e, quadrivalent, preservative free Flavio Singleton 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 Work Phone: [facility] 12-15-2019 Influenza, Quadv, adjuvanted, 65 yrs +, IM, PF (Fluad) [facility] Work Phone: 01-23-2019 Seasonal trivalent influenza vaccine, adjuvanted, preservative free Elsie Jeffrey MD Work Phone: [facility] Work Phone: 01-19-2019 influenza virus vaccine, unspecified formulation Flavio Singleton 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 Work Phone: [facility] 01-19-2019 influenza, injectabl e, quadrivalent, preservative free Flavio Singleton 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 Work Phone: [facility] 02-05-2018 influenza virus vaccine, unspecified formulation Elsie Jeffrey MD Work Phone: [facility] 02-05-2018 Seasonal trivalent influenza vaccine, adjuvanted, preservative free Flavio Singleton 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 Work Phone: [facility] 01-27-2018 influenza, injectabl e, quadrivalent, preservative free Flavio Franck 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 Work Phone: [facility] 01-19-2017 influenza, injectabl e, quadrivalent, preservative free Flavio Franck 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 Work Phone: [facility] 01-17-2017 influenza virus vaccine, unspecified formulation Elsie Jeffrey MD Work Phone: [facility] 01-17-2017 influenza, seasonal, injectable Flavio Franck 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 Work Phone: [facility] 01-02-2017 Seasonal trivalent influenza vaccine, adjuvanted, preservative free lFavio Singleton 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 Work Phone: [facility] 02-13-2016 pneumococcal polysaccharide vaccine, 23 valent Elsie Jeffrey MD Work Phone: [facility] Work Phone: 01-20-2016 pneumococcal polysaccharide vaccine, 23 valent [facility] Work Phone: 01-20-2016 seasonal influenza, intradermal, preservative free Flavio Singleton 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 Work Phone: [facility] 01-09-2016 Influenza Vaccine, unspecified formulation Elsie Jeffrey MD Work Phone: [facility] Work Phone: 01-09-2016 influenza virus vaccine, unspecified formulation Flavio Singleton 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 Work Phone: [facility] 01-09-2016 influenza, high dose seasonal, preservative-free Flavio Singleton 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 Work Phone: [facility] 02-06-2015 influenza, high dose seasonal, preservative-free Flavio Franck 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 Work Phone: [facility] 02-06-2015 pneumococcal conjuga te vaccine, 13 valent Flavio Singleton 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 Work Phone: [facility] 01-19-2015 Influenza Vaccine, unspecified formulation Elsie Jeffrey MD Work Phone: [facility] Work Phone: 01-19-2015 influenza virus vaccine, unspecified formulation Flavio Singleton NP Work Phone: [facility] 01-19-2015 pneumococcal conjuga te vaccine, 13 valent Elsie Jeffrey MD Work Phone: [facility] Work Phone: 01-08-2014 tetanus toxoid, redu dona diphtheria toxoid, and acellular pertussis vaccine, adsorbed Elsie Jeffrey MD Work Phone: [facility] 04-21-2013 zoster vaccine, live Michel bere Jeffrey MD Work Phone: [facility] Work Phone: 03-14-2009 novel [id number], preservative-free, injectable Flavio Singleton NP Work Phone: [facility] Payers Date Payer Category Payer Self-pay [id number] 2014 Medicare MEDICARE MEDICAR E PART A AND B xxxxxxxxxxx 2014-Present [phone] [address] [address] [place] [address] xxxxxxxxxxx [id number] 2014 Private Health Insurance AET[employer] A ETNA SENIOR MEDICARE SUPP xxxxxxxxxx 2014-Present [phone] [address] [place] [address] xxxxxxxxxx [id number] 2014 Private Health Insurance [id number] .[id number] 2014 Private Health Insurance [id number] 2014 Medicare [id number] .[id number] 1959 Medicare [id number] .[id number] 1959 Private Health Insurance [facility] [id number] .[id number] 1948 Unknown [id number] 2.16.840.1.463468.3.579.2 .593 1948 Unknown [id number] 2.16.840.1.697899.3.579.2 .593 1948 Unknown [id number] 2.16.840.1.615071.3.579.2 .1286 1948 Unknown [id number] 2.16.840.1.373573.3.579.2 .1286 1948 Unknown [id number] 2.16.840.1.762715.3.579.2 .1286 1948 Unknown [id number] 2.16.840.1.821166.3.579.2 .1286 1948 Unknown [id number] 2.16.840.1.280444.3.579.2 .1286 1948 Unknown [id number] 2.16.840.1.590874.3.579.2 .1286 1948 Unknown [id number] 2.16.840.1.546419.3.579.2 .128 1948 Unknown [id number] 2.16.840.1.878490.3.579.2 .1286 1948 Unknown [id number] 2.16.840.1.441716.3.579.2 .1286 1948 Unknown [id number] 2.16.840.1.251336.3.579.2 .1286 1948 Unknown [id number] 2.16.840.1.752297.3.579.2 .196 1948 Unknown [id number] 2.16.840.1.877138.3.579.2 .196 1948 Unknown [id number] 2.16.840.1.679981.3.579.2 .173 1948 Unknown [id number] 2.16.840.1.828449.3.579.2 .173 1948 Unknown [id number] 2.16.840.1.430506.3.579.2 .173 1948 Unknown [id number] 2.16.840.1.481917.3.579.2 .173 1948 Unknown [id number] 2.16.840.1.443818.3.579.2 .173 1948 Unknown [id number] 2.16.840.1.985916.3.579.2 .173 1948 Unknown [id number] 2.16.840.1.649815.3.579.2 .1259 1948 Unknown [id number] 2.16.840.1.895578.3.579.2 .125 1948 Unknown [id number] 2.16.840.1.798712.3.579.2 .1259 1948 Unknown [id number] 2.16.840.1.471560.3.579.2 .125 1948 Unknown [id number] 2.16.840.1.243622.3.579.2 .1259 1948 Unknown [id number] 2.16.840.1.685609.3.579.2 .125 1948 Unknown [id number] 2.16.840.1.595684.3.579.2 .1259 1948 Unknown [id number] 2.16.840.1.246827.3.579.2 .9 1948 Unknown [id number] 2.16.840.1.942276.3.579.2 .9 1948 Unknown [id number] 2.16.840.1.777273.3.579.2 .1258 1948 Unknown [id number] 2.16.840.1.626187.3.579.2 .9 1948 Unknown [id number] 2.16.840.1.244744.3.579.2 .9 1948 Unknown [id number] 2.16.840.1.180126.3.579.2 .9 1948 Unknown [id number] 2.16.840.1.694171.3.579.2 .1258 Unknown [id number] 2.16.840.1.225197.3.579.2 .531 Social History Date Type Detail Facility Start: 04-27-2019 End: 04-16-2023 Tobacco smoking status [facility] Former smoker [facility] Phone: Start: 04-21-1968 End: 09-19-1972 History of tobacco use Current smoker [facility] Phone: Start: 04-27-2019 End: 06-01-2020 Cigarettes smoked current (pack per day) - Reported [facility] Phone: Start: 04-27-2019 End: 04-16-2023 Alcohol intake Current drinker of alcohol (finding) [employer] Work Phone: Start: 02-05-2012 Alcohol Comment socially [facility] Work Phone: Start: 1950 Sex Assigned At Not on file [facility] Work Phone: Start: 12-11-2020 End: 04-16-2023 Tobacco use and exposure Never used [employer] Start: 10-05-2020 History 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 [facility] Phone: Start: 10-05-2020 End: 04-16-2021 History 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 [facility] Phone: Start: 07-12-2019 History SDOH Transpo rt Med 2 [employer] Work Phone: Start: 1950 Sex Assigned At Female M [employer] Work Phone: Exposure to SARS-CoV -2 (event) Not sure [employer] Start: 06-01-2020 End: 05-22-2023 Sex Assigned At [facility] [employer] Other Start: 04-16-2021 History SDOH Financial 5 [facility] [employer] Phone: Start: 04-21-1968 End: 09-19-1972 History of tobacco use Cigarette Smoker [facility] Start: 11-13-2022 Tobacco Comment Stopped smokin years [facility] Start: 11-14-2022 Alcohol Comment Less than 1 per week [facility] Start: 04-25-2017 Tobacco smoking stat us [facility] Never smoked tobacco (finding) [facility] Housing Instability Unknown [facility] Start: 04-16-2023 Tobacco Comment quit in 1970s [facility] Start: 07-21-2018 Alcohol Comment social [facility] Medical Equipment Procedure Code Equipment Code Equipment Origin al Text Equipment Identifier Dates Cmnt Bn Bio 40gm Rpl [id number] - Sna - [id number] Start: 08-11-2018 Cmpt Ptlr 32mm N xgn Alply Rpl [id number] + [id number] + [id number] - Sna - [id number] Start: 08-11-2018 Plt Tib [id number] Nxgn Kn Cmnt Rpl [id number] - Sna - [id number] Start: 08-11-2018 Clinical Notes 01-18-2021 to 05-11-2024 Daphne Arnold MA - 05/11/2024 10:30 AM Daisha Conway DPM - 04/27/2024 8:30 AM Daisha Conway DPM - 12/09/2023 9:30 AM Anders Singleton NP - 06/02/2023 9:45 AM ESTPatient Instructions Note Date & Type Note Facility 05-11-2024 History of Present illness Narrative Images from the original note were not included. Reason for Appointment: EMG Patient: Gladis Patten : 1950 EMG Computer: [employer] Referring Physician: Dr. 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 Worse in digits 1-3. Will radiate to the rest of the hand and have burning pain. No Hx of DM, not taking blood thinners. Comments: Procedure explained to the patient who expressed understanding. documented in this encounter [facility] 04-27-2024 History of Present illness Narrative Images from the original note were not included. Subjective Patient ID: Gladis Patten is a 73 y.o. female who presents for Toenail Care (PT is here today requesting nail care, no other concerns/SS: 8.5). Established patient presents complaining of elongated nails that are fungal. She is requesting nail debridement today Review of Systems Current Outpatient Medications: albuterol HFA 90 mcg/act inhaler, Inhale 2 puffs every 4 (four) hours if needed for wheezing., Disp: , Rfl: amoxicillin (Amoxil) 500 MG capsule, take 4 capsules by mouth 1 hour prior to appointment, Disp: , Rfl: atorvastatin (Lipitor) 40 MG tablet, Take 40 mg by mouth in the morning., Disp: , Rfl: budesonide-formoterol (Symbicort) 160-4.5 MCG/ACT inhaler, Inhale 2 puffs in the morning and 2 puffs before bedtime. Rinse mouth with water after use to reduce aftertaste and incidence of candidiasis. Do not swallow.., Disp: , Rfl: calcium carbonate (Calcium 600) 600 MG tablet, Take 600 mg by mouth in the morning., Disp: , Rfl: celecoxib (CeleBREX) 200 MG capsule, Take 200 mg by mouth in the morning., Disp: , Rfl: cyclobenzaprine (Flexeril) 10 MG tablet, Take 10 mg by mouth in the morning and 10 mg in the evening., Disp: , Rfl: hydroCHLOROthiazide (HYDRODiuril) 25 MG tablet, Take 25 mg by mouth in the morning., Disp: , Rfl: lisinopril 10 MG tablet, Take 10 mg by mouth in the morning., Disp: , Rfl: loperamide (Imodium) 2 MG capsule, Take 2 mg by mouth 4 (four) times a day as needed for diarrhea., Disp: , Rfl: loratadine (Claritin) 10 MG tablet, Take by mouth., Disp: , Rfl: omeprazole (PriLOSEC) [address] capsule, Take 40 mg by mouth in the morning. Take before meals. Do not crush or chew. ., Disp: , Rfl: Codeine Past Surgical History: Procedure Laterality Date CHOLECYSTECTOMY 01/19/2010 GALLBLADDER SURGERY JOINT REPLACEMENT 08/11/2017, 07/11/2018 OTHER SURGICAL HISTORY Right 2014 Resection proximal phalanx 5th digit - foot - Dr. Conway NC KNEE SCOPE,DIAGNOSTIC Bilateral Right: 2016; left: 2019; Dr. Badillo [place] RELEASE FOOT/TOE NERVE Right 2012 Jarocho toe replacement - Dr. Yahir MILLER TOTAL ANKLE REPLACEMENT 08/2017 Beti Fukn TOTAL KNEE ARTHROPLASTY 08/11/2018 Dr. Badillo TOTAL KNEE ARTHROPLASTY Left 05/13/2023 Dr Badillo TUBAL LIGATION Family History Problem Relation Name Age of Onset Cancer Mother Jen Zendejas Hypertension Mother Jen Zendejas Arthritis Mother Jen Zendejas Cancer Brother Allan Zendejas COPD Brother Allan Zendejas Diabetes Maternal Grandmother Melonykarie Niño Diabetes Paternal Grandmother Radhika Kayeer Heart disease Sibling Melanoma Neg Hx Objective Physical Exam Constitutional: Appearance: Normal appearance. HENT: Head: Normocephalic and atraumatic. Cardiovascular: Comments: Pedal pulses: DP 2/4 bilateral, PT 2/4 bilateral. Skin temp is warm to warm. Varicosities: absent Hair growth: present Musculoskeletal: General: No deformity. Right lower leg: Edema present. Left lower leg: No edema. Comments: DEFORMITIES: History of hammertoe surgery fifth toe right foot and a jarocho-toe implant right great toe. R 1st MTPJ ROM is essentially zero but is pain free for pt. Hallux sits in dorsiflexed position on met head. Hx of Ankle joint replacement R. L 1st MTPJ ROM is limited. Flexible contracted digits 2,3,4 b/l. PAIN: pain at nails Skin: General: Skin is warm. Capillary Refill: Capillary refill takes 2 to 3 seconds. Comments: SKIN FINDINGS:cicatrix dorsal R 1st MTPJ and R anterior ankle. web spaces are clean/dry no erythema or ecchymosis noted . HYPERKERATOSIS:There is hyperkeratotic tissue with central nucleated core noted at dorsal lateral 5th DIPJ. Mild callus noted L distal tuft of 3rd digit. NAIL PATHOLOGY:Nails 2 and 3 R are malformed, 4mm thick, U shaped, discolored, fungal. Nails 2 and 3 L foot are discolored, 4mm thick, incurvated, with subungal debris. L Hallux nail is dystrophic. ULCER:none. Neurological: Mental Status: She is alert and oriented to person, place, and time. Comments: Light touch sensation intact VIBRATORY:Able to feel vibration beginning and ceasing medial and lateral column left and right foot.. SEMMES-AMADO 5.07 MONOFILAMENTintact 10/10 sites. Normal response to stimuli. Psychiatric: Mood and Affect: Mood normal. 15831 Assessment/Plan ICD-10-CM 1. Onychomycosis B35.1 2. Pain in toes of both feet M79.674 M79.675 All mycotic nails were debrided in length and thickness by manual and mechanical means. Small and large nail nipper used along with electronic caitlyn. Advised patient of proper foot care to prevent any future complications. Return as needed if problems arise This note was created with the assistance of a speech recognition program. While intending to generate a timely document that accurately reflects the content of the visit, no guarantee can be provided that every grammatical or spelling mistake has been or will be identified or corrected. Thank you for your understanding. Daphne Conway DPM documented in this encounter [facility] 12-09-2023 History of Present illness Narrative Images from the original note were not included. Subjective Patient ID: Gladis Patten is a 73 y.o. female who presents for Toenail Care (Pt presents today for nail and callus care. /SS: 8.5). Patient presents complaining of elongated, thick, fungal nails. She is requesting nail debridement today. Review of Systems Current Outpatient Medications: albuterol HFA 90 mcg/act inhaler, Inhale 2 puffs every 4 (four) hours if needed for wheezing., Disp: , Rfl: amoxicillin (Amoxil) 500 MG capsule, take 4 capsules by mouth 1 hour prior to appointment, Disp: , Rfl: atorvastatin (Lipitor) 40 MG tablet, Take 40 mg by mouth in the morning., Disp: , Rfl: budesonide-formoterol (Symbicort) 160-4.5 MCG/ACT inhaler, Inhale 2 puffs in the morning and 2 puffs before bedtime. Rinse mouth with water after use to reduce aftertaste and incidence of candidiasis. Do not swallow.., Disp: , Rfl: calcium carbonate (Calcium 600) 600 MG tablet, Take 600 mg by mouth in the morning., Disp: , Rfl: celecoxib (CeleBREX) 200 MG capsule, Take 200 mg by mouth in the morning., Disp: , Rfl: cyclobenzaprine (Flexeril) 10 MG tablet, Take 10 mg by mouth in the morning and 10 mg in the evening., Disp: , Rfl: hydroCHLOROthiazide (HYDRODiuril) 25 MG tablet, Take 25 mg by mouth in the morning., Disp: , Rfl: lisinopril 10 MG tablet, Take 10 mg by mouth in the morning., Disp: , Rfl: loperamide (Imodium) 2 MG capsule, Take 2 mg by mouth 4 (four) times a day as needed for diarrhea., Disp: , Rfl: loratadine (Claritin) 10 MG tablet, Take by mouth., Disp: , Rfl: omeprazole (PriLOSEC) [address] capsule, Take 40 mg by mouth in the morning. Take before meals. Do not crush or chew. ., Disp: , Rfl: Codeine Past Surgical History: Procedure Laterality Date CHOLECYSTECTOMY 01/19/2010 GALLBLADDER SURGERY JOINT REPLACEMENT 08/11/2017, 07/11/2018 OTHER SURGICAL HISTORY Right 2014 Resection proximal phalanx 5th digit - foot - Dr. Conway NC KNEE SCOPE,DIAGNOSTIC Bilateral Right: 2016; left: 2019; Dr. Badillo [place] RELEASE FOOT/TOE NERVE Right 2012 Jarocho toe replacement - Dr. Yahir MILLER TOTAL ANKLE REPLACEMENT 08/2017 Beti Funk TOTAL KNEE ARTHROPLASTY 08/11/2018 Dr. Badillo TOTAL KNEE ARTHROPLASTY Left 05/13/2023 Dr Badillo TUBAL LIGATION Family History Problem Relation Name Age of Onset Cancer Mother Jen Zendejas Hypertension Mother Jen Zendejas Arthritis Mother Jen Zendejas Cancer Brother Allan Zendejas COPD Brother Allan Zendejas Diabetes Maternal Grandmother Melony Niño Diabetes Paternal Grandmother Radhika Zendejas Heart disease Sibling Melanoma Neg Hx Objective Physical Exam Constitutional: Appearance: Normal appearance. HENT: Head: Normocephalic and atraumatic. Cardiovascular: Comments: Pedal pulses: DP 2/4 bilateral, PT 2/4 bilateral. Skin temp is warm to warm. Varicosities: absent Hair growth: present Musculoskeletal: General: No deformity. Right lower leg: Edema present. Left lower leg: No edema. Comments: DEFORMITIES: History of hammertoe surgery fifth toe right foot and a jarocho-toe implant right great toe. R 1st MTPJ ROM is essentially zero but is pain free for pt. Hallux sits in dorsiflexed position on met head. Hx of Ankle joint replacement R. L 1st MTPJ ROM is limited. Flexible contracted digits 2,3,4 b/l. PAIN: pain at nails Skin: General: Skin is warm. Capillary Refill: Capillary refill takes 2 to 3 seconds. Comments: SKIN FINDINGS:cicatrix dorsal R 1st MTPJ and R anterior ankle. web spaces are clean/dry no erythema or ecchymosis noted . HYPERKERATOSIS:There is hyperkeratotic tissue with central nucleated core noted at dorsal lateral 5th DIPJ. Mild callus noted L distal tuft of 3rd digit. NAIL PATHOLOGY:Nails 2 and 3 R are malformed, 4mm thick, U shaped, discolored, fungal. Nails 2 and 3 L foot are discolored, 4mm thick, incurvated, with subungal debris. L Hallux nail is dystrophic. ULCER:none. Neurological: Mental Status: She is alert and oriented to person, place, and time. Comments: Light touch sensation intact VIBRATORY:Able to feel vibration beginning and ceasing medial and lateral column left and right foot.. SEMMES-AMADO 5.07 MONOFILAMENTintact 10/10 sites. Normal response to stimuli. Psychiatric: Mood and Affect: Mood normal. 15235 Assessment/Plan ICD-10-CM 1. Onychomycosis B35.1 2. Pain in toes of both feet M79.674 M79.675 3. Acquired keratoderma L85.1 4. Hammer toe of left foot M20.42 5. Porokeratosis Q82.8 Mycotic toenail debridement. All nails debrided in thickness and length. Instrumentation utilized: large and small nail nipper and curette and power bur. Discuss various treatments options including topical therapy vs oral medication. At this time the patient defers these options. Relief of discomfort noted by patient. All nails debrided appropriately. Web spaces inspected and found to be free of disease and ulceration. Shoes inspected and hygiene discussed. Advised to RTO on as needed basis This note was created with the assistance of a speech recognition program. While intending to generate a timely document that accurately reflects the content of the visit, no guarantee can be provided that every grammatical or spelling mistake has been or will be identified or corrected. Thank you for your understanding. Daphne Conway DPM documented in this encounter [facility] 06-02-2023 History of Present illness Narrative Images [...] develop for requiring urgent evaluation. Flavio Singleton DRUM STENCILER-TANGIBLE PERSONAL PROPERTY APPRAISER documented in this encounter [facility] 05-22-2023 History of Present illness Narrative Chief [...] (HYDRODIURIL) 25 mg, Oral, Daily Iron Polysacch [id number] (Poly-Iron 150 Forte) 150-0.025-1 MG capsule 1 [...] Valgus: negative Other Erythema: absent Scars: present ([place] present, removed, no dehiscence or drainage) Sensation: [...] that she continue with aylin crowell ABD, DAYAN and knee immobilizer at this time. She will call with any signs of infection. Questions answered in laymen terms at the bedside. The diagnosis, home exercise plan and any ongoing restrictions/ recommendations reviewed. If unable to be reached in office, I recommend evaluation at nearest Emergency Room if any symptoms worsened or new symptoms develop for requiring urgent evaluation. Flavio Singleton DRUM STENCILER-TANGIBLE PERSONAL PROPERTY APPRAISER documented in this encounter [facility] 04-16-2023 Note XR BONE LENGTH STUDY XR BONE LENGTH STUDY HISTORY: Preoperative evaluation. Leg length discrepancy. COMPARISON: None FINDINGS: Measurements explicitly not requested by ordering surgeon. No acute fracture, dislocation, or destructive osseous lesion within the [id number]. Orthopedic hardware of the right knee and [...] Allan Gonsales MD on 04/16/2023 2:41 PM [facility] 04-16-2023 Note XR BONE LENGTH STUDY HISTORY: Preoperative evaluation. Leg length discrepancy. COMPARISON: None FINDINGS: Measurements explicitly not requested by ordering surgeon. No acute fracture, dislocation, or destructive osseous lesion within the [id number]. Orthopedic hardware of the right knee and [...] in at the main lobby of the [facility]- registration desk is straight ahead as soon as you walk in. Tell them you are here for surgery. 2. If you have a Living Will/Durable Power of Nurse Aide Evaluator for Health Care that is not on [...] after you have bathed. 5. NO nail greek/acrylic on at least one finger. If you are having a hand, wrist or foot surgery then all nail greek and artificial/acrylic nails must be removed from [...] please call the Preadmission Testing office at [phone], Mon.-Fri. 7 a.m.-3 p.m. Leave a voicemail if needed. Pre-Surgery Instructions: Medication Instructions albuterol (PROVENTIL HFA;VENTOLIN HFA) 90 mcg/actuation inhaler Take morning of procedure if needed atorvastatin (LIPITOR) 40 mg tablet Stop taking 0 days prior to procedure budesonide-formoterol (SYMBICORT) 80-4.5 mcg/actuation inhaler Take morning of procedure calcium carbonate (OS-GDOWIN) 600 mg (1,500 mg) tablet Stop taking [...] with your doctor. documented in this encounter [facility] 06-19-2022 Note PROCEDURE: XR ANKLE RT MIN 3 VIEWS COMPARISON: 10/31/2021 HISTORY: Pain of right ankle joint FINDINGS: BONES:Ankle arthroplasty. No acute fracture, dislocation or mechanical failure. Subtalar fusion. Flattening of the plantar arch. Moderate degenerative changes SOFT TISSUES:Negative. No visible soft tissue swelling. EFFUSION:None visible. OTHER: Negative. IMPRESSION: Stable ankle arthroplasty and subtalar fusion Electronically authenticated by: MARY CHRISTIAN Date: 2022-06-19 18:05 [facility] 10-31-2021 Note PROCEDURE: XR ANKLE RT MIN 3 VIEWS COMPARISON: 04/24/2021 HISTORY: Pain of right ankle joint FINDINGS: BONES:Stable partial talus and tibial plafond arthroplasty. Subtalar fusion with cannulated screws. No acute fracture, dislocation or mechanical failure SOFT TISSUES:Soft tissue swelling EFFUSION:None visible. OTHER: Negative. IMPRESSION: Stable ankle replacement and subtalar fusion Electronically authenticated by: MARY CHRISTIAN Date: 2021-10-31 20:14 [facility] 10-31-2021 Note PROCEDURE: XR FOOT R [...] authenticated by: MARY CHRISTIAN Date: 2021-10-31 19:12 [facility] 06-11-2021 Evaluation note Encounter Date Diagnosis Assessment Notes May, Irritable bowel syndrome with diarrhea (ICD-10 - K58.0) [facility] Other 01-17-2022 Evaluation note* Encounter Date Diagnosis Assessment Notes Treatment Notes Treatment Clinical Notes Apr, Diarrhea (ICD-10 - R19.7) [facility] Other 11-18-2021 Evaluation note* Encounter Date Diagnosis Assessment Notes Treatment Notes Treatment Clinical Notes Feb, Irritable bowel syndrome with diarrhea (ICD-10 - K58.0) PATIENT STATES THAT SHE IS DOING WELL. PATIENT STATES THAT SHE HAS USED IMODIUM ONCE NEEDED. PATIENT IS ENCOURAGED CAN USE THE IMDOIUM DAILY WITH THE COLESTIPOL. [facility] Other 09-30-2021 Evaluation note* Encounter Date Diagnosis Assessment Notes Treatment Notes Treatment Clinical Notes Dec, Irritable bowel syndrome with diarrhea (ICD-10 - K58.0) Dec, Other Diarrhea material was printed START COLESIPOL 1 GRAM 2 PO DAILY OK TO USE IMODIUM PRN F/U HERE 6-8 WEEKS [facility] Other Evaluation note* Diagnosis Screening mammogram, encounter for documented in this encounter [employer] Phone: [email or web address] note* Diagnosis Dysuria documented in this encounter [employer] Phone: [email or web address] noteNo InformationNort Negorama Other Evaluation note* Diagnosis Nevus Benign neoplasm of skin, site unspecified documented in this encounter [employer] Phone: [email or web address] note* Diagnosis Status post total left knee replacement- Primary [facility] Diagnosis Status post total left knee replacement- Primary [facility] Phone: Evaluation note* Diagnosis Onychomycosis- Primary Dermatophytosis of nail Pain in toes of both feet Acquired keratoderma Hammer toe of left foot Porokeratosis Other specified congenital anomaly of skin [facility]* Diagnosis Onychomycosis- Primary Dermatophytosis of nail Pain in toes of both feet [facility]* Diagnosis Carpal tunnel syndrome of right wrist- Primary [facility]* Diagnosis Preop examination- Primary Unspecified pre-operative examination Hypertension, unspecified type Chronic obstructive pulmonary disease, unspecified COPD type ([facility]) Urinary frequency Osteoarthritis of left knee, unspecified osteoarthritis type Preop examination Unspecified pre-operative examination Hypertension, unspecified type Chronic obstructive pulmonary disease, unspecified COPD type ([facility]) Urinary frequency Preop examination Unspecified pre-operative examination Hypertension, unspecified type Chronic obstructive pulmonary disease, unspecified COPD type ([facility]) Urinary frequency Osteoarthritis of left knee, unspecified osteoarthritis type [facility] - [facility]* Type Description Date Medical History hypertension Medical History high cholesterol Surgical History CHOLECYSTECTOMY Surgical History RIGHT ARTHROSCOPY Surgical History RIGHT FOOT TOE REPLACEMENT Surgical History TUBAL LIGATION Surgical History RT KNEE REPLACEMENT 2018 Surgical History RT ANKLE 2018 Surgical History LEFT KNEE SCOPE 2019 Hospitalization History SEE ABOVE [facility] Narrative* Other Medical (Routine) - Closed Specialty Diagnoses / Procedures Referred By Aram t Referred To Contact Neurology Diagnoses Carpal tunnel syndrome, right upper limb Procedures NC NEEDLE EMG EA EXTREMTY W/PARASPINL AREA COMPLETE NC NERVE CONDUCTION STUDIES 9-10 STUDIES Diogo Armando MD [address] [facility] [place] [address] Phone: tel: fax: Diogo Foss MD [address] [place] [address] Phone: tel: fax: Referral ID Status Reason Start Date Expiration Date V isits Requested Visits Authorized [id number] Closed Perform Procedure 04/30/2024 10/27/2024 1 1 [facility] Reason for Referral Status Reason Specialty Diagnoses / Procedures Referred By Contact Referred To Contact Closed Radiology Diagnoses Visit for screening mammogram Procedures KENYA DIGITAL SCREEN W CAD BILATERAL HC MAMMO SCREENING INCL CAD IF PERF Elsie Jeffrey MD [address] [place] [address] Status Reason Specialty Diagnoses / Procedures Referre d By Contact Referred To Contact Closed Radiology Diagnoses Screening mammogram, encounter for Procedures KENYA MILAGRO DIGITAL SCREEN BILATERAL Karina Niño, JOY - CNM [address] [facility] [address] [place] [address] Status Reason Specialty Diagnoses / Procedures Referred By Contact Referred To Contact Closed Radiology Diagnoses Screening mammogram, encounter for Procedures KENYA DIGITAL SCREEN W OR WO CAD BILATERAL Elsie Jeffrey MD [address] [place] [address] [facility] [place] [address] [place] [address] Assessments Diagnosis Visit for screening mammogram Other screening mammogram Advance Directives Documents on File Type Date Recorded Patient Trust Clerk Expl anation Advance Directives and Living Will Power of Nurse Aide Evaluator Latest Code Status on File Code Status Date Activated Date Inactivated Comments Full Code 04/06/2019 10:44 AM Documents on File Type Date Recorded Patient Trust Clerk Expl anation ACP-Advance Directive ACP-Power of Nurse Aide Evaluator Documents on File Type Date Recorded Patient Trust Clerk Expl anation Advance Directives and Living Will Power of Nurse Aide Evaluator Latest Code Status on File Code Status Date Activated Date Inactivated Comments Full Code 04/06/2019 10:44 AM Documents on File Type Date Recorded Patient Trust Clerk Expl anation ACP-Advance Directive ACP-Power of Nurse Aide Evaluator Healthcare Agents on File Name Relationship Healthcare Agent Relationship Communication Diogo Patten Spouse Primary Decision Maker Advance Directive Response Recorded Date/ Time Advance Directives No February 3:57pm Latest Code Status on File Code Status Date Activated Date Inactivated Comments Full Code 08/11/2018 12:23 PM 08/13/2018 5:41 PM Summary Purpose Family History Relationship Condition Age at Onset Recorded Date/T [...] CAD IF PERF Elsie Jeffrey MD [address] [place] [address] Status Reason Specialty Diagnoses / Procedures Referred By Contact Referred To Contact Closed Radiology Diagnoses Screening mammogram, encounter for Procedures KENYA DIGITAL SCREEN W OR WO CAD BILATERAL Elsie Jeffrey MD [address] [place] [address] [facility] [address] [place] [address] Reason Comments Follow-up Reason Comments Toenail Care Pt presents today fo r nail and callus care. SS: 8.5 Reason Comments Toenail Care PT is here today req uesting nail care, no other concernsSS: 8.5 Care Teams (unrecognized sec tion and content) Upfitter Relationship Specialty Start Date End Date Elsie Jeffrey MD [address] [place] [address] PCP - General 08/17/13 Upfitter Relationship Specialty Start Date End Date Elsie Jeffrey MD [address] [place], [place] [id number] PCP - General Internal Medicine 11/08/22 Upfitter Relationship Specialty Start Date End Date Elsie Jeffrey MD [address] [place], [place] [id number] PCP - General Internal Medicine 11/08/22 Upfitter Relationship Specialty Start Date End Date Elsie Jeffrey MD [address] [place], [place] [id number] PCP - General Internal Medicine 11/08/22 Team Status: Active Member Role Status Dates Elsie Jeffrey MD Primary Care Provider Active Team Status: Inactive Member Role Status Dates James Quigley MD Attending Provider Active Start: July 30, 2023 End: July 30, 2023 Elsie Jeffrey MD Primary Care Provider Active Start: July 30, 2023 End: July 30, 2023 Upfitter Relationship Specialty Start Date End Date Elsie Jeffrey MD [address] [place], [place] [id number] PCP - General Internal Medicine 11/08/22 Upfitter Relationship Specialty Start Date End Date Elsie Jeffrey MD [address] [place], [place] [id number] PCP - General Internal Medicine 11/08/22 Upfitter Relationship Specialty Start Date End Date Elsie Jeffrey MD [address] [place] [id number] PCP - General Internal Medicine 11/08/22 Upfitter Relationship Specialty Start Date End Date Elsie Jeffrey MD [address] [place] [id number] PCP - General Internal Medicine 11/08/22 Upfitter Relationship Specialty Start Date End Date Elsie Jeffrey MD [address] [place] [id number] PCP - General Internal Medicine 11/08/22 Upfitter Relationship Specialty Start Date End Date Elsie Jeffrey MD [address] [place] [id number] PCP - General Internal Medicine 07/21/18 INFORMATION SOURCE (unrecogn ized section and content) DATE CREATED AUTHOR 06/25/2022 [facility] DATE CREATED AUTHOR AUTHOR'S ORGANIZ ATION 05/17/2023 [facility] DATE CREATED AUTHOR AUTHOR'S ORGANIZ ATION 07/24/2023 [facility] DATE CREATED AUTHOR AUTHOR'S ORGANIZ ATION 08/05/2023 [facility] DATE CREATED AUTHOR AUTHOR'S ORGANIZ ATION 02/10/2024 [place] [facility] DATE CREATED AUTHOR AUTHOR'S ORGANIZ ATION 05/01/2024 [facility] DATE CREATED AUTHOR AUTHOR'S ORGANIZ ATION 05/12/2024 [facility] EPIC Goals (unrecognized section and content) [...] BE BASED ON THE PRIMARY CLINICAL RECORDS. [employer] provides no warranty or guarantee of the accuracy or completeness of information in this document.
--- NOTE | 2024-06-23 08:52 | P.CN_ITS ---
Consult Note: HPI Data of Consult Patient: known to practice within the last 3 years Requesting Physician: Kassie Andrade NP Primary Care Provider: ELSIE JEFFREY Consult Narrative Reason for consult: low back pain Narrative: 73yof who presents for evaluation. worsening low back pain ongoing for years. has engaged in >6 weeks of provider directed home exercise program, with limited benefit. uses celebrex and flexeril with moderate benefit. denies adverse med side effects. previously underwent lumbar MRI, consistent with multilevel canal and neuroforaminal stenosis and facet hypertrophy. Pain today 5/10 increasing to 8. Pain in low back without radiation, annoying stiff worse in the AM. significant improvement in function with medication regimen. Pt going to drive to [place] for a 2 week trip and would like to discuss a medrol dose pack PRN. cc:: CC: Kassie Andrade NP Review of Systems ROS Status of ROS 10 or more systems reviewed and unremark able except as noted in history and below Musculoskeletal Reports: back pain and joint pain; Denies: extremity pain PFSH [facility] Medical History (Updated 06/04/24 @ 09:23 by Angeles Link NP) Neck pain ?M54.2 - Cervicalgia (ICD-10) Back pain ?M54.9 - Dorsalgia, unspecified (ICD-10) Arthritis ?M19.90 - Unspecified osteoarthritis, unspecified site (ICD-10) Seasonal allergies ?J30.2 - Other seasonal allergic rhinitis (ICD-10) IBS (irritable bowel syndrome) ?K58.9 - Irritable bowel syndrome, unspecified (ICD-10) Diarrhea ?R19.7 - Diarrhea, unspecified (ICD-10) Extremity edema ?R60.0 - Localized edema (ICD-10) High cholesterol ?E78.00 - Pure hypercholesterolemia, unspecified (ICD-10) Cataract ?H26.9 - Unspecified cataract (ICD-10) Carpal tunnel syndrome ?G56.00 - Carpal tunnel syndrome, unspecified upper limb (ICD-10) Osteoarthritis ?M19.90 - Unspecified osteoarthritis, unspecified site (ICD-10) Acid reflux ?K21.9 - Gastro-esophageal reflux disease without esophagitis (ICD-10) COPD (chronic obstructive pulmonary disease) ?J44.9 - Chronic obstructive pulmonary disease, unspecified (ICD-10) Palpitations ?R00.2 - Palpitations (ICD-10) HTN (hypertension) ?I10 - Essential (primary) hypertension (ICD-10) Surgical History (Updated 06/04/24 @ 09:23 by Angeles Link NP) History of colonoscopy ?Z98.890 - Other specified postprocedural states (ICD-10) History of arthroscopy of knee ?Z98.890 - Other specified postprocedural states (ICD-10) History of carpal tunnel release ?Z98.890 - Other specified postprocedural states (ICD-10) History of knee replacement ?Z96.659 - Presence of unspecified artificial knee joint (ICD-10) History of total ankle replacement ?Z96.669 - Presence of unspecified artificial ankle joint (ICD-10) History of arthroscopic knee surgery ?Z98.890 - Other specified postprocedural states (ICD-10) Hx of cholecystectomy ?Z90.49 - Acquired absence of other specified parts of digestive tract (ICD- 10) History of tubal ligation ?Z98.51 - Tubal ligation status (ICD-10) Family History (Updated 06/04/24 @ 09:23 by Angeles Link NP) Other Family history of aneurysm Family history of cancer Family history of hypertension Family history of myocardial infarction Social History (Updated 06/04/24 @ 09:18 by Angeles Link NP) Within the past year, how often did you have a drink containing alcohol: monthly or less Smoking status: Former smoker Non-prescribed substance use: denies use Highest level of school completed/degree received: Bachelor's degree Meds Home Medications and Allergies Home Medications ?Medication ?Instructions ?Recorded ?Confirmed ?Type atorvastatin 40 mg tablet 40 mg PO DAILY 07/14/23 06/14/24 History celecoxib 200 mg capsule (Celebrex) 200 mg PO DAILY 07/14/23 06/14/24 History hydrochlorothiazide 25 mg tablet 25 mg PO DAILY 07/14/23 06/14/24 History lisinopril 10 mg tablet 10 mg PO QPM 07/14/23 06/14/24 History loperamide 2 mg capsule 2 mg PO Q6H PRN loose stool 07/14/23 06/14/24 History loratadine 10 mg tablet (Claritin) 10 mg PO DAILY 07/14/23 06/14/24 History budesonide-formoterol HFA 160 2 inh inhalation BID 06/04/24 06/14/24 History mcg-4.5 mcg/actuation aerosol inhaler (Symbicort) calcium 600 mg capsule 1,200 mg PO DAILY 06/04/24 06/14/24 History omeprazole 40 mg capsule,delayed 40 mg PO DAILY 06/04/24 06/14/24 History release hydrocodone 5 mg-acetaminophen 325 1 tab PO Q6H PRN pain #7 tabs 06/14/24 Rx mg tablet Allergies Allergy/AdvReac Type Severity Reaction Status Date / Time codeine Allergy tachycardia Verified 06/04/24 09:13 Exam Constitutional Documenting provider has reviewed patient's vital signs: yes Common normals: no apparent distress, oriented x3, healthy appearing, alert and well nourished General appearance: cooperative HENMT Common normals: normocephalic, hearing grossly normal bilaterally and moist oral mucous membranes Head and scalp: normocephalic Eye Common normals: PERRL Pupil: PERRL Neck & C-Spine Common normals: full ROM General: normal visual inspection Chest Common normals: inspection of chest normal Respiratory Common normals: normal respiratory effort, no retractions and no use of accessory muscles Back & Pelvis Lumbar spine/lower back: normal to inspection, pain with ROM and straight leg raise negative bilaterally Sacroiliac joints: SI joints normal Other: facet loading positive bilaterally tenderness over left L4-5 L5-S1 facets increased pain with standing and walking, improved with forward flexion and sitting Extremity Common normals: normal to inspection and full ROM Neuro Common normals: oriented x3, CN's II-XII intact bilaterally, moves all extremities, no focal motor deficits, no sensory deficits noted and deep tendon reflexes 2+ bilaterally Sensorium/orientation: alert Motor exam: strength 5/5 throughout and no movement abnormalities noted Psych Common normals: mental status grossly normal, thought process normal, cooperative, affect normal, speech normal and activity/motor behavior normal Speech: normal speech Thought process: normal thought process Results Additional Findings Additional findings: If on a controlled substance or opioids, I have checked an [place] report on this patient and there are no aberrancies noted in the prescribing history.??If on a controlled substance or opioid a drug screen was completed and reviewed within the last year, and if there has not been a drug screen completed we ordered one today to monitor higher risk, state monitored pain medication use. As part of providing excellent, safe, comprehensive care, the following was completed at our patient's visit: 1. A medication reconciliation and review to ensure accurate knowledge of current/active medications, including asking our patients to inform us about any [id number] medications or herbal remedies/nutritional supplements/alternative remedies. 2. A review to specifically ensure our patients have had annual screening for screening for depression, screening for tobacco use, and screening for unhealthy alcohol use. For concerning screenings had a discussion with the patient, provided patient education, and recommended follow-up with primary care provider when appropriate. If patient noted with a risk of falling, they received education on strength, gait, and balance training to prevent future risk of falling. Portions of this note may have been carried over from the previous visit and updated as appropriate. Please note this office utilizes paper charting in addition to the electronic medical record. A list of current medications, vitals, and PMH is available the re as the clinical staff outside of myself do not have access to [employer] charting during the clinic day operations. As part of providing quality comprehensive care the current medications, vitals, and PMH were reviewed in the paper chart. Assessment and Plan Assessment and Plan (1) Lumbar spondylosis: (2) Myofascial pain: (3) Lumbar stenosis with neurogenic claudication: Plan medrol dose pack for acute on chronic low back pain PRN dispense 1 continue flexeril 10mg daily PRN pain/spasms and celebrex 200mg daily PRN continue HEP as tolerated f/u PRN
== END 2024-06-23 08:10 | disposition home or self-care (01) ==
LOC: PM 08:10
PROVIDERS: PCP Internal Medicine; Visit Provider Nurse Practitioner
DX: M25.571 Pain in right ankle and joints of right foot (principal); M47.816 Spondylosis without myelopathy or radiculopathy, lumbar region; M48.062 Spinal stenosis, lumbar region with neurogenic claudication; M79.18 Myalgia, other site
CPT/HCPCS: 73610; G0463

== ENCOUNTER 2024-06-23 09:05 | Outpatient (OUT) | payer MEDICARE, SELFPAY ==
--- NOTE | 2024-06-23 09:09 | XR_ITS ---
[facility] [place] [place] [id number] Patient Name: ALEXANDRE PATTEN MRN: [id number] date: 1950 Sex: F Assigned Patient Location: [facility] Current Patient Location: [facility] Accession/Order Number: [id number] Exam Date: 06/23/2024 22:58 Report Date: 06/23/2024 23:00 At the request of: KAVITHA PARSONS DPElba Procedure: XR ankle RT min 3V RIGHT ANKLE - 3 views CLINICAL HISTORY: Follow-up ankle replacement. COMPARISON: Right ankle 06/25/2023 FINDINGS: Ankle prosthesis grossly unchanged in configuration compared to the prior study. Calcaneal hardware without evidence of hardware complication. No acute fracture is seen. Diffuse soft tissue swelling. XR/XR ankle RT min 3V IMPRESSION: NO ACUTE FINDINGS. Impression dictated by: Fredy Wong Jr., D.O.06/23/2024 11:00 PM Dictation Location: [facility] Electronically authenticated by: [id number] Y Date: 06/23/2024 23:00
== END 2024-06-23 09:06 | disposition home or self-care (01) ==
LOC: RAD 09:05
PROVIDERS: PCP Internal Medicine; Visit Provider Podiatrist Foot & Ankle Surgery
DX: M25.571 Pain in right ankle and joints of right foot (principal)
CPT/HCPCS: 73610